=== PATIENT | male | born 1965 | race Caucasian/White ===

== ENCOUNTER 2021-01-10 14:29 | Emergency (ER) | payer MEDICARE, SELFPAY ==
[~2021-01-10] VITALS: Ht 177.8 cm; Wt 77.3 kg
--- OUTSIDE RECORDS SUMMARY | 2021-01-10 14:42 | CCD ---
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 Name Role Phone Maring, Selvin PA Unavailable Unavailable Maring, Selvin PA Unavailable Unavailable Maring, Selvin PA Unavailable Unavailable Maring, Selvin PA Unavailable Unavailable Maring, Selvin PA Unavailable Unavailable Maring, Selvin PA Unavailable Unavailable Maring, Selvin PA Unavailable Unavailable Maring, Selvin PA Unavailable Unavailable Maring, Selvin PA Unavailable Unavailable Maring, Selvin PA Unavailable Unavailable Maring, Selvin PA Unavailable Unavailable Maring, Selvin PA Unavailable Unavailable Maring, Selvin PA Unavailable Unavailable Maring, Selvin PA Unavailable Unavailable Maring, Slevin PA Unavailable Unavailable Maring, Selvin PA Unavailable Unavailable MONAHugh BARLOW MD Unavailable Unavailable MONA, Hugh HOLLIDAY MD Unavailable Unavailable MONAHugh BARLOW MD Unavailable Unavailable MONAHugh BARLOW MD Unavailable Unavailable MONAHugh BARLOW MD Unavailable Unavailable MONAHugh MD Unavailable Unavailable MONAHugh BARLOW MD Unavailable Unavailable MONAHugh BARLOW MD Unavailable Unavailable MONAHugh BARLOW MD Unavailable Unavailable MONAHugh BARLOW MD Unavailable Unavailable MONAHugh BARLOW MD Unavailable Unavailable MONAHugh BARLOW MD Unavailable Unavailable MONAHugh BARLOW MD Unavailable Unavailable MONAHugh BARLOW MD Unavailable Unavailable MONAHugh BARLOW MD Unavailable Unavailable MONAHugh BARLOW MD Unavailable Unavailable Hugh DUNN MD Unavailable Unavailable MONAHugh BARLOW MD Unavailable Unavailable MONAHugh BARLOW MD Unavailable Unavailable MONA, Hugh HOLLIDAY MD Unavailable Unavailable MONA, Hugh HOLLIDAY MD Unavailable Unavailable MONA, Hugh HOLLIDAY MD Unavailable Unavailable MONA, Hugh HOLLIDAY MD Unavailable Unavailable MONA, Hugh HOLLIDAY MD Unavailable Unavailable MONA, Hugh HOLLIDAY MD Unavailable Unavailable MONA, Hugh HOLLIDAY MD Unavailable Unavailable MONA, Hugh HOLLIDAY MD Unavailable Unavailable MONA, Hugh HOLLIDAY MD Unavailable Unavailable MONA, Hugh HOLLIDAY MD Unavailable Unavailable MONA, Hugh HOLLIDAY MD Unavailable Unavailable MONA, Hugh HOLLIDAY MD Unavailable Unavailable MONA, Hugh HOLLIDAY MD Unavailable Unavailable MONA, Hugh HOLLIDAY MD Unavailable Unavailable MONA, Hugh HOLLIDAY MD Unavailable Unavailable MONA, Hugh HOLLIDAY MD Unavailable Unavailable MONA, Hugh HOLLIDAY MD Unavailable Unavailable MONA, Hugh HOLLIDAY MD Unavailable Unavailable MONA, Hugh HOLLIDAY MD Unavailable Unavailable MONA, Hugh HOLLIDAY MD Unavailable Unavailable MONA, Hugh HOLLIDAY MD Unavailable Unavailable MONA, Hugh HOLLIDAY MD Unavailable Unavailable MONA, Hugh HOLLIDAY MD Unavailable Unavailable MONA, Hugh HOLLIDAY MD Unavailable Unavailable MONA, Hugh HOLLIDAY MD Unavailable Unavailable MONA, Hugh HOLLIDAY MD Unavailable Unavailable MONA, Hugh HOLLIDAY MD Unavailable Unavailable MONA, Hugh HOLLIDAY MD Unavailable Unavailable MONA, Hugh HOLLIDAY MD Unavailable Unavailable MONA, Hugh HOLLIDAY MD Unavailable Unavailable MONA, Hugh HOLLIDAY MD Unavailable Unavailable MONA, Hugh HOLLIDAY MD Unavailable Unavailable MONA, Hugh HOLLIDAY MD Unavailable Unavailable MONA, Hugh HOLLIDAY MD Unavailable Unavailable MONA, Hugh HOLLIDAY MD Unavailable Unavailable MONA, Hugh HOLLIDAY MD Unavailable Unavailable MONA, Hugh HOLLIDAY MD Unavailable Unavailable MONA, Hugh HOLLIDAY MD Unavailable Unavailable MONA, Hugh HOLLIDAY MD Unavailable Unavailable MONA, Hugh HOLLIDAY MD Unavailable Unavailable MONA, Hugh HOLLIDAY MD Unavailable Unavailable MONA, Hugh HOLLIDAY MD Unavailable Unavailable MONA, Hugh HOLLIDAY MD Unavailable Unavailable MONA, Hugh HOLLIDAY MD Unavailable Unavailable MONA, Hugh HOLLIDAY MD Unavailable Unavailable MONA, Hugh HOLLIDAY MD Unavailable Unavailable MONA, Hugh HOLLIDAY MD Unavailable Unavailable MONA, Hugh HOLLIDAY MD Unavailable Unavailable MONA, Hugh HOLLIDAY MD Unavailable Unavailable MONA, Hugh HOLLIDAY MD Unavailable Unavailable MONA, Hugh HOLLIDAY MD Unavailable Unavailable MONA, Hugh HOLLIDAY MD Unavailable Unavailable MONA, Hugh HOLLIDAY MD Unavailable Unavailable MONA, Hugh HOLLIDAY MD Unavailable Unavailable MONA, Hugh HOLLIDAY MD Unavailable Unavailable MONA, Hugh HOLLIDAY MD Unavailable Unavailable MONA, Hugh HOLLIDAY MD Unavailable Unavailable MONA, Hugh HOLLIDAY MD Unavailable Unavailable MONA, Hugh HOLLIDAY MD Unavailable Unavailable MONA, Hugh HOLLIDAY MD Unavailable Unavailable MONA, Hugh HOLLIDAY MD Unavailable Unavailable MONA, Hugh HOLLIDAY MD Unavailable Unavailable MONA, Hugh HOLLIDAY MD Unavailable Unavailable Tallerico, D Wilbert DO Unavailable Unavailable Tallerico, D Wilbert DO Unavailable Unavailable Tallerico, D Wilbert DO Unavailable Unavailable Tallerico, D Wilbert DO Unavailable Unavailable [place]erico, D Wilbert DO Unavailable Unavailable Tallerico, D Wilbert DO Unavailable Unavailable Tallerico, D Wilbert DO Unavailable Unavailable Tallerico, D Wilbert DO Unavailable Unavailable Tallerico, D Wilbert DO Unavailable Unavailable Tallerico, D Wilbert DO Unavailable Unavailable Tallerico, D Wilbert DO Unavailable Unavailable Tallerico, D Wilbert DO Unavailable Unavailable Tallerico, D Wilbert DO Unavailable Unavailable Tallerico, D Wilbert DO Unavailable Unavailable Tallerico, D Wilbert DO Unavailable Unavailable Tallerico, D Wilbert DO Unavailable Unavailable Tallerico, D Wilbert DO Unavailable Unavailable Tallerico, D Wilbert DO Unavailable Unavailable Tallerico, D Wilbret DO Unavailable Unavailable Tallerico, D Wilbert DO Unavailable Unavailable Tallerico, D Wilbert DO Unavailable Unavailable CONSUELO, Deanna FERGUSON MD Unavailable Unavailable CONSUELO, Deanna FERGUSON MD Unavailable Unavailable CONSUELO, Deanna FERGUSON MD Unavailable Unavailable CONSUELO, Deanna FERGUSON MD Unavailable Unavailable CONSUELO, Deanna FERGUSON MD Unavailable Unavailable CONSUELO, Deanna FERGUSON MD Unavailable Unavailable CONSUELO, Deanna FERGUSON MD Unavailable Unavailable CONSUELO, Deanna FERGUSON MD Unavailable Unavailable CONSUELO, Deanna FERGUSON MD Unavailable Unavailable CONSUELO, Deanna FERGUSON MD Unavailable Unavailable Martinez, M Trina RECEPTION SPECIALIST Unavailable Unavailable Martinez, M Trina RECEPTION SPECIALIST Unavailable Unavailable Martinez, M Trina RECEPTION SPECIALIST Unavailable Unavailable Martinez, M Trina RECEPTION SPECIALIST Unavailable Unavailable Martinez, M Trina RECEPTION SPECIALIST Unavailable Unavailable Martinez, M Trina RECEPTION SPECIALIST Unavailable Unavailable Martinez, M Trina RECEPTION SPECIALIST Unavailable Unavailable Martinez, M Trina RECEPTION SPECIALIST Unavailable Unavailable Martinez, M Trina RECEPTION SPECIALIST Unavailable Unavailable Martinez, M Trina RECEPTION SPECIALIST Unavailable Unavailable Martinez, M Trina RECEPTION SPECIALIST Unavailable Unavailable Martinez, M Trina RECEPTION SPECIALIST Unavailable Unavailable Martinez, M Trina RECEPTION SPECIALIST Unavailable Unavailable Martinez, M Trina RECEPTION SPECIALIST Unavailable Unavailable Martinez, M Trina RECEPTION SPECIALIST Unavailable Unavailable Martinez, M Trina RECEPTION SPECIALIST Unavailable Unavailable Martinez, M Trina RECEPTION SPECIALIST Unavailable Unavailable Martinez, M Trina RECEPTION SPECIALIST Unavailable Unavailable Martinez, M Trina RECEPTION SPECIALIST Unavailable Unavailable Martinez, M Trina RECEPTION SPECIALIST Unavailable Unavailable Martinez, M Trina RECEPTION SPECIALIST Unavailable Unavailable Martinez, M Trina RECEPTION SPECIALIST Unavailable Unavailable Martinez, M Trina RECEPTION SPECIALIST Unavailable Unavailable Martinez, M Trina RECEPTION SPECIALIST Unavailable Unavailable Martinez, M Trina RECEPTION SPECIALIST Unavailable Unavailable Martinez, M Trina RECEPTION SPECIALIST Unavailable Unavailable Martinez, M Trina RECEPTION SPECIALIST Unavailable Unavailable GRACE, GAYATRI Unavailable Unavailable Travis, [place] Unavailable [phone] Travis, [place] Unavailable [phone] Travis, [place] Unavailable [phone] Travis, [place] Unavailable [phone] [place]ainhaw, [place] Unavailable [phone] Hussain[place], [place] Unavailable [phone] GILBERG, ALICIA PA Unavailable Unavailable GILBERG, ALICIA PA Unavailable Unavailable GILBERG, ALICIA PA Unavailable Unavailable GILBERG, ALICIA PA Unavailable Unavailable GILBERG, ALICIA PA Unavailable Unavailable GILBERG, ALICIA PA Unavailable Unavailable GILBERG, ALICIA PA Unavailable Unavailable GILBERG, ALICIA PA Unavailable Unavailable GILBERG, ALICIA PA Unavailable Unavailable Re-disclosure Warning The records that you are about to access may contain information from federally-assisted alcohol or drug abuse programs. If such information is present, then the following federally mandated warning applies: This information has been disclosed to you from records protected by federal confidentiality rules (42 CFR part 2). The federal rules prohibit you from making any further disclosure of this information unless further disclosure is expressly permitted by the written consent of the person to whom it pertains or as otherwise permitted by 42 CFR part 2. A general authorization for the release of medical or other information is NOT sufficient for this purpose. The Federal rules restrict any use of the information to criminally investigate or prosecute any alcohol or drug abuse patient.The records that you are about to access may contain highly sensitive health information, the redisclosure of which is protected by Article 27-F of the [facility] Public Health law. If you continue you may have access to information: Regarding HIV / AIDS; Provided by facilities licensed or operated by the [facility] Office of Mental Health; or Provided by the [facility] Office for People With Developmental Disabilities. If such information is present, then the following [facility] mandated warning applies: This information has been disclosed to you from confidential records which are protected by state law. State law prohibits you from making any further disclosure of this information without the specific written consent of the person to whom it pertains, or as otherwise permitted by law. Any unauthorized further disclosure in violation of state law may result in a fine or halfway sentence or both. A general authorization for the release of medical or other information is NOT sufficient authorization for further disc losure. 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 Status Observation Descr iption Data Source(s) No Directive Type specified PT STATES NO ADVANCE DIRECTIVES completed No Directive Type specified [facility] No Directive Type specified PT STATES NO ADVANCE DIRECTIVES completed No Directive Type specified [facility] Encounters Encounter Providers Location Date Indications Data Source(s ) Outpatient Attender: Selvin JORDAN 01/10/20 08:04:53 AM EDT - 01/09/2021 08:54:21 AM EDT [facility] ([facility] ) Outpatient Attender: [place] Robles 10/18 11:09:22 AM EDT - 10/18/2020 12:01:52 PM EDT [facility] ([facility] ) Outpatient Attender: Wilbert Castro DO [facility] 05/09/2020 08:00:00 AM EST [facility] ([facility]) Outpatient Attender: [facility] 04/18/2020 07:00:00 AM EST [facility] ([facility]) Outpatient Attender: ALICIA FOY PAAt tender: PHYLLIS CORDERO MDAdmitter: ALICIA FOY PAConsultant: PHYLLIS CORDERO MDConsultant: ALICIA FOY PAConsultant: GAYATRI GRACE OUTPAT[facility] 04/15/2020 08:01:00 AM EST - 04/15/2020 09:43:00 AM [facility] Patient discharged. Outpatient Attender: ALICIA FOY PAAt tender: PHYLLIS CORDERO MDAdmitter: ALICIA FOY PAConsultant: PHYLLIS CORDERO MDConsultant: ALICIA FOY PA OUTPATIENT-[facility] 04/03/2020 09:07:00 AM EST - 04/03/2020 09:35:00 AM [facility] Patient discharged. Recurring Patient Attender: Trina Martinez NPReferrer: MG AKERS MD 03/22/2020 10:36:21 AM [facility] [place] [facility] Status Immunizations Vaccine Date Status Description Data Source(s) COVID-19 VACCINE Moderna 07/20/2020 12:00:00 AM EDT completed [place] Vaccine Series Complete: YESThis Data wa s Submitted to [facility] [address]. COVID-19 VACCINE Moderna 06/22/2020 12:00:00 AM EDT completed [place] Vaccine Series Complete: NOThis Data was Submitted to [facility] [address]. Medications Medication Brand Name Start Date Product Form Dose Route Admi nistrative Instructions Pharmacy Instructions Status Indications Reaction Description Data Source(s) Cephalexin 500 MG Oral Capsule CEPHALEXIN 10/18/2020 12:00:00 AM EDT capsule 21 TAKE ONE CAPSULE BY MOUTH THREE TIMES A DAY FOR 7 DAYS TAKE ONE CAPSULE BY MOUTH THREE TIMES A DAY FOR 7 DAYS SOLD: 10/18/2020 [facility] Insurance Providers Payer name Policy type / Coverage type Policy ID Covered democrat ID Covered democrat's relationship to grimes Policy Grimes Plan Information BC MEDICARE BLUE PPO [id number] Patient is Insur ed [id number] UNINSURED COVID NOTNEEDED Patient is Insured NOTNEEDED [facility] Medicare P [id number] SELF [id number] [facility] MED[facility]ARE [id number] Dione [id number] [facility] MEDICARE [id number] Dione [id number] [employer] MED[employer] BLUE PPO G [id number] Self [id number] [facility] Medicare P [id number] SELF [id number] [facility] MEDICARE [id number] Dione [id number] [employer] Blue [employer] and Blue Shield - [facility] Blue Cross/ Blue Shield [id number] Self [id number] [employer] Blue [employer] and Blue [employer] - [place] Blue Cross/B e Shield [id number] Self [id number] [employer] MEDICARE Medicare [facility] MEDICARE BLUE PPO [id number] SP [id number] [employer] O [id number] S [id number] MEDICARE M [id number] S [id number] A BLUE CROSS O [id number] S [id number] Problems, Conditions, and Diagnoses No Information Surgeries/Procedures Procedure Description Date Indications Data Source(s) RADEX FOOT COMPLETE MINIMUM 3 VIEWS 04/18/2020 12:00:0 0 AM EST [facility] ([facility]) Results ID Date Data Source [id number] 04/20/2020 01:18:04 PM EST [facility] Note status: FINAL (SIGNED)Full name: SIVAKUMAR HUBERate of : 1965Visit ID: [id number] record number: [id number] Care Physician: NONE, NONEAge: 54YSex: Male[facility] 2Date of service: 04/15/2020 08:12Creation date: 04/15/2020 08:12Attending physician: Carlo CORDERO patient first seen: 0815 Informant: PatientHPI Chief Complaint: Left foot painHPI duration: 36 hoursHPI context: 54-year-old male sustained an accidental slip and fall during which he "rolled" his ankle. Since that time he has been taking ibuprofen for pain management and is unable to comfortably bear weight. The patient is offered pain management which he declines.HPImodifying factors: IbuprofenReview of SystemsAll systems reviewed and negative except as noted in HPITriage Note: slipped on ice Thursday am, left foot pain [YARIEL HUBER. 04/15/20 08:11]Past Medical/Surgical HistoryPast medical/surgical history reviewedHome MedicationsHome medications r DignaergiesAllergies reviewedLast Verified By: YARIEL HUBER RN on 04/15/2020 08:12Latex Vital SignsVital signs reviewedMost recent vital signsBP: 124/91 04/15/2020 08:14 Pulse: 74 04/15/2020 08:14 Temp: 98.0 F 04/15/2020 08:14 Resp: 18 04/15/2020 08:14 O2 Sat: 100.0%(Room Air) 04/15/2020 08:14 Calculated BMI: 0.2 04/15/2020 08:06 Pain score 4Admission height (inches): 710Admission weight (kgs): 80Triage Vital SignsTemp: 98F 04/15/2020 08:14 Pulse: 74 bpm 04/15/2020 08:14 Respirations: 18 04/15/2020 08:14 Blood Pressure: 124/91 mmHg 04/15/2020 08:14 O2Sat: 100 % 04/15/2020 08:14 Height: 710 in 04/15/2020 08:06 Weight: 80 kg 04/15/2020 08:06 Calculated BMI: 0.2 04/15/2020 08:06 Physical ExamConst: Within normal limitsCVS: Within normal limitsResp: Within normal limitsMusccomments: There is minimal swelling at the region of the medial malleolus of the left low er extremity.Extremcomments: The dorsum of the left foot with tenderness to palpation. Swelling at the medial malleolus. There is no crepitus or discoloration; distal capillary refill is brisk, sensation remains intact.Skin: Within normal limitsInitial impression: Sprain/strain/fracture involving the left ankle and/or foot. Pain management, x-rays.OrdersStart Date;Description;Frequency;Ordered By;Status04/15/2020;ANKLE COMPLETE LEFT ;Once;ALICIA FOY;[place] Met04/15/2020;FOOT COMPLETE LEFT ;Once;ALICIA FOY;[place] Met04/15/2020;ED-PROVIDE CRUTCHES WITH TRAINING ;Once;ALICIA FOY;[place] MetLaboratoryRadiologyXray results comments: X-ray left foot: Cortical irregularity at the tuft of the first distal phalanx which could represent a nondisplaced fracture in the appropriate clinical context, recommend correlation for point tenderness. No other evidence of fracture or dislocation. X-ray left ankle corticated ossific fragment at the tip of the medial malleolus, injury of chronic nature. No acute osseous abnormality appreciated. No significant ankle joint effusion.EKG/Rhythm Strip InterpretationProcedures: Verbal consent obtained, timeout taken and patient identified with 2 forms identification, using aseptic technique, the left foot is wrapped with 3 inch web roll, a 3 inch short leg fiberglass splint is applied and secured with 4 inch Guido wrap. Pre and post pulse, motor and sensation are assessed and normal. Crutches are provided. Patient tolerated procedure well.Diagnosis: Foot pain; toe fractureDisposition time: 909 Condition: StableDischarge plan: Pain management, crutches for ambulation, orthopedic follow-up.Midlevel signature: Sherlyn OROSCO signature date: 04/15/2020 09:27Physician signature: Lloyd FOWLER signature date: 04/18/2020 09:09 Name Value Range Interpretation Code Description Data Maryann rce(s) Supporting Document(s) ID Date Data Source [id number] 04/18/2020 08:14:00 AM EST [facility] ([facility]) Name Value Range Interpretation Code Description Data Maryann rce(s) Supporting Document(s) Foot, Complete LT Laboratory test result [facility] ([facility]) ID Date Data Source [id number] 04/15/2020 08:39:25 AM EST [facility] 04/15/2020 8:27 AMLEFT FOOT X-RAYSCLINICA L INFORMATION: INJURY, UNSPECIFIED, -- INJURY, UNSPECIFIEDCOMPARISON: None.PROCEDURE: Frontal, lateral, and oblique projections of the left foot wereobtained.IMPRESSION/FINDINGS:Cortical irregularity at the tuft of the first distal phalanx which couldrepresent a nondisplaced fracture in the appropriate clinical context,recommend correlation for point tenderness. No other evidence of fracture ordislocation.END OF IMPRESSIONI have personally reviewed the images and the Resident's/Fellow'sinterpretation and agree with or edited the findings.[facility] submits Rad[facility] then provides those same results to [facility]. Allresults are available to [facility] and [facility] provider portalusers. [facility] DICOM images are available to [facility] provider portal users only. [facility] DICOMimages are not available to the [facility] provider portal users. There isno current [facility] functionality allowing images to be available [facility] to [facility] connectivity.Interpreted By: Antione Sanders M.D.Electronically signed By: Gayatri Grace M.D., MBA, FACRRead By: GAYATRI Springerte: 04/15/2020 08:36 Name Value Range Interpretation Code Description Data Maryann rce(s) Supporting Document(s) ID Date Data Source [id number] 04/15/2020 08:37:39 AM EST [facility] 04/15/2020 8:28 AMLEFT ANKLE X-RAYSCLINIC AL INFORMATION: PAIN, UNSPECIFIED, -- PAIN, UNSPECIFIEDCOMPARISON: None.PROCEDURE: AP, lateral, and mortise projections of the left ankle were obtained.IMPRESSION/FINDINGS:Corticated ossific fragment at the tip of the medial malleolus, injury ofchronic nature. No acute osseous abnormality appreciated. No significant anklejoint effusion.END OF IMPRESSIONI have personally reviewed the images and the Resident's/Fellow'sinterpretation and agree with or edited the findings.[facility] submits Radiology results to [facility] then provides those same results to [facility]. Allresults are available to [facility] and [facility] provider portalusers. [facility] DICOM images are available to [facility] provider portal users only. [facility] DICOMimages are not available to the [facility] provider portal users. There isno current [facility] functionality allowing images to be available throughthe [facility] to [facility] connectivity.Interpreted By: Isaura Moe MDElectronically signed By: Gayatri Grace M.D., MBA, FACRRead By: GAYATRI Ashton: 04/15/2020 08:34 Name Value Range Interpretation Code Description Data Maryann rce(s) Supporting Document(s) ID Date Data Source [id number] 04/05/2020 11:15:16 AM EST [facility] Note status: FINAL (SIGNED)Full name: Reji HUBER of : 1965Visit ID: [id number] record number: [id number] Care Physician: NONE, NONEAge: 54YSex: Male[facility] location: [facility] 3Date of service: 04/03/2020 09:36Creation date: 04/03/2020 09:36Attending physician: Carlo CORDERO patient first seen: 919 Informant: PatientHPI Chief Complaint: Subjective fever, generalized body aches and fatigue, abdominal discomfort and headache.HPI duration: 48 hoursHPI context: 54-year-old male with possible sick contact presents with a 2-day history of generalized body aches, fatigue, abdominal discomfort, headache and subjective fever.HPINo modifying factors: NoneReview of SystemsAll systems reviewed and negative except as noted in HPITriage Note: pt states fevers, bodyaches, fatigue, stomachache, BURNS. unemployed [ROSIE TEMPLE 04/03/20 09:21]Past Medical/Surgical HistoryPast medical/surgical history reviewedHome MedicationsHome medications reviewedAllergiesAllergies reviewedLast Verified By: ROSIE TEMPLE RN on 04/03/2020 09:21Latex Vital SignsVital signs reviewedMost recent vital signsBP: 143/86 04/03/2020 09:30 Pulse: 67 04/03/2020 09:30 Temp: 99.0 F 04/03/2020 09:30 Resp: 16 04/03/2020 09:30 O2 Sat: 98.0%(Room Air) 04/03/2020 09:30 Calculated BMI: 25.2 04/03/2020 09:18 Admission height (inches): 70Admission weight (kgs): 79Triage Vital SignsTemp: 99F 04/03/2020 09:30 Pulse: 67 bpm 04/03/2020 09:30 Respirations: 16 04/03/2020 09:30 Blood Pressure: 143/86 mmHg 04/03/2020 09:30 O2Sat: 98 % 04/03/2020 09:30 Height: 70 in 04/03/2020 09:18 Weight: 79 kg 04/03/2020 09:18 Calculated BMI: 25.2 04/03/2020 09:18 Physical ExamConst: Within normal limitsEyes: within normal limitsHENT: Within normal limits, No nasal discharge, Oral mucosa moist/clearCVS: Within normal limitsResp: Within normal limits, Clear to auscultation bilaterally, No wheezes/rales/rhonchiSkin: Within normal limitsInitial impression: Viral syndrome. Obtain specimen for COVID-19 testingOrdersStart Date;Description;Frequency;Ordered By;Status04/03/2020;COVID-19, Nucleic Acid Amplification PCR [[employer]] ;Once;PHYLLIS CORDERO;Dates MetLaboratoryRadiologyEKG/Rhythm Strip InterpretationDiagnosis: Viral syndromeDisposition time: 929 Condition: UnchangedDischarge plan: Quarantine, follow labs, zcqg-uro-[id number] remedies for symptoms as needed.Midlevel signature: Sherlyn OROSCO signature date: 04/03/2020 09:38Physician signature: Lloyd FOWLER signature date: 04/05/2020 11:13 Name Value Range Interpretation Code Description Data Maryann rce(s) Supporting Document(s) ID Date Data Source [id number] 04/05/2020 11:15:14 AM EST [facility] Note status: FINAL (SIGNED)Patient name: Reji NARANJO of : 1965Visit ID: [id number] record number: [id number]: 54YSex: MaleRoom [facility] location: [facility] 3Date of service: 04/03/2020 15:10Creation date: 04/03/2020 15:10Created by: ALICIA [facility]ds [facility]_Care_Physician: NONE, NONEProgress: Spoke with patient, identified with 2 forms of identification, notified him of a COVID-19 negative test result.Midlevel signature: Sherlyn OROSCO signature date: 04/03/2020 15:10Physician signature: Lloyd FOWLER signature date: 04/05/2020 11:13 Name Value Range Interpretation Code Description Data Maryann rce(s) Supporting Document(s) ID Date Data Source [id number] 04/03/2020 09:24:00 AM EST [facility] Name Value Range Interpretation Code Description Data Maryann rce(s) Supporting Document(s) SARS-CoV-2 RdRp gene Resp Ql DHARMESH+probe Negative [facility] This lab was ordered by [facility] and reported by [facility]. ID Date Data Source [id number] 04/03/2020 01:04:00 PM EST [facility] Name Value Range Interpretation Code Description Data Maryann rce(s) Supporting Document(s) COVID-19, PCR NEGATIVE NEGATIVE [facility] Negative results do not preclude SARS-Co V-2 infection and should not be used as the sole basis for patient management decisions.Testing was performed using the [employer] ID NOW COVID-19 test. This test has been authorized by FDA under an Emergency Use Authorization (EUA). Procedure Social History No Information Vital Signs ID Date Data Source UNK Name Value Range Interpretation Code Description Data Source(s) Body weight 79.380 kg 79.380 kg [facility] ([facility]) Body height 70 [in_i] 70 [in_i] [facility] ([facility]) 5'10" Body height 177.8 cm 177.8 cm [facility] ([facility]) Body mass index (BMI) [Ratio] 25.1 kg/m2 25.1 k g/m2 [facility] ([facility]) Body weight 175.00 [lb_av] 175.00 [lb_av] [facility] ([facility]) reported Oxygen saturation in Arterial blood by Pulse oximetry 98 % 98 % [facility] ([facility]) Respiratory rate 16 /min 16 /min [facility] ( [facility]) Heart rate 90 /min 90 /min [facility] ([facility]) Body temperature 97.7 [degF] 97.7 [degF] [facility] ([facility]) Oxygen saturation in Arterial blood by Pulse oximetry 98 % 98 % [facility] ([facility]) Respiratory rate 14 /min 14 /min [facility] ( [facility]) Body height 70 [in_i] 70 [in_i] [facility] ([facility]) 5'10" Body height 177.8 cm 177.8 cm [facility] ([facility]) Body mass index (BMI) [Ratio] 25.1 kg/m2 25.1 k g/m2 [facility] ([facility]) Body temperature 97.4 [degF] 97.4 [degF] [facility] ([facility]) Heart rate 81 /min 81 /min [facility] ([facility]) Body weight 175.00 [lb_av] 175.00 [lb_av] [facility] ([facility]) Body weight 79.380 [facility] ID Date Data Source [id number] 04/20/2020 01:18:04 PM EST [facility] Name Value Range Interpretation Code Description Data Source(s) WEIGHT RECORDED 80 KG 80 KG [facility] Height 1803.4 CM 1803.4 CM [facility] ID Date Data Source [id number] 04/05/2020 07:53:39 PM EST [facility] Name Value Range Interpretation Code Description Data Source(s) WEIGHT RECORDED 79 KG 79 KG [facility] Height 177.8 CM 177.8 CM [facility]
[2021-01-10] MEDS ORDERED: ACETAMINOPHEN 500 MG TAB PO ONE (17:40)
[2021-01-10] MEDS ORDERED: ONDANSETRON 4MG/2ML VIAL IV ONE (17:40)
--- NOTE | 2021-01-10 18:13 | REP ---
INDICATION: Coronavirus workup. COMPARISON: None. TECHNIQUE: Single portable AP view of the chest was performed. FINDINGS: There is no acute infiltrate or pulmonary edema. Lungs are clear. The heart is not significantly enlarged. The mediastinal silhouette is unremarkable. The visualized osseous structures are intact. IMPRESSION: No acute pulmonary disease. <Electronically signed by Shreyas Mchugh > 01/10/21 [id number]
[2021-01-10 19:15] VITALS: O2SAT 98
--- NOTE | 2021-01-10 19:16 | ECGEPIP ---
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
--- OUTSIDE RECORDS SUMMARY | 2021-01-10 19:18 | CCD ---
Author Author [facility] Organization [facility] Address Unknown Phone Unavailable Care Team Providers Care Records Administrator Name Role Phone Maring, Selvin PA Unavailable [...] Unavailable MONAHugh BARLOW MD Unavailable Unavailable MONAHugh ABRLOW MD Unavailable Unavailable MONAHugh BARLOW MD Unavailable [...] FERGUSON MD Unavailable Unavailable Martinez, M Trina MANDREL CLEANER Unavailable Unavailable Martinez, M Trina MANDREL CLEANER Unavailable Unavailable Martinez, M Trina MANDREL CLEANER Unavailable Unavailable Martinez, M Trina MANDREL CLEANER Unavailable Unavailable Martinez, M Trina MANDREL CLEANER Unavailable Unavailable Martinez, M Trina MANDREL CLEANER Unavailable Unavailable Martinez, M Trina MANDREL CLEANER Unavailable Unavailable Martinez, M Trina MANDREL CLEANER Unavailable Unavailable Martinez, M Trina MANDREL CLEANER Unavailable Unavailable Martinez, M Trina MANDREL CLEANER Unavailable Unavailable Martinez, M Trina MANDREL CLEANER Unavailable Unavailable Martinez, M Trina MANDREL CLEANER Unavailable Unavailable Martinez, M Trina MANDREL CLEANER Unavailable Unavailable Martinez, M Trina MANDREL CLEANER Unavailable Unavailable Martinez, M Trina MANDREL CLEANER Unavailable Unavailable Martinez, M Trina MANDREL CLEANER Unavailable Unavailable Martinez, M Trina MANDREL CLEANER Unavailable Unavailable Martinez, M Trina MANDREL CLEANER Unavailable Unavailable Martinez, M Trina MANDREL CLEANER Unavailable Unavailable Martinez, M Trina MANDREL CLEANER Unavailable Unavailable Martinez, M Trina MANDREL CLEANER Unavailable Unavailable Martinez, M Trina MANDREL CLEANER Unavailable Unavailable Martinez, M Trina MANDREL CLEANER Unavailable Unavailable Martinez, M Trina MANDREL CLEANER Unavailable Unavailable Martinez, M Trina MANDREL CLEANER Unavailable Unavailable Martinez, M Trina MANDREL CLEANER Unavailable Unavailable Martinez, M Trina MANDREL CLEANER Unavailable Unavailable GRACE, GAYATRI Unavailable Unavailable Travis, [place] Unavailable [phone] Travis, [place] Unavailable [phone] Travis, [place] Unavailable [phone] Travis, [place] Unavailable [phone] [place], [place] Unavailable [phone] [place], [place] Unavailable [phone] GILBERG, ALICIA PA Unavailable Unavailable GILBERG, ALICIA [...] is protected by Article 27-F of the [facility] Public Health law. If you continue you may have access to information: Regarding HIV / AIDS; Provided by facilities licensed or operated by the [facility] Office of Mental Health; or Provided by the [facility] Office for People With Developmental Disabilities. If such information is present, then the following [facility] mandated warning applies: This information has [...] law may result in a fine or nursing home sentence or both. A general authorization for the release of medical or other information is NOT sufficient authorization for further disc losure. 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 Status Observation Descr iption Data Source(s) No Directive Type specified PT STATES NO ADVANCE DIRECTIVES completed No Directive Type specified [facility] No Directive Type specified PT STATES NO ADVANCE DIRECTIVES completed No Directive Type specified [facility] Encounters Encounter Providers Location Date Indications Data Source(s ) Outpatient Attender: Selvin JORDAN 01/10/20 08:04:53 AM EDT - 01/09/2021 08:54:21 AM EDT [facility] ([facility] ) Outpatient Attender: [place] Robles 10/18 11:09:22 AM EDT - 10/18/2020 12:01:52 PM EDT [facility] ([facility] ) Outpatient Attender: Wilbert Castro DO [facility] 05/09/2020 08:00:00 AM EST [facility]patient [facility]: [facility] 04/18/2020 07:00:00 AM EST [facility] ([facility]) Outpatient Attender: ALICIA FOY PAAt tender: PHYLLIS CORDERO MDAdmitter: ALICIA FOY PAConsultant: PHYLLIS CORDERO MDConsultant: ALICIA FOY PAConsultant: GAYATRI GRACE [facility] 04/15/2020 08:01:00 AM EST - 04/15/2020 09:43:00 AM [facility] Patient discharged. Outpatient Attender: ALICIA FOY PAAt tender: PHYLLIS CORDERO MDAdmitter: ALICIA FOY PAConsultant: PHYLLIS CORDERO MDConsultant: ALICIA FOY PA [facility] 04/03/2020 09:07:00 AM EST - 04/03/2020 09:35:00 AM [facility] Patient discharged. Recurring Patient Attender: Trina Martinez NPReferrer: MG AKERS MD 03/22/2020 10:36:21 AM [facility] [place] Functional Status Immunizations Vaccine Date Status Description Data Source(s) COVID-19 VACCINE Moderna 07/20/2020 12:00:00 AM EDT completed [facility] Vaccine Series Complete: YESThis Data wa s Submitted to [facility] Via [facility]. COVID-19 VACCINE Moderna 06/22/2020 12:00:00 AM EDT completed [facility] Vaccine Series Complete: NOThis Data was Submitted to [facility] Via [employer]. Medications Medication Brand Name Start Date Product [...] type / Coverage type Policy ID Covered republican ID Covered republican's relationship to grimes Policy Grimes Plan Information BC MEDICARE BLUE PPO [id number] Patient is Insur ed [id number] UNINSURED COVID NOTNEEDED Patient is Insured NOTNEEDED [facility] Medicare P [id number] SELF [id number] [facility] MEDICARE [id number] Dione [id number] [facility] MEDICARE [id number] Dione [id number] [employer] MEDICARE BLUE PPO G [id number] Self [id number] [facility] Medicare P [id number] SELF [id number] [facility] MEDICARE [id number] Dione [id number] [employer] Blue Cross and Blue Shield - [facility] Blue Cross/ Blue Shield [id number] Self [id number] [employer] Blue Cross and Blue Shield - [place] Blue Cross/B e Shield [id number] Self [id number] [employer] BCBS MEDICARE Medicare [facility] MEDICARE BLUE PPO 306 [id number] SP [id number] [employer] BCBS O [id number] S [id number] MEDICARE M [id number] S [id number] A BLUE CROSS O [id number] S [id number] Problems, Conditions, and Diagnoses No Information Surgeries/Procedures Procedure Description Date Indications Data Source(s) RADEX FOOT COMPLETE MINIMUM 3 VIEWS 04/18/2020 12:00:0 0 AM EST [facility] ([facility]) Results ID Date Data Source [id number] 04/20/2020 01:18:04 PM EST [facility] Note status: FINAL (SIGNED)Full name: SIVAKUMAR HUBERate of : 1965Visit ID: [id number] record number: [id number] Care Physician: NONE, NONEAge: 54YSex: Male[facility] 2Date of service: 04/15/2020 08:12Creation date: 04/15/2020 [...] rce(s) Supporting Document(s) ID Date Data Source [id number] 04/18/2020 08:14:00 AM EST [facility] ([facility]) Name Value Range Interpretation Code Description Data Maryann rce(s) Supporting Document(s) Foot, Complete LT Laboratory test result [facility] ([facility]) ID Date Data Source [id number] 04/15/2020 08:39:25 AM EST [facility] 04/15/2020 8:27 AMLEFT FOOT X-RAYSCLINICA [...] Resident's/Fellow'sinterpretation and agree with or edited the findings.[facility] submits Radiology results to [facility] and[facility] then provides those same results to [facility]. Allresults are available to [facility] and [facility] provider portalusers. [facility] DICOM images are available to [facility] provider portal users only. [facility] DICOMimages are not available to the [facility] provider portal users. There isno current [facility] functionality allowing images to be [facility] connectivity.Interpreted By: Antione Sanders M.D.Electronically signed By: Gayatri Grace M.D., MBA, FACRRead By: GAYATRI Springerte: 04/15/2020 08:36 Name Value Range Interpretation Code Description Data Maryann rce(s) Supporting Document(s) ID Date Data Source [id number] 04/15/2020 08:37:39 AM EST [facility] 04/15/2020 8:28 AMLEFT ANKLE X-RAYSCLINIC AL INFORMATION: PAIN, UNSPECIFIED, -- PAIN, UNSPECIFIEDCOMPARISON: None.PROCEDURE: AP, lateral, and mortise projections of the left ankle were obtained.IMPRESSION/FINDINGS:Corticated ossific fragment at the tip of the medial malleolus, injury ofchronic nature. No acute osseous abnormality appreciated. No significant anklejoint effusion.END OF IMPRESSIONI have personally reviewed the images and the Resident's/Fellow'sinterpretation and agree with or edited the findings.[facility] submits Radiology results to [facility] then provides those same results to [facility]. Allresults are available to [facility] and [facility] provider portalusers. [facility] DICOM images are available to [facility] provider portal users only. [facility] DICOMimages are not available to the [facility] provider portal users. There isno current [facility] functionality allowing images to be available throughthe [facility] to [facility] connectivity.Interpreted By: Isaura Moe MDElectronically signed By: Gayatri Grace M.D., MBA, FACRRead By: GAYATRI Ashton: 04/15/2020 08:34 Name Value Range Interpretation Code Description Data Maryann rce(s) Supporting Document(s) ID Date Data Source [id number] 04/05/2020 11:15:16 AM EST [facility] Note status: FINAL (SIGNED)Full name: Reji HUBER of : 1965Visit ID: [id number] record number: [id number] Care Physician: NONE, NONEAge: 54YSex: MaleRoom [facility] location: [facility] 3Date of service: 04/03/2020 09:36Creation date: 04/03/2020 [...] testingOrdersStart Date;Description;Frequency;Ordered By;Status04/03/2020;COVID-19, Nucleic Acid Amplification PCR [[employer]] ;Once;PHYLLIS CORDERO;Dates MetLaboratoryRadiologyEKG/Rhythm Strip InterpretationDiagnosis: Viral syndromeDisposition time: 929 Condition: UnchangedDischarge plan: Quarantine, follow labs, oxwx-rpa-uzjcjmi remedies for symptoms as needed.Midlevel signature: Sherlyn OROSCO signature date: 04/03/2020 09:38Physician signature: Lloyd FOWLER signature date: 04/05/2020 11:13 Name Value Range Interpretation Code Description Data Maryann rce(s) Supporting Document(s) ID Date Data Source [id number] 04/05/2020 11:15:14 AM EST [facility] Note status: FINAL (SIGNED)Patient name: Reji NARANJO of : 1965Visit ID: [id number] record number: [id number]: 54YSex: MaleRoom [facility] location: [facility] 3Date of service: 04/03/2020 15:10Creation date: 04/03/2020 15:10Created by: ALICIA [facility]_Care_Physician: NONE, NONEProgress: Spoke with patient, identified with 2 forms of identification, notified him of a COVID-19 negative test result.Midlevel signature: Sherlyn OROSCO signature date: 04/03/2020 15:10Physician signature: Lloyd FOWLER signature date: 04/05/2020 11:13 Name Value Range Interpretation Code Description Data Maryann rce(s) Supporting Document(s) ID Date Data Source [id number] 04/03/2020 09:24:00 AM EST [facility] Name Value Range Interpretation Code Description Data Maryann rce(s) Supporting Document(s) SARS-CoV-2 RdRp gene Resp Ql DHARMESH+probe Negative [facility] This lab was ordered by [facility] and reported by [facility]. ID Date Data Source [id number] 04/03/2020 01:04:00 PM EST [facility] Name Value Range Interpretation Code Description Data Maryann rce(s) Supporting Document(s) COVID-19, PCR NEGATIVE NEGATIVE [facility] Negative results do not preclude SARS-Co V-2 infection and should not be used as the sole basis for patient management decisions.Testing was performed using the [employer] ID NOW COVID-19 test. This test has been authorized by FDA under an Emergency Use Authorization (EUA). Procedure Social History No Information Vital Signs ID Date Data Source UNK Name Value Range Interpretation Code Description Data Source(s) Body weight 175.00 [lb_av] 175.00 [lb_av] [facility] ([facility]) reported Body weight 79.380 kg 79.380 kg [facility] ([facility]) Body height 70 [in_i] 70 [in_i] [facility] ([facility]) 5'10" Body height 177.8 cm 177.8 cm [facility] ([facility]) Body mass index (BMI) [Ratio] 25.1 kg/m2 25.1 k g/m2 [facility] ([facility]) Heart rate 90 /min 90 /min [facility] ([facility]) Body temperature 97.7 [degF] 97.7 [degF] [facility] ([facility]) Oxygen saturation in Arterial blood by Pulse oximetry 98 % 98 % [facility] ([facility]) Respiratory rate 16 /min 16 /min [facility] ( [facility]) Oxygen saturation in Arterial blood by Pulse oximetry 98 % 98 % [facility] ([facility]) Respiratory rate 14 /min 14 /min [facility] ( [facility]) Body height 70 [in_i] 70 [in_i] [facility] ([facility]) 5'10" Body height 177.8 cm 177.8 cm [facility] ([facility]) Body mass index (BMI) [Ratio] 25.1 kg/m2 25.1 k g/m2 [facility] ([facility]) Heart rate 81 /min 81 /min [facility] ([facility]) Body temperature 97.4 [degF] 97.4 [degF] [facility] ([facility]) Body weight 175.00 [lb_av] 175.00 [lb_av] [facility] ([facility]) Body weight 79.380 kg 79.380 kg [facility] ([facility]) ID Date Data Source [id number] 04/20/2020 01:18:04 PM EST [facility] Name Value Range Interpretation Code Description Data Source(s) WEIGHT RECORDED 80 KG 80 [facility].4 CM 1803.4 CM [facility] ID Date Data Source [id number] 04/05/2020 07:53:39 PM EST [facility] Name Value Range Interpretation Code Description Data Source(s) WEIGHT RECORDED 79 KG 79 KG [facility] 177.8 CM 177.8 CM [facility]
[2021-01-10 19:28] LABS: HEMATOCRIT 39.1 % (42.0-52.0); HEMOGLOBIN 13.3 g/dl (13.5-17.5); MEAN CORPUSCULAR HEMOGLOBIN 30.2 pg (27.0-33.0); MEAN CORPUSCULAR VOLUME 88.9 fl (80.0-96.0); PLATELET COUNT, AUTOMATED 113 10^3/uL (150-450); WHITE BLOOD COUNT 12.2 10^3/uL (4.0-10.0)
[2021-01-10] MEDS ORDERED: NS 1,000 ML IV ONE (19:30)
[2021-01-10 19:54] LABS: ATYPICAL LYMPH 1 % (0-5); LYMPHOCYTES 6 % (16-44); NEUTROPHILS 88 % (28-66); PLATELET ESTIMATE DECREASED (NORMAL)
[2021-01-10 20:05] LABS: ALBUMIN 2.5 GM/DL (3.2-5.2); ALT/SGPT 94 U/L (12-78); BILIRUBIN,TOTAL 1.3 MG/DL (0.2-1.0); BLOOD UREA NITROGEN 24 MG/DL (7-18); CALCIUM LEVEL 8.4 MG/DL (8.5-10.1); CARBON DIOXIDE LEVEL 27 MEQ/L (21-32); CHLORIDE LEVEL 95 MEQ/L (98-107); CK-MB VALUE MASS < 1.0 NG/ML (<3.6); CPK CREATINE PHOSPHOKINASE 119 U/L (39-308); CREATININE FOR GFR 0.96 MG/DL (0.70-1.30); GLOMERULAR FILTRATION RATE > 60.0 (>56); GLUCOSE, FASTING 112 MG/DL (70-100); LDH LACTATE DEHYDROGENASE 314 U/L (87-241); MAGNESIUM LEVEL 2.2 MG/DL (1.8-2.4); MB/CK RELATIVE INDEX 0.84 (< OR =4); POTASSIUM SERUM 3.5 MEQ/L (3.5-5.1); SODIUM LEVEL 129 MEQ/L (136-145); TOTAL PROTEIN 5.9 GM/DL (6.4-8.2); TROPONIN I < 0.02 NG/ML (< 0.10)
[2021-01-10] MEDS ORDERED: ISOVUE-370 76% 100ML VIAL As Ordered ONE (20:35)
[2021-01-10 21:21] VITALS: BP 124/61
--- NOTE | 2021-01-10 22:37 | REPVR ---
PROCEDURE INFORMATION: Exam: CTA Chest With Contrast Exam date and time: 01/10/2021 9:00 PM Age: 55 years old Clinical indication: Shortness of breath; Additional info: R/O pe TECHNIQUE: Imaging protocol: Computed tomographic angiography of the chest with contrast. 3D rendering (Not supervised by radiologist): MIP and/or 3D reconstructed images were created by the technologist. Radiation optimization: All CT scans at this facility use at least one of these dose optimization techniques: automated exposure control; mA and/or kV adjustment per patient size (includes targeted exams where dose is matched to clinical indication); or iterative reconstruction. Contrast material: ISOVUE 370; Contrast volume: 100 ml; Contrast route: INTRAVENOUS (IV); COMPARISON: CR PORTABLE CHEST X-RAY 01/10/2021 5:44 PM FINDINGS: Pulmonary arteries: There is opacification of the pulmonary arteries with no evidence of pulmonary embolus. There are multiple small lymph nodes and lymphoid tissue at the right and left hilum and following the bronch right and left infrahilar region. This is greater on the right. Aorta: There is opacification of the aorta which appears intact. Thyroid: Normal thyroid. Lungs: There is a 5 mm round density abutting the pleura right upper lung. There is a 1 cm oval nodular density at the right lung base abutting the diaphragm. 5 mm nodular density abutting the pleural a left mid lung field and similar 4 mm density abutting the pleura lateral left lung base. There is no evidence of pneumothorax or pleural effusion. Heart: The heart is normal in size and there is no pericardial effusion. Lymph nodes: Small lymph nodes right and left axilla Adrenal glands: The in there is adrenal hypertrophy. Bones/joints: There is no significant bony abnormality. IMPRESSION: 1. No evidence of pulmonary embolus. 2. Scattered small nodular densities right and left lung abutting the pleura. 3. Prominent lymphoid tissue and small lymph nodes right and left hilum greater on the right. Suggest follow-up CT scan in 5 months for re-evaluation of these findings and to document stability. Electronically signed by: Sean Silvestre On 01/10/2021 22:36:22 PM
[2021-01-10 22:45] LABS: CK-MB VALUE MASS < 1.0 NG/ML (<3.6); CPK CREATINE PHOSPHOKINASE 94 U/L (39-308); MB/CK RELATIVE INDEX 1.06 (< OR =4); TROPONIN I < 0.02 NG/ML (< 0.10)
--- NOTE | 2021-01-10 22:48 | REPVR ---
PROCEDURE INFORMATION: Exam: CT Abdomen And Pelvis With Contrast Exam date and time: 01/10/2021 9:00 PM Age: 55 years old Clinical indication: Nausea and vomiting; Abdominal pain; Generalized; Additional info: Diffuse abd pain, n/v/d, transaminitis/bilirubin TECHNIQUE: Imaging protocol: Computed tomography of the abdomen and pelvis with contrast. Radiation optimization: All CT scans at this facility use at least one of these dose optimization techniques: automated exposure control; mA and/or kV adjustment per patient size (includes targeted exams where dose is matched to clinical indication); or iterative reconstruction. Contrast material: ISOVUE 370; Contrast volume: 100 ml; Contrast route: INTRAVENOUS (IV); COMPARISON: CR PORTABLE CHEST X-RAY 01/10/2021 5:44 PM FINDINGS: Liver: Normal appearing liver. Gallbladder and bile ducts: Normal common bile duct. Partially contracted gallbladder. Pancreas: Normal pancreas. Normal pancreatic duct. Spleen: Normal appearing spleen. Adrenal glands: Hypertrophy of the adrenal glands. Kidneys and ureters: There is enhancement of both kidneys. 7 mm cyst lower aspect of the right kidney. There is no evidence of hydronephrosis. Stomach and bowel: There is no evidence of small-bowel obstruction. Appendix: Normal appendix. Intraperitoneal space: There is no evidence of pneumoperitoneum. There is no evidence of mesenteric mass. There is no evidence of pneumoperitoneum. Vasculature: There is opacification of the aorta with some calcified atherosclerotic plaque formation. There is opacification of the SMV and the SMA. Lymph nodes: Unremarkable. No enlarged lymph nodes. Urinary bladder: Small amount of urine in the urinary bladder. Reproductive: Moderate enlargement of the prostate with calcification. Bones/joints: There is mild posterior disc osteophyte complex L4-L5. Soft tissues: Unremarkable. IMPRESSION: 1. Normal appearing pancreas. 2. No evidence of biliary dilatation. COMMENTS: Consistent with the [employer]'s Incidental Findings Committee white paper (J Am Benji Radiol 2018): Any incidental renal lesion less than 1 cm or classified as too small to characterize, or any incidental cystic renal lesion characterized as simple-appearing, is likely benign. No follow-up imaging is recommended for these lesions per consensus recommendations based on imaging criteria. Electronically signed by: Sean Silvestre On 01/10/2021 22:46:53 PM
--- NOTE | 2021-01-10 22:53 | REPVR ---
PROCEDURE INFORMATION: Exam: US Abdomen, Limited; Right Upper Quadrant Exam date and time: 01/10/2021 10:20 PM Age: 55 years old Clinical indication: Abdominal pain; Acute; Additional info: Abd pain, n/v/d, elevated lfts and bilirubin TECHNIQUE: Imaging protocol: US abdomen. Real time ultrasound with image documentation. Limited exam focused on the right upper quadrant. COMPARISON: CT ABD/PEL W/IV CONTRAST ONLY 01/10/2021 8:59 PM FINDINGS: Liver: Normal appearing liver. Gallbladder: Tiny cholesterol polyp of the gallbladder. Common bile duct: Common bile duct is normal in size measuring 6 mm. Pancreas: Normal appearing pancreas. Right kidney: The right kidney measures 11.2 cm in length with no evidence of hydronephrosis. Small cyst an area of scarring right kidney. This may also be a small fat containing lesion such is a angiomyolipoma IMPRESSION: 1. Tiny cholesterol polyp of the gallbladder. 2. Small echogenic focus of the kidney may be an area of scarring or angiomyolipoma. Electronically signed by: Sean Silvestre On 01/10/2021 22:53:18 PM
--- NOTE | 2021-01-12 06:28 | ECGEPIP ---
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
== END 2021-01-11 00:09 | disposition home or self-care (01) ==
LOC: M ED 14:29
DX: R91.8 Other nonspecific abnormal finding of lung field (principal); R74.01 Elevation of levels of liver transaminase levels; D69.6 Thrombocytopenia, unspecified; R59.9 Enlarged lymph nodes, unspecified; R11.2 Nausea with vomiting, unspecified; R19.7 Diarrhea, unspecified; Z53.9 Procedure and treatment not carried out, unspecified reason; I44.7 Left bundle-branch block, unspecified; F41.9 Anxiety disorder, unspecified; F32.9 Major depressive disorder, single episode, unspecified; F43.20 Adjustment disorder, unspecified; M54.50 Low back pain, unspecified; F17.200 Nicotine dependence, unspecified, uncomplicated; F12.10 Cannabis abuse, uncomplicated; Z91.040 Latex allergy status
CPT/HCPCS: 71045; 71275; 74177; 76705; 80053; 81001; 82550; 82553; 83605; 83615; 83735; 84484; 85025; 85379; 86140; 87088; 87186; 87798; 93005; 96374; 99284; J2405; Q9967; U0002

== ENCOUNTER 2021-01-16 06:59 | Inpatient (IN) | payer MEDICARE, SELFPAY ==
[~2021-01-16] VITALS: Ht 180.3 cm; Wt 77.1 kg
--- OUTSIDE RECORDS SUMMARY | 2021-01-16 07:04 | CCD ---
Author Author [facility] Organization [facility] Address Unknown Phone Unavailable Care Team Providers Care Funeral Professional Name Role Phone Maring, Selvin PA Unavailable [...] Unavailable Unavailable Maring, Selvin PA Unavailable Unavailable Hugh DUNN MD Unavailable Unavailable MONAHugh BARLOW MD Unavailable Unavailable MONAHugh MD Unavailable Unavailable MONAHugh MD Unavailable Unavailable MONAHugh MD Unavailable Unavailable [...] Unavailable MONA, Hugh HOLLIDAY MD Unavailable Unavailable MNOA, Hugh HOLLIDAY MD Unavailable Unavailable MONA, Hugh [...] FERGUSON MD Unavailable Unavailable Martinez, M Trina BRIDGE INSTRUCTOR Unavailable Unavailable Martinez, M Trina BRIDGE INSTRUCTOR Unavailable Unavailable Martinez, M Trina BRIDGE INSTRUCTOR Unavailable Unavailable Martinez, M Trina BRIDGE INSTRUCTOR Unavailable Unavailable Martinez, M Trina BRIDGE INSTRUCTOR Unavailable Unavailable Martinez, M Trina BRIDGE INSTRUCTOR Unavailable Unavailable Martinez, M Trina BRIDGE INSTRUCTOR Unavailable Unavailable Martinez, M Trina BRIDGE INSTRUCTOR Unavailable Unavailable Martinez, M Trina BRIDGE INSTRUCTOR Unavailable Unavailable Martinez, M Trina BRIDGE INSTRUCTOR Unavailable Unavailable Martinez, M Trina BRIDGE INSTRUCTOR Unavailable Unavailable Martinez, M Trina BRIDGE INSTRUCTOR Unavailable Unavailable Martinez, M Trina BRIDGE INSTRUCTOR Unavailable Unavailable Martinez, M Trina BRIDGE INSTRUCTOR Unavailable Unavailable Martinez, M Trina BRIDGE INSTRUCTOR Unavailable Unavailable Martinez, M Trina BRIDGE INSTRUCTOR Unavailable Unavailable Martinez, M Trina BRIDGE INSTRUCTOR Unavailable Unavailable Martinez, M Trina BRIDGE INSTRUCTOR Unavailable Unavailable Martinez, M Trina BRIDGE INSTRUCTOR Unavailable Unavailable Martinez, M Trina BRIDGE INSTRUCTOR Unavailable Unavailable Martinez, M Trina BRIDGE INSTRUCTOR Unavailable Unavailable Martinez, M Trina BRIDGE INSTRUCTOR Unavailable Unavailable Martinez, M Trina BRIDGE INSTRUCTOR Unavailable Unavailable Martinez, M Trina BRIDGE INSTRUCTOR Unavailable Unavailable Martinez, M Trina BRIDGE INSTRUCTOR Unavailable Unavailable Martinez, M Trina BRIDGE INSTRUCTOR Unavailable Unavailable Martinez, M Trina BRIDGE INSTRUCTOR Unavailable Unavailable GRACE, GAYATRI Unavailable Unavailable [place] Robles Unavailable [phone] Travis, [place] Unavailable [phone] Travis, [place] Unavailable [phone] Travis, [place] Unavailable [phone] Travis, [place] Unavailable [phone] TravisJaynaon Unavailable [phone] GILBERG, ALICIA PA Unavailable Unavailable GILBERG, ALICIA [...] is protected by Article 27-F of the [facility] Public Health law. If you continue you may have access to information: Regarding HIV / AIDS; Provided by facilities licensed or operated by the [facility] Office of Mental Health; or Provided by the [facility] Office for People With Developmental Disabilities. If such information is present, then the following [facility] mandated warning applies: This information has [...] law may result in a fine or long-term sentence or both. A general authorization for the release of medical or other information is NOT sufficient authorization for further disc losure. 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 Observation Descr iption Data Source(s) No Directive Type specified PT STATES NO ADVANCE DIRECTIVES completed No Directive Type specified [facility] No Directive Type specified PT STATES NO ADVANCE DIRECTIVES completed No Directive Type specified [facility] Encounters Encounter Providers Location Date Indications Data Source(s ) Outpatient Attender: Selvin JORDAN 01/10/20 08:04:53 AM EDT - 01/09/2021 08:54:21 AM EDT [facility] ([facility] ) Outpatient Attender: [place] Robles 10/18 11:09:22 AM EDT - 10/18/2020 12:01:52 PM EDT [facility] ([facility] ) Outpatient Attender: [facility] 05/09/2020 08:00:00 AM EST [facility] ([facility]) Outpatient Attender: [facility] 04/18/2020 07:00:00 AM EST [facility] ([facility]) Outpatient Attender: ALICIA FOY PAAt tender: PHYLLIS CORDERO MDAdmitter: ALICIA FOY PAConsultant: PHYLLIS CORDERO MDConsultant: ALICIA FOY PAConsultant: GAYATRI GRACE OUTPATIENT-[facility] 04/15/2020 08:01:00 AM EST - 04/15/2020 09:43:00 AM [facility] Patient discharged. Outpatient Attender: ALICIA FOY PAAt tender: PHYLLSI CORDERO MDAdmitter: ALICIA FOY PAConsultant: PHYLLIS CORDERO MDConsultant: ALICIA FOY PA [facility]PAT[facility] 04/03/2020 09:07:00 AM EST - 04/03/2020 09:35:00 AM [facility] Patient discharged. Recurring Patient Attender: Trina Martinez NPReferrer: MG AKERS MD 03/22/2020 10:36:21 AM [facility] [place] Functional Status Immunizations Vaccine Date Status Description Data Source(s) COVID-19 VACCINE Moderna 07/20/2020 12:00:00 AM EDT completed [place]SIIS Vaccine Series Complete: YESThis Data wa s Submitted to [facility] Via [employer]. COVID-19 VACCINE Moderna 06/22/2020 12:00:00 AM EDT completed [place]SIIS Vaccine Series Complete: NOThis Data was Submitted to [facility] Via [employer]. Medications Medication Brand Name Start Date Product [...] relationship to grimes Policy Grimes Plan Information UNINSURED COVID NOTNEEDED Patient is Insured NOTNEEDED MEDICARE BLUE PPO [id number] Patient is Insur ed [id number] [facility] Medicare P [id number] SELF [id number] [facility] MEDICARE BLUE PPO G [id number] Self [id number] [facility] Medicare P [id number] SELF [id number] [employer] BS MEDICARE [id number] Dione [id number] [employer] [facility] MEDICARE [id number] Dione [id number] [employer] MEDICARE [id number] Dione [id number] [employer] Blue Cross and Blue Shield - [facility] Blue Cross/ Blue Shield [id number] Self [id number] [employer] Blue [employer] and Blue [employer] - [place] Blue Cross/B e Shield [id number] Self [id number] [employer] BCBS MEDICARE Medicare [facility] MEDICARE BLUE PPO 306 [id number] SP [id number] SELF PAY ONLY [id number] SP [id number] [employer] BCBS O [id number] S [id number] MEDICARE M [id number] S [id number] A BLUE CROSS O [id number] S [id number] Problems, Conditions, and Diagnoses No Information Surgeries/Procedures Procedure Description Date Indications Data Source(s) RADEX FOOT COMPLETE MINIMUM 3 VIEWS 04/18/2020 12:00:0 0 AM EST [facility] ([facility]) Results ID Date Data Source [id number] 04/20/2020 01:18:04 PM EST [facility] Note status: FINAL (SIGNED)Full name: SIVAKUMAR HUBERate of : 1965Visit ID: [id number] record number: [id number] Care Physician: NONE, NONEAge: 54YSex: MaleRoom [facility] location: [facility] 2Date of service: 04/15/2020 08:12Creation date: 04/15/2020 08:12Attending physician: Carlo CORDERO patient first seen: 08 Informant: PatientHPI Chief Complaint: Left foot painHPI [...] ice Thursday am, left foot pain [YARIEL HUBER 04/15/20 08:11]Past Medical/Surgical HistoryPast medical/surgical history reviewedHome [...] management, x-rays.OrdersStart Date;Description;Frequency;Ordered By;Status04/15/2020;ANKLE COMPLETE LEFT ;Once;ALICIA FOY;Dates Met04/15/2020;FOOT COMPLETE LEFT ;Once;ALICIA FOY;Dates Met04/15/2020;ED-PROVIDE CRUTCHES WITH TRAINING ;Once;ALICIA FOY;Dates MetLaboratoryRadiologyXray results comments: X-ray left foot: Cortical [...] management, crutches for ambulation, orthopedic follow-up.Midlevel signature: Clarke OROSCOlevel signature date: 04/15/2020 09:27Physician signature: Lloyd FOWLER signature date: 04/18/2020 09:09 Name Value Range Interpretation Code Description Data Maryann rce(s) Supporting Document(s) ID Date Data Source [id number] 04/18/2020 08:14:00 AM EST [facility] ([facility]) Name Value Range Interpretation Code Description Data Maryann rce(s) Supporting Document(s) Foot, Complete LT [facility] ID Date Data Source [id number] 04/15/2020 08:39:25 AM EST [facility] 04/15/2020 8:27 AMLEFT FOOT X-RAYSCLINICA [...] Resident's/Fellow'sinterpretation and agree with or edited the findings.[facility] submits Radiology results to [facility] then provides those same results to [facility]. Allresults are available to [facility] and [facility] provider portalusers. [facility] DICOM images are available to [facility] provider portal users only. [facility] DICOMimages are not available to the [facility] provider portal users. There isno current [facility] cross-IO functionality allowing images to be available throughthe [facility] to [facility] connectivity.Interpreted By: Antione Sanders M.D.Electronically signed By: Gayatri Grace M.D., MBA, Luiz By: GAYATRI GRACEDate: 04/15/2020 08:36 Name Value Range Interpretation Code Description Data Maryann rce(s) Supporting Document(s) ID Date Data Source [id number] 04/15/2020 08:37:39 AM EST [facility] 04/15/2020 8:28 AMLEFT ANKLE X-RAYSCLINIC AL INFORMATION: PAIN, UNSPECIFIED, -- PAIN, UNSPECIFIEDCOMPARISON: None.PROCEDURE: AP, lateral, and mortise projections of the left ankle were obtained.IMPRESSION/FINDINGS:Corticated ossific fragment at the tip of the medial malleolus, injury ofchronic nature. No acute osseous abnormality appreciated. No significant anklejoint effusion.END OF IMPRESSIONI have personally reviewed the images and the Resident's/Fellow'sinterpretation and agree with or edited the findings.[facility] submits Radiology results to [facility] then provides those same results to [facility]. Allresults are available to [facility] and [facility] provider portalusers. [facility] DICOM images are available to [facility] provider portal users only. [facility] DICOMimages are not available to the [facility] provider portal users. There isno current [facility] cross-IO functionality allowing images to be available throughthe [facility] to [facility] connectivity.Interpreted By: Isaura Moe MDElectronically signed By: Gayatri Grace M.D., MBA, FACRRead By: GAYATRI GRACEDate: 04/15/2020 08:34 Name Value Range Interpretation Code Description Data Maryann rce(s) Supporting Document(s) ID Date Data Source [id number] 04/05/2020 11:15:16 AM [facility] Note status: FINAL (SIGNED)Full name: SIVAKUMAR HUBERate of : 1965Visit ID: [id number] record number: [id number] Care Physician: NONE, NONEAge: 54YSex: MaleRoom location: [facility] location: [facility] 3Date of service: 04/03/2020 09:36Creation date: 04/03/2020 [...] testingOrdersStart Date;Description;Frequency;Ordered By;Status04/03/2020;COVID-19, Nucleic Acid Amplification PCR [Nielsen IDNOW] ;Once;PHYLLIS CORDERO;Dates MetLaboratoryRadiologyEKG/Rhythm Strip InterpretationDiagnosis: Viral syndromeDisposition time: 929 Condition: UnchangedDischarge plan: Quarantine, follow labs, pzcw-[id number] remedies for symptoms as needed.Midlevel signature: Sherlyn OROSCO signature date: 04/03/2020 09:38Physician signature: Lloyd FOWLER signature date: 04/05/2020 11:13 Name Value Range Interpretation Code Description Data Maryann rce(s) Supporting Document(s) ID Date Data Source [id number] 04/05/2020 11:15:14 AM [facility] Note status: FINAL (SIGNED)Patient name: Reji NARANJO of : 1965Visit ID: [id number] record number: [id number]: 54YSex: MaleRoom location: [facility] location: [facility] 3Date of service: 04/03/2020 15:10Creation date: 04/03/2020 15:10Created by: ALICIA [facility]_Care_Physician: NONE, NONEProgress: Spoke with patient, identified with 2 forms of identification, notified him of a COVID-19 negative test result.Midlevel signature: Sherlyn OROSCO signature date: 04/03/2020 15:10Physician signature: Lloyd FOWLER signature date: 04/05/2020 11:13 Name Value Range Interpretation Code Description Data Maryann rce(s) Supporting Document(s) ID Date Data Source [id number] 04/03/2020 09:24:00 AM EST [facility] Name Value Range Interpretation Code Description Data Maryann rce(s) Supporting Document(s) SARS-CoV-2 RdRp gene Resp Ql DHARMESH+probe Negative [facility] This lab was ordered by [facility] and reported by [facility]. ID Date Data Source [id number] 04/03/2020 01:04:00 PM EST [facility] Name Value Range Interpretation Code Description Data Maryann rce(s) Supporting Document(s) COVID-19, PCR NEGATIVE NEGATIVE [facility] Negative results do not preclude SARS-Co V-2 infection and should not be used as the sole basis for patient management decisions.Testing was performed using the [employer] NOW COVID-19 test. This test has been authorized by FDA under an Emergency Use Authorization (EUA). Procedure Social History No Information Vital Signs ID Date Data Source UNK Name Value Range Interpretation Code Description Data Source(s) Body weight 175.00 [lb_av] 175.00 [lb_av] [facility] ([facility]) reported Body weight 79.380 kg 79.380 kg [facility] ([facility]) Body height 70 [in_i] 70 [in_i] [facility] ([facility]) 5'10" Body height 177.8 cm 177.8 cm [facility] ([facility]) Body mass index (BMI) [Ratio] 25.1 kg/m2 25.1 k g/m2 [facility] ([facility]) Heart rate 90 /min 90 /min [facility] ([facility]) Body temperature 97.7 [degF] 97.7 [degF] [facility] ([facility]) Oxygen saturation in Arterial blood by Pulse oximetry 98 % 98 % [facility] ([facility]) Respiratory rate 16 /min 16 /min [facility] ( [facility]) Oxygen saturation in Arterial blood by Pulse oximetry 98 % 98 % [facility] ([facility]) Respiratory rate 14 /min 14 /min [facility] ( [facility]) Body height 70 [in_i] 70 [in_i] [facility] ([facility]) 5'10" Body height 177.8 cm 177.8 cm [facility] ([facility]) Body mass index (BMI) [Ratio] 25.1 kg/m2 25.1 k g/m2 [facility] ([facility]) Heart rate 81 /min 81 /min [facility] ([facility]) Body temperature 97.4 [degF] 97.4 [degF] [facility] ([facility]) Body weight 175.00 [lb_av] 175.00 [lb_av] [facility] ([facility]) Body weight 79.380 kg 79.380 kg [facility] ([facility]) ID Date Data Source [id number] 04/20/2020 01:18:04 PM EST [facility] Name Value Range Interpretation Code Description Data Source(s) WEIGHT RECORDED 80 KG 80 KG [facility] Height 1803.4 CM 1803.4 CM [facility] ID Date Data Source [id number] 04/05/2020 07:53:39 PM EST [facility] Name Value Range Interpretation Code Description Data Source(s) WEIGHT RECORDED 79 KG 79 KG [facility] Height 177.8 CM 177.8 CM [facility]
[2021-01-16] MEDS ORDERED: ACETAMINOPHEN 500 MG TAB PO ONE (07:40)
[2021-01-16] MEDS ORDERED: KETOROLAC 30 MG/ML 1ML VIAL IV ONE ×2 (07:40→09:20)
[2021-01-16 07:47] LABS: VENOUS BASE EXCESS 4.4 (-2.0-2.0); VENOUS HCO3 26.3 MEQ/L (23.0-27.0); VENOUS O2 SATURATION 98.3 % (60.0-80.0); VENOUS PARTIAL PRESSURE CO2 30.3 mmHg (38.0-50.0); VENOUS PARTIAL PRESSURE O2 113.8 mmHg (30.0-50.0); VENOUS PH 7.556 UNITS (7.330-7.430); VENOUS STANDARD HCO3 28.4 MEQ/L; VENOUS TOTAL CO2 27.2 MEQ/L (24.0-28.0)
[2021-01-16 07:48] LABS: HEMATOCRIT 28.6 % (42.0-52.0); MEAN CORPUSCULAR HEMOGLOBIN 29.7 pg (27.0-33.0); MEAN CORPUSCULAR VOLUME 84.9 fl (80.0-96.0); RED BLOOD COUNT 3.37 10^6/uL (4.30-6.10)
[2021-01-16 08:17] LABS: ALBUMIN 1.5 GM/DL (3.2-5.2); ALT/SGPT 41 U/L (12-78); BILIRUBIN,DIRECT 0.8 MG/DL (0.0-0.2); BILIRUBIN,TOTAL 1.1 MG/DL (0.2-1.0); BLOOD UREA NITROGEN 24 MG/DL (7-18); CALCIUM LEVEL 7.1 MG/DL (8.5-10.1); CARBON DIOXIDE LEVEL 29 MEQ/L (21-32); CHLORIDE LEVEL 89 MEQ/L (98-107); CK-MB VALUE MASS 1.2 NG/ML (<3.6); CPK CREATINE PHOSPHOKINASE 102 U/L (39-308); CREATININE FOR GFR 0.93 MG/DL (0.70-1.30); GLOMERULAR FILTRATION RATE > 60.0 (>56); GLUCOSE, FASTING 131 MG/DL (70-100); MB/CK RELATIVE INDEX 1.18 (< OR =4); POTASSIUM SERUM 3.5 MEQ/L (3.5-5.1); SODIUM LEVEL 123 MEQ/L (136-145); TOTAL PROTEIN 5.2 GM/DL (6.4-8.2); TROPONIN I < 0.02 NG/ML (< 0.10)
--- NOTE | 2021-01-16 08:24 | REP ---
INDICATION: DYSPNEA/COUGH. COMPARISON: 01/10/2021. TECHNIQUE: Single portable AP view of the chest was performed. FINDINGS: There is probable mild infiltrate laterally in the right lung base. Left lung appears clear. The heart and mediastinum are unremarkable and unchanged. IMPRESSION: Probable infiltrate lateral right lung base. <Electronically signed by Shreyas Mchugh > 01/16/21 0801
[2021-01-16] MEDS ORDERED: AZITHROMYCIN INJ 500 MG, VIAL MATE ADAPTER 1 EACH in NS 250 ML IV ONE (08:45)
[2021-01-16] MEDS ORDERED: cefTRIAXone SOD 1 GM in D5W MINI-BAG PLUS 50 ML IV ONE (08:45)
[2021-01-16 08:51] LABS: RSV AMPLIFICATION NEGATIVE (NEGATIVE)
[2021-01-16 08:52] LABS: LYMPHOCYTES 1 % (16-44); NEUTROPHILS 78 % (28-66); PLATELET CLUMPS LARGE AMT; PLATELET ESTIMATE INVALID (NORMAL)
[2021-01-16] MEDS ORDERED: ENOXAPARIN 40MG/0.4ML SYRINGE (J1650 PER 10MG) SC SCH (09:00)
[2021-01-16] MEDS: NS 1,000 ML IV SCH ×2 (09:32→13:44)
[2021-01-16] MEDS ORDERED: KETOROLAC 30 MG/ML 1ML VIAL IV PRN (09:55)
--- OUTSIDE RECORDS SUMMARY | 2021-01-16 10:12 | CCD ---
Author Author [facility] Organization [facility] Address Unknown Phone Unavailable Care Team Providers Care Clinical Lab Clerk Name Role Phone Maring, Selvin PA Unavailable [...] Unavailable Unavailable Maring, Selvin PA Unavailable Unavailable Tallerico, D Wilbert DO Unavailable [...] Unavailable CONSUELO, Deanna FERGUSON MD Unavailable Unavailable MONA, Hugh HOLLIDAY MD [...] Unavailable MONA, Hugh HOLLIDAY MD Unavailable Unavailable MOAN, Hugh HOLLIDAY MD Unavailable Unavailable MONA, Hugh HOLLIDAY MD Unavailable Unavailable Martinez, M Trina INTAKE RN Unavailable Unavailable Martinez, M Trina INTAKE RN Unavailable Unavailable Martinez, M Trina INTAKE RN Unavailable Unavailable Martinez, M Trina INTAKE RN Unavailable Unavailable Martinez, M Trina INTAKE RN Unavailable Unavailable Martinez, M Trina INTAKE RN Unavailable Unavailable Martinez, M Trina INTAKE RN Unavailable Unavailable Martinez, M Trina INTAKE RN Unavailable Unavailable Martinez, M Trina INTAKE RN Unavailable Unavailable Martinez, M Trina INTAKE RN Unavailable Unavailable Martinez, M Trina INTAKE RN Unavailable Unavailable Martinez, M Trina INTAKE RN Unavailable Unavailable Martinez, M Trina INTAKE RN Unavailable Unavailable Martinez, M Trina INTAKE RN Unavailable Unavailable Martinez, M Trina INTAKE RN Unavailable Unavailable Martinez, M Trina INTAKE RN Unavailable Unavailable Martinez, M Trina INTAKE RN Unavailable Unavailable Martinez, M Trina INTAKE RN Unavailable Unavailable Martinez, M Trina INTAKE RN Unavailable Unavailable Martinez, M Trina INTAKE RN Unavailable Unavailable Martinez, M Trina INTAKE RN Unavailable Unavailable Martinez, M Trina INTAKE RN Unavailable Unavailable Martinez, M Trina INTAKE RN Unavailable Unavailable Martinez, M Trina INTAKE RN Unavailable Unavailable Martinez, M Trina INTAKE RN Unavailable Unavailable Martinez, M Trina INTAKE RN Unavailable Unavailable Martinez, M Trina INTAKE RN Unavailable Unavailable GRACE, GAYATRI Unavailable Unavailable [place] Robles Unavailable [phone] Travis, [place] Unavailable [phone] Travis, [place] Unavailable [phone] Travis, [place] Unavailable [phone] Travis, [place] Unavailable [phone] TravisJaynaon Unavailable [phone] GILBERG, ALICIA PA Unavailable Unavailable GILBERG, ALICIA [...] is protected by Article 27-F of the [facility] Public Health law. If you continue you may have access to information: Regarding HIV / AIDS; Provided by facilities licensed or operated by the [facility] Office of Mental Health; or Provided by the [facility] Office for People With Developmental Disabilities. If such information is present, then the following [facility] mandated warning applies: This information has been [...] law may result in a fine or correction sentence or both. A general authorization for the release of medical or other information is NOT sufficient authorization for further disc losure. 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 Status Observation Descr iption Data Source(s) No Directive Type specified PT STATES NO ADVANCE DIRECTIVES completed No Directive Type specified [facility] No Directive Type specified PT STATES NO ADVANCE DIRECTIVES completed No Directive Type specified [facility] Encounters Encounter Providers Location Date Indications Data Source(s ) Outpatient Attender: Selvin JORDAN 01/10/20 08:04:53 AM EDT - 01/09/2021 08:54:21 AM EDT [facility] ([facility] ) Outpatient Attender: [place] Robles 10/18 11:09:22 AM EDT - 10/18/2020 12:01:52 PM EDT [facility] ([facility] ) Outpatient Attender: [facility] 05/09/2020 08:00:00 AM EST [facility] ([facility]) Outpatient Attender: [facility] 04/18/2020 07:00:00 AM EST [facility] ([facility]) Outpatient Attender: ALICIA FOY PAAt tender: PHYLLIS CORDERO MDAdmitter: ALICIA FOY PAConsultant: PHYLLIS CORDERO MDConsultant: ALICIA FOY PAConsultant: GAYATRI GRACE [facility] 04/15/2020 08:01:00 AM EST - 04/15/2020 09:43:00 AM [facility] Patient discharged. Outpatient Attender: ALICIA FOY PAAt tender: PHYLLIS CORDERO MDAdmitter: ALICIA FOY PAConsultant: PHYLLIS CORDERO MDConsultant: ALICIA FOY PA OUTPATIENT-[facility] 04/03/2020 09:07:00 AM EST - 04/03/2020 09:35:00 AM [facility] Patient discharged. Recurring Patient Attender: Trina Martinez NPReferrer: MG AKERS MD 03/22/2020 10:36:21 AM [facility] [place] Functional Status Immunizations Vaccine Date Status Description Data Source(s) COVID-19 VACCINE Moderna 07/20/2020 12:00:00 AM EDT completed [facility] Vaccine Series Complete: YESThis Data wa s Submitted to [facility]. COVID-19 VACCINE Moderna 06/22/2020 12:00:00 AM EDT completed [facility] Vaccine Series Complete: NOThis Data was Submitted to [facility]. Medications Medication Brand Name Start Date Product [...] type / Coverage type Policy ID Covered constitution party ID Covered constitution party's relationship to grimes Policy Grimes Plan Information UNINSURED COVID NOTNEEDED Patient is Insured NOTNEEDED MEDICARE BLUE PPO [id number] Patient is Insur ed [id number] [facility] Medicare P [id number] SELF [id number] [facility] MEDICARE BLUE PPO G [id number] Self [id number] [facility] Medicare P [id number] SELF [id number] EXCELLUS BS MEDICARE [id number] Dione [id number] EXCELLUS [facility] MEDICARE [id number] Dione [id number] EXCELLUS BCBS MEDICARE [id number] Dione [id number] [employer] Blue Cross and Blue Shield - [facility] Blue Cross/ Blue Shield [id number] Self [id number] [employer] Blue Cross and Blue Shield - [place] Blue Cross/B e Shield [id number] Self [id number] EXCELL[employer] BCBS MEDICARE Medicare [facility] MEDICARE BLUE PPO [id number] SP [id number] SELF PAY ONLY [id number] SP [id number] EXCELLUS BCBS O [id number] S [id number] MEDICARE M [id number] S [id number] A BLUE CROSS O [id number] S [id number] Problems, Conditions, and Diagnoses No Information Surgeries/Procedures Procedure Description Date Indications Data Source(s) RADEX FOOT COMPLETE MINIMUM 3 VIEWS 04/18/2020 12:00:0 0 AM EST [facility] ([facility]) Results ID Date Data Source [id number] 04/20/2020 01:18:04 PM EST [facility] Note status: FINAL (SIGNED)Full name: SIVAKUMAR HUBERate of : 1965Visit ID: [id number] record number: [id number] Care Physician: NONE, NONEAge: 54YSex: Male[facility] 2Date of service: 04/15/2020 08:12Creation date: [...] rce(s) Supporting Document(s) ID Date Data Source [id number] 04/18/2020 08:14:00 AM EST [facility] ([facility]) Name Value Range Interpretation Code Description Data Maryann rce(s) Supporting Document(s) Foot, Complete LT Laboratory test result [facility]) ID Date Data Source [id number] 04/15/2020 08:39:25 AM EST [facility] [...] and agree with or edited the findings.[facility] submits Radiology results to [facility] then provides those same results to [facility]. Allresults are available to [facility] and [facility] provider portalusers. [facility] DICOM images are available to [facility] provider portal users only. [facility] DICOMimages are not available to the [facility] provider portal users. There isno current [facility] cross-IO functionality allowing images to be available throughthe [facility] to [facility] connectivity.Interpreted By: Antione Sanders M.D.Electronically signed By: Gayatri Grace M.D., MBA, Luiz By: GAYATRI GRACEDate: 04/15/2020 08:36 Name Value Range Interpretation Code Description Data Maryann rce(s) Supporting Document(s) ID Date Data Source [id number] 04/15/2020 08:37:39 AM EST [facility] 04/15/2020 8:28 AMLEFT ANKLE X-RAYSCLINIC [...] and agree with or edited the findings.[facility] submits Radiology results to [facility] then provides those same results to [facility]. Allresults are available to [facility] and [facility] provider portalusers. [facility] DICOM images are available to [facility] provider portal users only. [facility] DICOMimages are not available to the [facility] provider portal users. There isno current [facility] cross-IO functionality allowing images to be available throughthe [facility] to [facility] connectivity.Interpreted By: Isaura Moe MDElectronically signed By: Gayatri Grace M.D., MBA, FACRRead By: GAYATRI GRACEDate: 04/15/2020 08:34 Name Value Range Interpretation Code Description Data Maryann rce(s) Supporting Document(s) ID Date Data Source [id number] 04/05/2020 11:15:16 AM [facility] Note status: FINAL (SIGNED)Full name: SIVAKUMAR HUBERate of : 1965Visit ID: [id number] record number: [id number] Care Physician: NONE, NONEAge: 54YSex: MaleRoom [facility] location[facility] 3Date of service: 04/03/2020 09:36Creation date: [...] 929 Condition: UnchangedDischarge plan: Quarantine, follow labs, [id number] remedies for symptoms as needed.Midlevel signature: Sherlyn OROSCO signature date: 04/03/2020 09:38Physician signature: Lloyd FOWLER signature date: 04/05/2020 11:13 Name Value Range Interpretation Code Description Data Maryann rce(s) Supporting Document(s) ID Date Data Source [id number] 04/05/2020 11:15:14 AM [facility] Note status: FINAL (SIGNED)Patient name: Reji NARANJO of : 1965Visit ID: [id number] record number: [id number]: 54YSex: MaleRoom location: [facility] location: [facility] 3Date of service: 04/03/2020 15:10Creation date: 04/03/2020 15:10Created by: ALICIA [facility]_Care_Physician: NONE, NONEProgress: Spoke with patient, identified with 2 forms of identification, notified him of a COVID-19 negative test result.Midlevel signature: Sherlyn OROSCO signature date: 04/03/2020 15:10Physician signature: Lloyd FOWLER signature date: 04/05/2020 11:13 Name Value Range Interpretation Code Description Data Maryann rce(s) Supporting Document(s) ID Date Data Source [id number] 04/03/2020 09:24:00 AM EST [facility] Name Value Range Interpretation Code Description Data Maryann rce(s) Supporting Document(s) SARS-CoV-2 RdRp gene Resp Ql DHARMESH+probe Negative [facility] This lab was ordered by [facility] and reported by [place]. ID Date Data Source [id number] 04/03/2020 01:04:00 PM EST [facility] Name Value Range Interpretation Code Description Data Maryann rce(s) Supporting Document(s) COVID-19, PCR NEGATIVE NEGATIVE [facility] Negative results do not preclude SARS-Co V-2 infection and should not be used as the sole basis for patient management decisions.Testing was performed using the [employer] NOW COVID-19 test. This test has been authorized by FDA under an Emergency Use Authorization (EUA). Procedure Social History No Information Vital Signs ID Date Data Source UNK Name Value Range Interpretation Code Description Data Source(s) Body weight 175.00 [lb_av] 175.00 [lb_av] [facility] ([facility]) reported Body weight 79.380 kg 79.380 kg [facility] ([facility]) Body height 70 [in_i] 70 [in_i] [facility] ([facility]) 5'10" Body height 177.8 cm 177.8 cm [facility] ([facility]) Body mass index (BMI) [Ratio] 25.1 kg/m2 25.1 k g/m2 [facility] ([facility]) Heart rate 90 /min 90 /min [facility] ([facility]) Body temperature 97.7 [degF] 97.7 [degF] [facility] ([facility]) Oxygen saturation in Arterial blood by Pulse oximetry 98 % 98 % [facility] ([facility]) Respiratory rate 16 /min 16 /min [facility] ( [facility]) Oxygen saturation in Arterial blood by Pulse oximetry 98 % 98 % [facility] ([facility]) Respiratory rate 14 /min 14 /min [facility] ( [facility]) Body height 70 [in_i] 70 [in_i] [facility] ([facility]) 5'10" Body height 177.8 cm 177.8 cm [facility] ([facility]) Body mass index (BMI) [Ratio] 25.1 kg/m2 25.1 k g/m2 [facility] ([facility]) Heart rate 81 /min 81 /min [facility] ([facility]) Body temperature 97.4 [degF] 97.4 [degF] [facility] ([facility]) Body weight 175.00 [lb_av] 175.00 [lb_av] [facility] ([facility]) Body weight 79.380 kg 79.380 kg [facility] ([facility]) ID Date Data Source [id number] 04/20/2020 01:18:04 PM EST [facility] Name Value Range Interpretation Code Description Data Source(s) WEIGHT RECORDED 80 KG 80 KG [facility] Height 1803.4 CM 1803.4 CM [facility] ID Date Data Source [id number] 04/05/2020 07:53:39 PM EST [facility] Name Value Range Interpretation Code Description Data Source(s) WEIGHT RECORDED 79 KG 79 KG [facility] Height 177.8 CM 177.8 CM [facility]
--- OUTSIDE RECORDS SUMMARY | 2021-01-16 10:13 | CCD ---
Author Author [facility] Organization [facility] Address Unknown Phone Unavailable Care Team Providers Care Paleology Teacher Name Role Phone Maring, Selvin PA Unavailable [...] HOLLIDAY MD Unavailable Unavailable Martinez, M Trina VEHICLE DAMAGE APPRAISER Unavailable Unavailable Martinez, M Trina VEHICLE DAMAGE APPRAISER Unavailable Unavailable Martinez, M Trina VEHICLE DAMAGE APPRAISER Unavailable Unavailable Martinez, M Trina VEHICLE DAMAGE APPRAISER Unavailable Unavailable Martinez, M Trina VEHICLE DAMAGE APPRAISER Unavailable Unavailable Martinez, M Trina VEHICLE DAMAGE APPRAISER Unavailable Unavailable Martinez, M Trina VEHICLE DAMAGE APPRAISER Unavailable Unavailable Martinez, M Trina VEHICLE DAMAGE APPRAISER Unavailable Unavailable Martinez, M Trina VEHICLE DAMAGE APPRAISER Unavailable Unavailable Martinez, M Trina VEHICLE DAMAGE APPRAISER Unavailable Unavailable Martinez, M Trina VEHICLE DAMAGE APPRAISER Unavailable Unavailable Martinez, M Trina VEHICLE DAMAGE APPRAISER Unavailable Unavailable Martinez, M Trina VEHICLE DAMAGE APPRAISER Unavailable Unavailable Martinez, M Trina VEHICLE DAMAGE APPRAISER Unavailable Unavailable Martinez, M Trina VEHICLE DAMAGE APPRAISER Unavailable Unavailable Martinez, M Trina VEHICLE DAMAGE APPRAISER Unavailable Unavailable Martinez, M Trina VEHICLE DAMAGE APPRAISER Unavailable Unavailable Martinez, M Trina VEHICLE DAMAGE APPRAISER Unavailable Unavailable Martinez, M Trina VEHICLE DAMAGE APPRAISER Unavailable Unavailable Martinez, M Trina VEHICLE DAMAGE APPRAISER Unavailable Unavailable Martinez, M Trina VEHICLE DAMAGE APPRAISER Unavailable Unavailable Martinez, M Trina VEHICLE DAMAGE APPRAISER Unavailable Unavailable Martinez, M Trina VEHICLE DAMAGE APPRAISER Unavailable Unavailable Martinez, M Trina VEHICLE DAMAGE APPRAISER Unavailable Unavailable Martinez, M Trina VEHICLE DAMAGE APPRAISER Unavailable Unavailable Martinez, M Trina VEHICLE DAMAGE APPRAISER Unavailable Unavailable Martinez, M Trina VEHICLE DAMAGE APPRAISER Unavailable Unavailable GRACE, GAYATRI Unavailable Unavailable [place] Robles Unavailable [phone] Travis, [place] Unavailable [phone] Travis, [place] Unavailable [phone] Travis, [place] Unavailable [phone] Travis, [place] Unavailable [phone] TravisJaynaon Unavailable [phone] GILBERG, ALICIA PA Unavailable Unavailable GILBERG, ALICIA [...] is protected by Article 27-F of the [facility] Public Health law. If you continue you may have access to information: Regarding HIV / AIDS; Provided by facilities licensed or operated by the [facility] Office of Mental Health; or Provided by the [facility] Office for People With Developmental Disabilities. If such information is present, then the following [facility] mandated warning applies: This information has [...] law may result in a fine or half-way sentence or both. A general authorization for the release of medical or other information is NOT sufficient authorization for further disc losure. Advance Directives Directive Description Contract Manager Director Of Cath Lab Status Observation Descr iption Data Source(s) No Directive Type specified PT STATES NO ADVANCE DIRECTIVES completed No Directive Type specified [facility] No Directive Type specified PT STATES NO ADVANCE DIRECTIVES completed No Directive Type specified [facility] Encounters Encounter Providers Location Date Indications Data Source(s ) Outpatient Attender: Selvin JORDAN 01/10/20 08:04:53 AM EDT - 01/09/2021 08:54:21 AM EDT [facility] ([facility] ) Outpatient Attender: [place] Robles 10/18 11:09:22 AM EDT - 10/18/2020 12:01:52 PM EDT [facility] ([facility] ) Outpatient Attender: [facility] 05/09/2020 08:00:00 AM EST [facility] ([facility]) Outpatient Attender: [facility] 04/18/2020 07:00:00 AM EST [facility] ([facility]) Outpatient Attender: ALICIA FOY PAAt tender: PHYLLIS CORDERO MDAdmitter: ALICIA FOY PAConsultant: PHYLLIS CORDERO MDConsultant: ALICIA FOY PAConsultant: GAYATRI GRACE [facility] 04/15/2020 08:01:00 AM EST - 04/15/2020 09:43:00 AM [facility] Patient discharged. Outpatient Attender: ALICIA FOY PAAt tender: PHYLLIS CORDERO MDAdmitter: ALICIA FOY PAConsultant: PHYLLIS CORDERO MDConsultant: ALICIA FOY PA [facility] 04/03/2020 09:07:00 AM EST - 04/03/2020 09:35:00 AM [facility] Patient discharged. Recurring Patient Attender: Trina Martinez NPReferrer: MG AKERS MD 03/22/2020 10:36:21 AM [facility] [place] Functional Status Immunizations Vaccine Date Status Description Data Source(s) COVID-19 VACCINE Moderna 07/20/2020 12:00:00 AM EDT completed [facility] Vaccine Series Complete: YESThis Data wa s Submitted to [facility] Via [employer]. COVID-19 VACCINE Moderna 06/22/2020 12:00:00 AM EDT completed [facility] Vaccine Series Complete: NOThis Data was Submitted to [facility] [employer]. Medications Medication Brand Name Start Date Product [...] Patient is Insured NOTNEEDED MEDICARE BLUE PPO [id number] Patient is Insur ed [id number] [facility] Medicare P [id number] SELF [id number] [facility] MEDICARE BLUE PPO G [id number] Self [id number] [facility] Medicare P [id number] SELF [id number] [employer] MEDICARE [id number] Dione [id number] [facility] MEDICARE [id number] Dione [id number] [employer] MEDICARE [id number] Dione [id number] [employer] Blue [employer] and Blue Shield - [facility] Blue Cross/ Blue Shield [id number] Self [id number] [employer] Blue [employer] and Blue [employer] - [place] Blue Cross/B e Shield [id number] Self [id number] [employer] BCBS MEDICARE Medicare [facility] MEDICARE BLUE PPO 306 [id number] SP [id number] SELF PAY ONLY [id number] SP [id number] [employer] BCBS O [id number] S [id number] MEDICARE M [id number] S [id number] A BLUE CROSS O [id number] S [id number] Problems, Conditions, and Diagnoses No Information Surgeries/Procedures Procedure Description Date Indications Data Source(s) RADEX FOOT COMPLETE MINIMUM 3 VIEWS 04/18/2020 12:00:0 0 AM EST [facility] ([facility]) Results ID Date Data Source [id number] 04/20/2020 01:18:[address] [facility] Note status: FINAL (SIGNED)Full name: SIVAKUMAR HUBERate of : 1965Visit ID: [id number] record number: [id number] Care Physician: NONE, NONEAge: 54YSex: Male[facility] 2Date of service: 04/15/2020 08:12Creation date: [...] rce(s) Supporting Document(s) ID Date Data Source [id number] 04/18/2020 08:14:00 AM EST [facility] ([facility]) Name Value Range Interpretation Code Description Data Maryann rce(s) Supporting Document(s) Foot, Complete LT Laboratory test result [facility]) ID Date Data Source [id number] 04/15/2020 08:39:25 AM EST [facility] [...] Resident's/Fellow'sinterpretation and agree with or edited the findings.[facility] submits Radiology results to [facility] then provides those same results to [facility]. Allresults are available to [facility] and [facility] provider portalusers. [facility] DICOM images are available to [facility] provider portal users only. [facility] DICOMimages are not available to the [facility] provider portal users. There isno current [facility] cross-IO functionality allowing images to be available throughthe [facility] to [facility] connectivity.Interpreted By: Antione Sanders M.D.Electronically signed By: Gayatri Grace M.D., MBA, Luiz By: GAYATRI GRACEDate: 04/15/2020 08:36 Name Value Range Interpretation Code Description Data Maryann rce(s) Supporting Document(s) ID Date Data Source [id number] 04/15/2020 08:37:[address] [facility] 04/15/2020 8:28 AMLEFT ANKLE X-RAYSCLINIC AL INFORMATION: PAIN, UNSPECIFIED, -- PAIN, UNSPECIFIEDCOMPARISON: None.PROCEDURE: AP, lateral, and mortise projections of the left ankle were obtained.IMPRESSION/FINDINGS:Corticated ossific fragment at the tip of the medial malleolus, injury ofchronic nature. No acute osseous abnormality appreciated. No significant anklejoint effusion.END OF IMPRESSIONI have personally reviewed the images and the Resident's/Fellow'sinterpretation and agree with or edited the findings.[facility] submits Radiology results to [facility] then provides those same results to [facility]. Allresults are available to [facility] and [facility] provider portalusers. [facility] DICOM images are available to [facility] provider portal users only. [facility] DICOMimages are not available to the [facility] provider portal users. There isno current [facility] cross-IO functionality allowing images to be available throughthe [facility] to [facility] connectivity.Interpreted By: Isaura Moe MDElectronically signed By: Gayatri Grace M.D., MBA, FACRRead By: GAYATRI GRACEDate: 04/15/2020 08:34 Name Value Range Interpretation Code Description Data Maryann rce(s) Supporting Document(s) ID Date Data Source [id number] 04/05/2020 11:15:16 AM [facility] Note status: FINAL (SIGNED)Full name: SIVAKUMAR HUBERate of : 1965Visit ID: [id number] record number: [id number] Care Physician: NONE, NONEAge: 54YSex: MaleRoom [facility] 3Date of service: 04/03/2020 09:36Creation date: [...] 929 Condition: UnchangedDischarge plan: Quarantine, follow labs, [id number]-[id number] remedies for symptoms as needed.Midlevel signature: Sherlyn OROSCO signature date: 04/03/2020 09:38Physician signature: Lloyd FOWLER signature date: 04/05/2020 11:13 Name Value Range Interpretation Code Description Data Maryann rce(s) Supporting Document(s) ID Date Data Source [id number] 04/05/2020 11:15:14 AM [facility] Note status: FINAL (SIGNED)Patient name: Reji NARANJO of : 1965Visit ID: [id number] record number: [id number]: 54YSex: MaleRoom [facility] location[facility] 3Date of service: 04/03/2020 15:10Creation date: 04/03/2020 15:10Created by: ALICIA FOYLifepoint Hospitals_Care_Physician: NONE, NONEProgress: Spoke with patient, identified with 2 forms of identification, notified him of a COVID-19 negative test result.Midlevel signature: Sherlyn OROSCO signature date: 04/03/2020 15:10Physician signature: Lloyd FOWLER signature date: 04/05/2020 11:13 Name Value Range Interpretation Code Description Data Maryann rce(s) Supporting Document(s) ID Date Data Source [id number] 04/03/2020 09:24:00 AM EST [facility] Name Value Range Interpretation Code Description Data Maryann rce(s) Supporting Document(s) SARS-CoV-2 RdRp gene Resp Ql DHARMESH+probe Negative [facility] This lab was ordered by [facility] and reported by [facility]. ID Date Data Source [id number] 04/03/2020 01:04:[address] [facility] Name Value Range Interpretation Code Description Data Maryann rce(s) Supporting Document(s) COVID-19, PCR NEGATIVE NEGATIVE [facility] Negative results do not preclude SARS-Co V-2 infection and should not be used as the sole basis for patient management decisions.Testing was performed using the [employer] COVID-19 test. This test has been authorized by FDA under an Emergency Use Authorization (EUA). Procedure Social History No Information Vital Signs ID Date Data Source UNK Name Value Range Interpretation Code Description Data Source(s) Body weight 175.00 [lb_av] 175.00 [lb_av] [facility] ([facility]) reported Body weight 79.380 kg 79.380 kg [facility] ([facility]) Body height 70 [in_i] 70 [in_i] [facility] ([facility]) 5'10" Body height 177.8 cm 177.8 cm [facility] ([facility]) Body mass index (BMI) [Ratio] 25.1 kg/m2 25.1 k g/m2 [facility] ([facility]) Heart rate 90 /min 90 /min [facility] ([facility]) Body temperature 97.7 [degF] 97.7 [degF] [facility] ([facility]) Oxygen saturation in Arterial blood by Pulse oximetry 98 % 98 % [facility] ([facility]) Respiratory rate 16 /min 16 /min [facility] ( [facility]) Oxygen saturation in Arterial blood by Pulse oximetry 98 % 98 % [facility] ([facility]) Respiratory rate 14 /min 14 /min [facility] ( [facility]) Body height 70 [in_i] 70 [in_i] [facility] ([facility]) 5'10" Body height 177.8 cm 177.8 cm [facility] ([facility]) Body mass index (BMI) [Ratio] 25.1 kg/m2 25.1 k g/m2 [facility] ([facility]) Heart rate 81 /min 81 /min [facility] ([facility]) Body temperature 97.4 [degF] 97.4 [degF] [facility] ([facility]) Body weight 175.00 [lb_av] 175.00 [lb_av] [facility] ([facility]) Body weight 79.380 kg 79.380 kg [facility] ([facility]) ID Date Data Source [id number] 04/20/2020 01:18:[address] [facility] Name Value Range Interpretation Code Description Data Source(s) WEIGHT RECORDED [address] [facility] Height 1803.[address] [facility] ID Date Data Source [id number] 04/05/2020 07:53:39 PM EST [facility] Name Value Range Interpretation Code Description Data Source(s) WEIGHT RECORDED 79 KG 79 KG [facility] Height 177.[address] [facility]
[2021-01-16 10:56] VITALS: BP 115/63
[2021-01-16] MEDS: ACETAMINOPHEN TAB 650MG DOSE (2X325MG) PO PRN (11:21)
[2021-01-16 11:24] VITALS: O2SAT 92
[2021-01-16 11:29] LABS: FREE T4 1.33 NG/DL (0.76-1.46); THYROID STIMULATING HORMONE 1.52 uIU/ML (0.358-3.740)
[2021-01-16] MEDS ORDERED: HOME MED LIST COMPLETE! XX SCH (11:30)
[2021-01-16] MEDS ORDERED: PERCOCET 5MG/325MG TAB PO ONE (12:15)
[2021-01-16 14:00] VITALS: BP 107/53
[2021-01-16 14:41] LABS: HEMOGLOBIN 9.3 g/dl (13.5-17.5); MEAN CORPUSCULAR HEMOGLOBIN 30.3 pg (27.0-33.0); MEAN CORPUSCULAR HGB CONC 34.4 g/dl (32.0-36.5); MEAN CORPUSCULAR VOLUME 87.9 fl (80.0-96.0); RED BLOOD COUNT 3.07 10^6/uL (4.30-6.10); WHITE BLOOD COUNT 10.5 10^3/uL (4.0-10.0)
[2021-01-16 14:53] LABS: BLOOD UREA NITROGEN 32 MG/DL (7-18); CARBON DIOXIDE LEVEL 27 MEQ/L (21-32); CHLORIDE LEVEL 95 MEQ/L (98-107); CREATININE FOR GFR 1.06 MG/DL (0.70-1.30); GLOMERULAR FILTRATION RATE > 60.0 (>56); GLUCOSE, FASTING 134 MG/DL (70-100); POTASSIUM SERUM 3.7 MEQ/L (3.5-5.1); SODIUM LEVEL 128 MEQ/L (136-145)
[2021-01-16 15:05] LABS: OSMOLALITY URINE 421 MOSM/KG (50-1400)
[2021-01-16 15:15] LABS: PLATELET COUNT, AUTOMATED 75 10^3/uL (150-450)
[2021-01-16 15:20] LABS: SODIUM,RANDOM URINE < 10 MEQ/L
--- NOTE | 2021-01-16 15:50 | HPEPDOC ---
[facility] Medical History & Physical Date of Admission Jan 16, 2021 Date of Service: Jan 16, 2021 Attending Physician: SURAJ CAMPBELL DO History and Physical CHIEF COMPLAINT: Feeling sick HISTORY OF PRESENT ILLNESS: Patient is a 55-year-old male presented to the emergency department today because he was feeling ill. Patient states that over the past 1 to 2 weeks he has been feeling ill. Patient presented to the emergency department about 10 days ago where the patient had multiple imaging studies which did not show the reason why the patient was feeling ill. Patient had a negative Covid test at that point. Patient left AGAINST MEDICAL ADVICE at that time. Patient presents back today stating he was feeling worse. Patient did have a fever at home. Patient describes his illness as feeling pain all over his body from the tips of his toes to the top of his head. Patient denies any shortness of breath or chest discomfort or heaviness but describes him having pain everywhere. Patient has not been eating very much but has been trying to keep his fluid status up by drinking water or bogdan jaimie. Patient states he recently quit smoking because he thought this was the cause of his illness but smoked about a pack a day prior to this. Patient was found to be hypoxic in the emergency department and needed to be placed on oxygen. PAST MEDICAL HISTORY: Patient denies any past medical history PAST SURGICAL HISTORY: 1. Carpal tunnel repair. SOCIAL HISTORY: Patient smokes cigarettes up until about 3 days ago. Patient denies drinking alcohol. Patient says he smokes marijuana for pain but denies any other illicit drug use. FAMILY HISTORY: When asked, the patient denied any past medical history that he knew of in his family ALLERGIES: Please see below. REVIEW OF SYSTEMS: General: Patient reports fevers HEENT: Patient denies headaches Cardiovascular: Patient reports chest pain but denies chest heaviness or pressure as above Respiratory: Patient denies shortness of breath, cough GI: Patient reports abdominal pain, nausea, vomiting, diarrhea but has not had vomiting or diarrhea in the past few days : Patient denies increased frequency or pain with urination Extremities: Patient reports pain in his extremities but denies swelling Neurological: Patient denies numbness or tingling in legs Skin: Patient denies any new rashes or lesions. Hematologic: Patient denies any easy bruising. Lymphatic: Patient denies any lumps lumps or bumps in neck, axilla, or groin HOME MEDICATIONS: Please see below. PHYSICAL EXAMINATION: VITAL SIGNS: Temperature 97.6, pulse 81, respiratory rate 21, blood pressure 107/53, pulse oximetry 90% on 2 L via nasal cannula General: Alert and oriented male patient who was laying in bed when I walked in. Patient was ill-appearing but did not appear to be in any acute distress. Nasal cannula oxygen was in place. HEENT: Normocephalic, atraumatic, moist mucous membranes. Neck: No lymphadenopathy or thyromegaly Cardiac: Regular rate and rhythm, no murmurs, normal S1, normal S2 Pulm: Clear to auscultation bilaterally. No wheezes, rhonchi, rales Abd: Nondistended, mild tenderness throughout the abdomen to palpation, no rebound tenderness, normal bowel sounds Ext: No edema bilateral lower extremities, pulses 2/4 and equal in bilateral feet Neuro: Patient was able to move all 4 extremities on command and reported equal sensation light touch in all 4 extremities. Skin: Skin of the head, neck, upper and lower extremities was examined did not show any evidence of rash or wounds. LABORATORY DATA: See below. IMAGING: Chest x-ray performed on 01/16/2021 was reported to show probable infiltrate lateral right lung base. MICROBIOLOGY: Please see below. ASSESSMENT: 55-year-old male presented to the hospital feeling ill who was found to have possible pneumonia as well as hyponatremia. . PLAN: 1. Community-acquired pneumonia right lung base. Patient was given a dose of Rocephin and azithromycin in the emergency department. This will be continued for total of 7 days of cephalosporin antibiotics and 5 days of azithromycin. I encouraged the patient to use incentive spirometer. We will continue to monitor the patient's vital signs. 2. Hyponatremia. Patient's osmolality and blood was low. Patient states he is not been eating very much but has been trying to keep hydrated by drinking plenty of water or bogdan jaimie. I believe the patient's hyponatremia may be secondary to his lack of solute. Patient did have a sodium level of 128 when he was in the emergency department on 01/10/2021. Recheck after 1 L of normal saline which was ordered by the emergency department shows the patient's sodium to improve from 123-128. At this time, IV fluids will be stopped and the patient will be encouraged to take food and limit his water intake in order to slowly correct the patient sodium through the got rather than through the IV as the patient does not appear to be symptomatic with his hyponatremia. The only labs I have on this patient in our system are from 01/10/2021 and today. 3. Transaminitis. Patient has a mild elevation in AST today. Patient had an elevation of his AST and ALT at his last visit. Hepatitis panel will be ordered and we will continue to monitor. CT scan does not show any pathology in the liver from 01/10/2021. 4. Total body pain. Patient was placed on Toradol for this however, with the p atient's platelet count being low, this has been discontinued.. I believe this may be secondary to the patient's pneumonia as the patient feels ill and is describing arthralgias and myalgias. We will continue to monitor and as the patient's pneumonia is treated, this should improve as well. 5. Anemia. Patient had a hemoglobin of 10 when he presented to the hospital and this is decreased to 9.3 although patient did receive 1 L of IV fluids. Patient will have Hemoccult blood and iron panels ordered. These will follow up tomorrow. 6. Thrombocytopenia. Patient has a platelet count of 75. Therefore Toradol has been stopped. We will continue to monitor the patient's platelet count and this will most likely need further work-up outpatient. 7. DVT prophylaxis: Lovenox 8. CODE STATUS: Full code Disposition: Patient be admitted to medical surgical floor. I do expect the patient to be discharged after greater than or equal to 2 midnights. Vital Signs Vital Signs Date Time Temp Pulse Resp B/P (MAP) Pulse Ox O2 Delivery O2 Flow Rate FiO2 01/16/21 14:00 97.6 81 21 107/53 (71) 90 Nasal Cannula 2.0 Laboratory Data Labs 24H Laboratory Tests 2 01/16/21 07:14: Neutrophils (%) (Auto) , Nucleated Red Blood Cells % (auto) 0.0, Neutrophils 78H, Band Neutrophils 21H, Lymphocytes (Manual) 1L, Platelet Estimate INVALID, Clumped Platelets LARGE AMT, Anion Gap 5L, Glomerular Filtration Rate > 60.0, Calcium Level 7.1L, Total Bilirubin 1.1H, Direct Bilirubin 0.8H, Aspartate Amino Transf (AST/SGOT) 54H, Alanine Aminotransferase (ALT/SGPT) 41, Alkaline Phosphatase 98, Total Creatine Kinase 102, Creatine Kinase MB 1.2, Creatine Kinase MB Relative Index 1.18, Troponin I < 0.02, Total Protein 5.2L, Albumin 1.5L, Albumin/Globulin Ratio 0.4, Coronavirus (COVID-19)(PCR) NEGATIVE, Influenza Type A (RT-PCR) NEGATIVE, Influenza Type B (RT-PCR) NEGATIVE, Respiratory Syncytial Virus (PCR) NEGATIVE 01/16/21 07:31: Lactic Acid Level 1.4 01/16/21 07:33: Blood Gas Bicarbonate Standard 28.4, Venous Blood pH 7.556H, Venous Blood Partial Pressure CO2 30.3L, Venous Blood Partial Pressure O2 113.8H, Venous Blood Total Carbon Dioxide 27.2, Venous Blood HCO3 26.3, Venous Blood Oxygen Saturation 98.3H, Venous Blood Base Excess 4.4H 01/16/21 10:43: Osmolality 268L, Procalcitonin 2.52, Thyroid Stimulating Hormone (TSH) 1.520, Free Thyroxine 1.33 01/16/21 12:23: Methicillin-Resist S.aureus DNA PCR NOT DETECTED 01/16/21 14:01: Nucleated Red Blood Cells % (auto) 0.0, Immature Platelet Fraction 6.4, Anion Gap 6L, Glomerular Filtration Rate > 60.0, Calcium Level 7.0L 01/16/21 14:21: Urine Color АЛЕКСАНДР, Urine Appearance CLEAR, Urine pH 5.0, Urine Specific [place] 1.014, Urine Protein NEGATIVE, Urine Glucose (UA) NEGATIVE, Urine Ketones NEGATIVE, Urine Blood 1+H, Urine Nitrite NEGATIVE, Urine Bilirubin NEGATIVE, Urine Urobilinogen 4.0H, Urine Leukocyte Esterase TRACEH, Urine WBC (Auto) 16H, Urine RBC (Auto) 4H, Urine Hyaline Casts (Auto) 0, Urine Bacteria (Auto) NEGATIVE, Urine Squamous Epithelial Cells 0, Urine Sperm (Auto) , Urine Osmolality 421, Urine Random Creatinine 103.0, Urine Random Sodium < 10 CBC/BMP Laboratory Tests 01/16/21 07:14 01/16/21 14:01 Microbiology Microbiology 01/16/21 Urine Culture, Received Pending 01/16/21 Blood Culture, Received Pending 01/16/21 Blood Culture, Received Pending Home Medications No Active Prescriptions or Reported Meds Allergies Coded Allergies: latex (Verified Allergy, Unknown, 01/10/21) rash/hives A-FIB/CHADSVASC A-FIB History Current/History of A-Fib/PAF?: No SURAJ CAMPBELL DO Jan 16, 2021 15:50
[2021-01-16] MEDS: oxyCODONE 5MG TAB PO PRN ×2 (18:00→23:42)
[2021-01-16 20:54] LABS: BLOOD UREA NITROGEN 40 MG/DL (7-18); CALCIUM LEVEL 6.6 MG/DL (8.5-10.1); CARBON DIOXIDE LEVEL 26 MEQ/L (21-32); CHLORIDE LEVEL 95 MEQ/L (98-107); CREATININE FOR GFR 1.08 MG/DL (0.70-1.30); GLOMERULAR FILTRATION RATE > 60.0 (>56); GLUCOSE, FASTING 150 MG/DL (70-100); POTASSIUM SERUM 3.7 MEQ/L (3.5-5.1); SODIUM LEVEL 129 MEQ/L (136-145)
[2021-01-16 20:59] LABS: PERCENT SATURATION 10.4 % (19.7-50.0)
[2021-01-16 21:45] LABS: HEPATITIS B SURFACE ANTIGEN NEGATIVE (NEGATIVE); HEPATITIS C VIRUS ABY INDEX < 0.0 INDEX (<0.8)
[2021-01-16 22:00] VITALS: BP 108/76
[2021-01-16 23:16] VITALS: O2SAT 94
[2021-01-16] MEDS ORDERED: NS 1,000 ML IV SCH (23:20)
[2021-01-17] VITALS (21 sets, daily range): BP systolic 104–122; BP diastolic 54–72; O2SAT 94–96
[2021-01-17] MEDS ORDERED: VANCOMYCIN HCL 750 MG, VIAL MATE ADAPTER 1 EACH in NS 250 ML IV ONE ×4 (01:00)
[2021-01-17] MEDS ORDERED: LOPERAMIDE 2 MG CAPLET PO ONE (04:45)
[2021-01-17] MEDS ORDERED: LOPERAMIDE 2 MG CAPLET PO PRN (04:45)
[2021-01-17] MEDS: oxyCODONE 5MG TAB PO PRN ×2 (05:50→12:13)
[2021-01-17 06:43] LABS: MEAN CORPUSCULAR HEMOGLOBIN 29.9 pg (27.0-33.0); MEAN CORPUSCULAR VOLUME 87.9 fl (80.0-96.0); RED BLOOD COUNT 2.14 10^6/uL (4.30-6.10); WHITE BLOOD COUNT 13.9 10^3/uL (4.0-10.0)
[2021-01-17 07:00] LABS: HEMATOCRIT 18.8 % (42.0-52.0); HEMOGLOBIN 6.4 g/dl (13.5-17.5); PLATELET COUNT, AUTOMATED 86 10^3/uL (150-450)
[2021-01-17 07:07] LABS: BLOOD UREA NITROGEN 40 MG/DL (7-18); CALCIUM LEVEL 6.2 MG/DL (8.5-10.1); CARBON DIOXIDE LEVEL 25 MEQ/L (21-32); CHLORIDE LEVEL 95 MEQ/L (98-107); CREATININE FOR GFR 0.95 MG/DL (0.70-1.30); GLOMERULAR FILTRATION RATE > 60.0 (>56); GLUCOSE, FASTING 162 MG/DL (70-100); MAGNESIUM LEVEL 2.5 MG/DL (1.8-2.4); POTASSIUM SERUM 3.8 MEQ/L (3.5-5.1); SODIUM LEVEL 128 MEQ/L (136-145)
[2021-01-17] MEDS ORDERED: SUCRALFATE SUSP 1GM/10ML UD PO SCH (07:30)
[2021-01-17] MEDS ORDERED: cefTRIAXone SOD 1 GM in D5W MINI-BAG PLUS 50 ML IV SCH (08:00)
[2021-01-17] MEDS ORDERED: ISOVUE-370 76% 100ML VIAL As Ordered ONE (08:47)
[2021-01-17] MEDS ORDERED: NS 1,000 ML IV ONE (08:50)
[2021-01-17] MEDS ORDERED: AZITHROMYCIN INJ 500 MG, VIAL MATE ADAPTER 1 EACH in NS 250 ML IV SCH (09:00)
[2021-01-17] MEDS: PANTOPRAZOLE 40MG VIAL (C9113 PER 1) IV SCH ×2 (09:03→22:30)
--- NOTE | 2021-01-17 09:46 | CR.PDOC ---
General Date of Consultation: Jan 17, [address] Kate REASON FOR CONSULTATION/CHIEF COMPLAINT: GIB HISTORY OF PRESENT ILLNESS: The patient is a 55-year-old male who denies any significant past medical history. He presented to the emergency department 01/10/2021 reporting fever, cough, shortness of breath, chills, muscle pain, headache and sore throat. Evaluation in the emergency department at that time w as unrevealing, the patient was noted to be negative for Covid and flu. Imaging included chest x-ray, CTA chest, CT abdomen/pelvis and right upper quadrant ultrasound which indicated no acute disease. Subsequently the patient left the emergency department AMA. The patient returned to the emergency department 01/16/2021 still reporting that he felt generally ill, decreased appetite, had had a fever at home and muscle aches. Chest x-ray indicated possible infiltrate right base and the patient was admitted with community-acquired pneumonia. He was also noted to be hyponatremic and mild elevation in LFTs. Overnight, the patient was noted to have 3 bloody bowel movements, 5 bowel movements so far today. Nursing has stated some bowel movements have been bright red in color, others have been more maroon in color. Hemoglobin on admission was noted to be 9.3 and this morning 6.4. 3 units packed red blood cells have been ordered as per the hospitalist service. General surgery was consulted for GI bleeding. The patient reports over the past couple of weeks he has noticed black stools. He also reports epigastric, mid upper abdominal pain which has been worse over the past 2 days but worsened last evening as well. He states he has had heartburn on and off over the past few weeks, but reports heartburn was worse all of last night. He denies nausea or vomiting. He currently smokes but denies any alcohol use. He does state he drinks 2 energy drinks per day. Denies spicy or acidic foods. ALLERGIES: Please see below. HOME MEDICATIONS: Please see below. PAST MEDICAL HISTORY: Tobacco use PAST SURGICAL HISTORY: Carpal tunnel repair Family history. Reports no family history of colorectal cancer SOCIAL HISTORY: History of tobacco use Denies any alcohol use History of marijuana but denies any other illicit drug use REVIEW OF SYSTEMS: As noted in HPI otherwise 10 point review of systems unremarkable. PHYSICAL EXAMINATION: VITAL SIGNS: Please see below. GENERAL APPEARANCE: Resting in bed comfortably, no acute distress HEENT: Mucous membranes are moist, pink. Conjunctive a pink. RESPIRATORY: Good air entry, no wheezing. CARDIOVASCULAR: S1-S2 tachycardic ABDOMEN: Soft, tenderness with palpation in the mid upper abdomen and epigastric area, nondistended. EXTREMITIES: No edema LABORATORY DATA: WBC 13.9, 10.5 on admission. Hemoglobin 6.4 this morning, 9.3 on admission Platelets 86, 75 on admission. Sodium was 128 this morning Serum creatinine 0.95, GFR greater than 60. LFTs on admission indicate total bilirubin 1.1, direct bilirubin 0.8, AST 54, ALT 41. Iron studies indicate iron 12, TIBC 115, ferritin 1256, percent saturation 10.4 CT abdomen/pelvis from 01/10/2021 unremarkable. No acute abnormality. ASSESSMENT/PLAN: GIB. The patient is reporting black stools prior to admission, nursing is reporting bright red blood overnight and also melanotic appearing stools this morning. The patient is noted to have epigastric/mid upper abdomen discomfort on exam this morning. The patient is reviewed and examined as per Dr. Kate. The patient's exam this morning seems most consistent with gastritis/duodenitis, possible gastric ulcer. Versus colitis. Have made the patient n.p.o. Continue with IV fluids as per hospitalist Continue with IV antibiotics as per hospitalist Continue with IV Protonix twice daily Transfusion as per hospitalist Add sucralfate QID. Request CT abdomen/pelvis with contrast to reevaluate. Hold off on any procedures at this time. Continue to closely monitor. Further recommendations pending review of imaging. Vital Signs/I&O Vital Signs Date Time Temp Pulse Resp B/P (MAP) Pulse Ox O2 Delivery O2 Flow Rate FiO2 01/17/21 07:52 100.0 127 24 115/70 (85) 94 Nasal Cannula 2.0 I&O- Last 24 Hours up to 6 AM 01/17/21 05:59 Intake Total 4465 ml Output Total 500 ml Balance 3965 ml Laboratory Data Labs 24H Laboratory Tests 2 01/16/21 10:43: Osmolality 268L, Procalcitonin 2.52, Thyroid Stimulating Hormone (TSH) 1.520, Free Thyroxine 1.33 01/16/21 12:23: Methicillin-Resist S.aureus DNA PCR NOT DETECTED 01/16/21 14:01: Nucleated Red Blood Cells % (auto) 0.0, Immature Platelet Fraction 6.4, Anion Gap 6L, Glomerular Filtration Rate > 60.0, Calcium Level 7.0L 01/16/21 14:21: Urine Color АЛЕКСАНДР, Urine Appearance CLEAR, Urine pH 5.0, Urine Specific [place] 1.014, Urine Protein NEGATIVE, Urine Glucose (UA) NEGATIVE, Urine Ketones NEGATIVE, Urine Blood 1+H, Urine Nitrite NEGATIVE, Urine Bilirubin NEGATIVE, Urine Urobilinogen 4.0H, Urine Leukocyte Esterase TRACEH, Urine WBC (Auto) 16H, Urine RBC (Auto) 4H, Urine Hyaline Casts (Auto) 0, Urine Bacteria (Auto) NEGATIVE, Urine Squamous Epithelial Cells 0, Urine Sperm (Auto) , Urine Osmolality 421, Urine Random Creatinine 103.0, Urine Random Sodium < 10 01/16/21 19:59: Anion Gap 8, Glomerular Filtration Rate > 60.0, Calcium Level 6.6L, Iron Level 12L, Total Iron Binding Capacity 115L, Transferrin % Saturation 10.4L, Ferritin 1256H, Hepatitis B Surface Antigen NEGATIVE, Hepatitis C Antibody Index < 0.0 01/17/21 05:34: Anion Gap 8, Glomerular Filtration Rate > 60.0, Calcium Level 6.2L, Nucleated Red Blood Cells % (auto) 0.0, Magnesium Level 2.5H CBC/BMP Laboratory Tests 01/16/21 14:01 01/16/21 19:59 01/17/21 05:34 Microbiology Microbiology 01/17/21 Gram Stain, Received Pending 01/17/21 Sputum Culture, Received Pending 01/16/21 Stool Occult Blood (JONATHAN) - Final, Complete 01/16/21 Blood Culture, Received Pending 01/16/21 Urine Culture, Received Pending 01/16/21 Blood Culture - Preliminary, Resulted 01/16/21 Blood Culture - Preliminary, Resulted Allergies Coded Allergies: latex (Verified Allergy, Unknown, 01/10/21) rash/hives Home Medications No Active Prescriptions or Reported Meds Jacquie Aquino Jan 17, 2021 09:46
[2021-01-17 09:52] LABS: INR 1.36; PROTHROMBIN TIME 17.2 SECONDS (12.7-14.5)
--- NOTE | 2021-01-17 09:55 | REPVR ---
PROCEDURE INFORMATION: Exam: CT Abdomen And Pelvis With Contrast Exam date and time: 01/17/2021 8:48 AM Age: 55 years old Clinical indication: Abdominal pain; Generalized TECHNIQUE: Imaging protocol: Computed tomography of the abdomen and pelvis with contrast. Radiation optimization: All CT scans at this facility use at least one of these dose optimization techniques: automated exposure control; mA and/or kV adjustment per patient size (includes targeted exams where dose is matched to clinical indication); or iterative reconstruction. Contrast material: ISOVUE 370; Contrast volume: 100 ml; Contrast route: INTRAVENOUS (IV); COMPARISON: CT ABD/PEL W/IV CONTRAST ONLY 01/10/2021 8:59 PM FINDINGS: Lungs: Bibasilar patchy airspace and ground-glass opacities. Linear atelectasis or scarring in the bilateral lower lobes. Trace bilateral pleural effusions. Liver: Mild hepatomegaly and steatosis. Gallbladder and bile ducts: Normal. No calcified stones. No ductal dilation. Pancreas: Normal. No ductal dilation. Spleen: Normal. No splenomegaly. Adrenal glands: Normal. No mass. Kidneys and ureters: Non-specific bilateral perinephric fat stranding. Stable indeterminate 1.3 cm low-attenuation right renal lesion. Nonobstructive bilateral nephrolithiasis. Stomach and bowel: Unremarkable. No obstruction. No mucosal thickening. Appendix: No evidence of appendicitis. Intraperitoneal space: Trace ascites. Vasculature: Atherosclerotic disease of the abdominal aorta. Lymph nodes: Suggestion of right hilar adenopathy. Urinary bladder: Unremarkable as visualized. Reproductive: Unremarkable as visualized. Bones/joints: Multilevel degenerative disease and facet arthropathy of the lumbar spine. Soft tissues: Fat containing left inguinal hernia. IMPRESSION: Interval development of patchy bibasilar airspace and ground-glass opacities. Trace bilateral pleural effusions. Trace ascites and extensive bilateral perinephric fat stranding. Electronically signed by: Ken De La Cruz On 01/17/2021 09:54:58 AM
[2021-01-17] MEDS: VANCOMYCIN HCL 1,000 MG, VIAL MATE ADAPTER 1 EACH in NS 250 ML IV SCH ×2 (10:42→17:39)
[2021-01-17 12:05] LABS: MEAN CORPUSCULAR HEMOGLOBIN 29.9 pg (27.0-33.0); MEAN CORPUSCULAR HGB CONC 33.7 g/dl (32.0-36.5); MEAN CORPUSCULAR VOLUME 88.7 fl (80.0-96.0); RED BLOOD COUNT 1.94 10^6/uL (4.30-6.10); WHITE BLOOD COUNT 13.8 10^3/uL (4.0-10.0)
[2021-01-17] MEDS: SUCRALFATE SUSP 1GM/10ML UD PO SCH ×3 (12:12→22:30)
[2021-01-17 12:16] LABS: HEMATOCRIT 17.2 % (42.0-52.0); PLATELET COUNT, AUTOMATED 90 10^3/uL (150-450)
[2021-01-17 12:17] LABS: HEMOGLOBIN 5.8 g/dl (13.5-17.5)
[2021-01-17 12:42] LABS: ALT/SGPT 29 U/L (12-78); BILIRUBIN,TOTAL 0.4 MG/DL (0.2-1.0); BLOOD UREA NITROGEN 39 MG/DL (7-18); CALCIUM LEVEL 6.5 MG/DL (8.5-10.1); CARBON DIOXIDE LEVEL 27 MEQ/L (21-32); CHLORIDE LEVEL 97 MEQ/L (98-107); CREATININE FOR GFR 0.91 MG/DL (0.70-1.30); GLOMERULAR FILTRATION RATE > 60.0 (>56); GLUCOSE, FASTING 148 MG/DL (70-100); SODIUM LEVEL 128 MEQ/L (136-145)
[2021-01-17 14:09] LABS: MYCOPLASMA PNEUMONIAE IgG 377 U/mL (0-99); MYCOPLASMA PNEUMONIAE IgM <770 U/mL (0-769)
[2021-01-17] MEDS ORDERED: MORPHINE 2 MG/ML 1ML VIAL (J2270) IV PRN (17:15)
[2021-01-17 17:17] LABS: HEMATOCRIT 22.9 % (42.0-52.0); MEAN CORPUSCULAR HEMOGLOBIN 29.9 pg (27.0-33.0); MEAN CORPUSCULAR HGB CONC 34.5 g/dl (32.0-36.5); MEAN CORPUSCULAR VOLUME 86.7 fl (80.0-96.0); RED BLOOD COUNT 2.64 10^6/uL (4.30-6.10); WHITE BLOOD COUNT 15.8 10^3/uL (4.0-10.0)
[2021-01-17 17:19] LABS: HEMOGLOBIN 7.9 g/dl (13.5-17.5); PLATELET COUNT, AUTOMATED 94 10^3/uL (150-450)
[2021-01-17] MEDS: MORPHINE 2 MG/ML 1ML VIAL (J2270) IV PRN ×2 (17:40→22:30)
[2021-01-17 18:04] LABS: BLOOD UREA NITROGEN 36 MG/DL (7-18); CALCIUM LEVEL 6.5 MG/DL (8.5-10.1); CARBON DIOXIDE LEVEL 24 MEQ/L (21-32); CHLORIDE LEVEL 102 MEQ/L (98-107); CREATININE FOR GFR 0.77 MG/DL (0.70-1.30); GLOMERULAR FILTRATION RATE > 60.0 (>56); GLUCOSE, FASTING 125 MG/DL (70-100); POTASSIUM SERUM 4.4 MEQ/L (3.5-5.1); SODIUM LEVEL 134 MEQ/L (136-145)
--- NOTE | 2021-01-17 18:25 | IPNPDOC ---
Text Note Date of Service The patient was seen on 01/17/21. NOTE Subjective: Patient is a 55-year-old male who presented the emergency department because he been feeling ill. Patient states that over the past 1 to 2 weeks he been feeling ill. Overnight, patient began having bloody bowel movements. Patient was found to be tachycardic. Patient has been having bloody bowel movements throughout the day. Patient had positive blood cultures for staph aureus x2 with a third culture that was drawn last night being positive for gram-positive cocci in clusters. Patient did have staph aureus in his urine 1 week ago when he was in the emergency department prior to leaving AGAINST MEDICAL ADVICE. Patient still complains of all over body pain including abdominal pain, shoulder pain, and ankle pain. Patient has been running to the bathroom and having a bloody bowel movement every 1-2 hours throughout the day today. Review of systems: General: Patient denies fevers HEENT: Patient denies headaches Cardiovascular: Patient reports chest pain Respiratory: Patient denies shortness of breath, cough GI: Patient reports abdominal pain and bloody bowel movements : Patient denies increased frequency or pain with urination Extremities: Patient denies swelling or pain in extremities Neurological: Patient denies numbness or tingling in legs Physical exam: Vitals: See below General: Alert and oriented male patient who was laying in bed when I walked in. Patient was ill-appearing but did not appear to be in any acute distress. HEENT: Normocephalic, atraumatic, moist mucous membranes. Neck: No lymphadenopathy or thyromegaly Cardiac: Regular rate and rhythm, no murmurs, normal S1, normal S2 Pulm: Clear to auscultation bilaterally. No wheezes, rhonchi, rales Abd: Nondistended, tenderness to palpation especially in the epigastric area, no rebound tenderness normal bowel sounds Ext: No edema bilateral lower extremities. Tenderness over the shoulders and ankles bilaterally Labs: See below Imaging: CT of the abdomen and pelvis performed with contrast on 01/17/2021 was reported to show interval development of patchy bibasilar airspace and groundglass opacities. Trace bilateral pleural effusions. Trace ascites and extensive bilateral perinephric fat stranding. Assessment/plan: 55-year-old male presented hospital feeling ill who was diagnosed with possible pneumonia as well as hyponatremia who started having gastrointestinal bleeding and found to be anemic due to acute blood loss anemia. 1. Acute blood loss anemia secondary to gastrointestinal bleeding. General surgery has been consulted. Patient received 3 units of blood and a unit of FFP as the patient's INR was slightly elevated. Patient will receive 1 additional unit of packed red blood cells and we will recheck his H&H at 11 PM tonight. If the H&H is less than 7, he can be transfused 2 additional units. If the patient's hemoglobin remained stable we will continue medical management with IV Protonix and Carafate. If the patient's hemoglobin continues to downtrend, patient will be brought for an EGD early tomorrow morning. I appreciate Dr. Kate's help treating the patient. Patient has been made n.p.o. at this time. 2. Staph aureus bacteremia. This most likely MSSA due to a urine culture that was positive for MSSA back 1 week ago however, we will continue with vancomycin at this time. Patient was started on nafcillin by infectious disease. 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 Godinez believes that the patient has septic emboli that were seen on CT of the chest. Patient has had persistent bacteremia most likely for quite some time. Patient will have echocardiogram performed. We will continue to monitor the patient at this time. 3. Hyponatremia. Patient's sodium level has improved with fluids and blood. We will continue to monitor. Patient's sodium was corrected from 123-128 in the first 24 hours and is now 134. We will continue to monitor. 4. Transaminitis. Patient had a mild elevation in AST. Hepatitis B and C were negative. 5. Total body pain. Patient will continue with IV morphine at this time. Total body pain may be secondary to the patient's and possible endocarditis. 6. Thrombocytopenia. Patient's platelet count has slowly improved. We will continue to monitor as we replete the patient's blood count. DVT Prophylaxis: Mechanical due to GI bleeding Disposition: Pending clinical improvement Goldy CHILDERS, I+O VSGoldy, I+O Laboratory Tests 01/16/21 19:59 01/17/21 05:34 01/17/21 11:17 01/17/21 17:01 Vital Signs Date Time Temp Pulse Resp B/P (MAP) Pulse Ox O2 Delivery O2 Flow Rate FiO2 01/17/21 18:09 99.3 109 16 113/60 94 Room Air 01/17/21 07:52 2.0 I&O- Last 24 Hours up to 6 AM 01/17/21 06:00 Intake Total 5065 ml Output Total 500 ml Balance 4565 ml SURAJ CAMPBELL DO Jan 17, 2021 18:25
[2021-01-17] MEDS: NAFCILLIN SOD 2 GM in D5W MINI-BAG PLUS 50 ML IV SCH ×2 (19:20→23:00)
--- NOTE | 2021-01-17 19:34 | CR.PDOC ---
General Date of Consultation: Jan 17, 2021 Referring Provider: SURAJ CAMPBELL DO Attending Physician: Petros Godinez MD Consultation REASON FOR CONSULTATION/CHIEF COMPLAINT: Possible bacteremia; fever and diffuse body pain HISTORY OF PRESENT ILLNESS: Mr. Lima is a 55-year-old male who is referred to ID for possible Staph aureus bacteremia. He presently complains of extreme, diffuse pain throughout his body worsened by palpation and movement. His pain began on 01/05/21, along with fever, chills, diaphoresis, myalgia, arthralgia, and hyperalgesia. He reports a peak temp of 102.5 at home. He usually uses marijuana for pain, but it provided only minimal relief. He also tried Ibuprofen 400mg BID without improvement, which prompted his initial ED visit on 01/10/21. At that time, his vitals were T 102.5, P 99, R 20, BP 141/68, Pulse ox 100% on room air. Lab results showed WBC 12.2, Hgb 13.3, Hct 39.1, Plt count 113, Neutrophils 88, CRP 19.30. Urine culture was positive for Staph aureus. CTA chest showed scattered small nodular densities with bilateral hilar lymphadenopathy, greater on the right than the left. No blood cultures were taken during this ED visit and the patient left AMA. The patient returned to the ED on 01/16/21 because the pain and fever persisted. At this time, the patient's fever has slightly improved to 99. He continues to complain of extreme pain throughout his body. He is hypersensitive to touch and movement. He also reports his stool had changed to a red color in the last 3 days. In addition to IV fluids and blood transfusions, he was started on IV Rocephin 1gm, Vancomycin 750mg, and Azithromycin 500mg. REVIEW OF SYSTEMS: CONSTITUTIONAL: Fever, chills, diaphoresis, diffuse pain all over this body for the past 2 weeks. Decreased appetite, but has tried to stay hydrated. HEENT: Lightheadedness. Denies headaches or dizziness CARDIOVASCULAR: Intermittent chest pain for the past 2 weeks. Denies palpitations. RESPIRATORY: Dyspnea on exertion with pleuritic chest pain. GENITOURINARY: Slight burning on urination this past 2 weeks. Has noticed h ematuria this past week, but appears to have cleared now. MUSCULOSKELETAL: Diffuse pain throughout his body, feels like he cannot move anything body part without extreme pain. GASTROINTESTINAL: Abdominal pain and nausea/heartburn for about 1 week. 3 episodes of non-bloody vomiting on 01/10. Black diarrhea starting about 2 weeks ago that has turned to a red-colored diarrhea in the last 3 days. Feels like he has a bowel movement every hour. SKIN: Denies any new rashes or lesions. NEUROLOGICAL: Denies loss of consciousness or syncopal episodes. ALLERGIES: -Latex, rash MEDICATIONS: -IV Nafcillin 2gm Q4H -IV Vancomycin 1gm Q8H -IV Morphine 1mg Q4H PRN -PO Acetaminophen 650mg Q4H PRN -PO Sulcralfate 1gm QID -IV Pantoprazole 40mg BID -IV Ceftriaxone 1gm, discontinued -IV Azithromycin 500mg, discontinued PAST MEDICAL HISTORY: -Chronic back pain s/p 2 back surgeries in L4, L5, S1 -Right carpal tunnel syndrome s/p hand surgery PAST SURGICAL HISTORY: -2 lower back surgeries in 1985 and 2010 -Right hand carpal tunnel repair in 2006 FAMILY HISTORY: Father: from unknown cause Mother: from unknown cancer Siblings: 1 brother and 3 sisters; healthy No known history of medical conditions in the family SOCIAL HISTORY: Marital status and/or living arrangements: Lives alone in a trailer near his brother; Children: 2 sons Employment: Currently on disability to due back pain; 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 He becomes distressed upon palpation and movement. HEENT: NC, AT. Non-injected conjunctiva. Sclera non-icteric. Mucus membranes moist. RESPIRATORY: Rhonchi appreciated at bilateral bases. No obvious wheezing or rales heard. CARDIOVASCULAR: Tachycardic rate, regular rhythm. Holosystolic murmur best heard at left 2nd ICS. ABDOMEN: Soft abdomen. Tender to palpation in all quadrants. Positive bowel sounds. EXTREMITIES: Edematous right hand and ankle. Hypersensitive to palpation all over his body, but the pain appears worse in his bilateral shoulders and right ankle. Bilateral shoulder abduction to approx 70 deg. Unable to flex or extend the right ankle to an appreciable degree. Active range of motion appreciated in bilateral elbows, wrists, hips, knees, and left ankle. Bilateral radial, dorsalis pedis, and posterior tibialis pulses appreciated. NEUROLOGICAL: No obvious focal deficits noted. LABORATORY DATA: -WBC 13.8, Hgb 5.8, Hct 17.2, Plt count 90, Neutrophils 78, Band neutrophils 21 -Na 128, K 4.0, Cl 97, CO2 27, BUN 39, Cr 0.91, Glu 148, TBili 0.4, AST 50, ALT 29, ALP 60, Procal 2.52 -Chlamydiae pneumoniae, Legionella, Strep Pneumoniae pending -SARS-CoV-2, HBV, HCV, Influenza, Mycoplasma, RSV, MRSA negative MICROBIOLOGY: 01/10/21 Respiratory viral panel - negative 01/10/21 Urine culture - S. aureus positive 01/16/21 Urine culture - pending 01/16/21 Preliminary blood culture (1/2) - S. aureus positive 01/16/21 Preliminary blood culture (2/2) - S. aureus positive 01/16/21 Preliminary blood culture gram stain - Gram positive cocci in clusters 01/16/21 Stool occult blood - positive 01/17/21 Sputum gram stain - few WBCs, few epithelial cells, many yeast like organism, moderate gram positive cocci, few gram negative rods 01/17/21 Sputum culture - pending 01/17/21 Blood culture (1/2) - pending 01/17/21 Blood culture (2/2) - pending IMAGIN01/10/21 CTA Chest: "Scattered small nodular densities right and left lung abutting the pleura. Prominent lymphoid tissue and small lymph nodes right and left hilum greater on the right." 01/16/21 Portable CXR: "There is probable mild infiltrate laterally in the right lung base." 01/17/21 CT Abd/Pelvis: "Interval development of patchy bibasilar airspace and ground-glass opacities. Trace bilateral pleural effusions. Trace ascites and extensive bilateral perinephric fat stranding." IMPRESSION: #Sepsis likely 2/2 Staph aureus bacteremia with infective endocarditis, MSSA vs MRSA -Patient presents with fever, chills, diaphoresis and diffuse pain throughout his body for the past 2 weeks. At his ED visit on 01/10/21, his labs indicated elevated WBC, neutrophils and CRP. CTA chest showed nodularities throughout this lung and hilar lymphadenopathy. Urine culture showed staph aureus bacteriuria mo st likely due to staph aureus bacteremia. However, blood cultures were not done during this visit to confirm this finding. Staph aureus bacteremia is associated with increased mortality in staph aureus bacteremic patients. This patient most likely has MSSA as seen in the 2 positive preliminary blood cultures, although etiology of infection is currently unknown. We will discontinue ceftriaxone and azithromycin and switch to nafcillin. Vancomycin will be continued until final repeat blood cultures are resulted. -Patient does present with a holosystolic murmur. Echo is pending to confirm possible infective endocarditis, which can lead to septic emboli. Staph aureus is one of the leading causes of infective endocarditis with a mortality rate of 30-40%. Septic emboli can progress from the heart and travel through the blood and lodge in various blood vessels causing ischemia/infarction/occlusions, etc. -The pain this patient is experiencing, especially in his shoulders and right ankle, could be due to seeding of bacteria into these joint spaces resulting in metastatic infections. MRI is ordered to rule out possible abscesses/infection. Ortho consult will be considered pending results. #Abdominal pain likely 2/2 GIB -The patient admitted to taking 400mg BID of Ibuprofen for about 2 weeks, which likely caused gastric ulcerations and subsequent GIB and melena/hematochezia. Even if the patient does have infective endocarditis, septic emboli causing ischemic bowel would be less likely because the patient does not present with intense, cramping abdominal pain. CT abd/pelvis also did not show presence of emboli or thrombi in the bowel. This patient's abdominal pain and abnormal stool is more likely GIB-related. The patient denied ever having an EGD or colonoscopy done, which can be followed up with GI or general surgery for further evaluation. PLAN: -Switch from IV Rocephin and Azithromycin to IV Nafcillin 2gm Q4H for MSSA coverage. -Continue IV Vancomycin 1gm Q8H for possible MRSA coverage, pending repeat blood cultures. -Echocardiogram pending for possible endocarditis. -MRI bilateral shoulders and right ankle to rule out potential abscesses; will consider ortho consult pending results. Vital Signs/I&O Vital Signs Date Time Temp Pulse Resp B/P (MAP) Pulse Ox O2 Delivery O2 Flow Rate FiO2 01/17/21 16:00 99.0 107 22 120/68 (85) 99 Room Air 01/17/21 07:52 2.0 I&O- Last 24 Hours up to 6 AM 01/17/21 06:00 Intake Total 5065 ml Output Total 500 ml Balance 4565 ml Laboratory Data Labs 24H Laboratory Tests 2 01/16/21 19:59: Anion Gap 8, Glomerular Filtration Rate > 60.0, Calcium Level 6.6L, Iron Level 12L, Total Iron Binding Capacity 115L, Transferrin % Saturation 10.4L, Ferritin 1256H, Hepatitis B Surface Antigen NEGATIVE, Hepatitis C Antibody Index < 0.0 01/17/21 05:34: Anion Gap 8, Glomerular Filtration Rate > 60.0, Calcium Level 6.2L, Nucleated Red Blood Cells % (auto) 0.0, Magnesium Level 2.5H 01/17/21 09:19: Prothrombin Time 17.2H, Prothromb Time International Ratio 1.36, Activated Partial Thromboplast Time 48.0H 01/17/21 11:17: Anion Gap 4L, Glomerular Filtration Rate > 60.0, Calcium Level 6.5L, Nucleated Red Blood Cells % (auto) 0.0, Total Bilirubin 0.4#, Aspartate Amino Transf (AST/SGOT) 50H, Alanine Aminotransferase (ALT/SGPT) 29, Alkaline Phosphatase 60, Total Protein 4.0#L, Albumin 1.0#L, Albumin/Globulin Ratio 0.3 01/17/21 17:01: CBC/BMP Laboratory Tests 01/16/21 19:59 01/17/21 05:34 01/17/21 11:17 Microbiology Microbiology 01/17/21 Blood Culture, Received Pending 01/17/21 Blood Culture, Received Pending 01/17/21 Gram Stain - Final, Resulted 01/17/21 Sputum Culture, Resulted Pending 01/16/21 Stool Occult Blood (JONATHAN) - Final, Complete 01/16/21 Blood Culture - Preliminary, Resulted 01/16/21 Urine Culture, Received Pending 01/16/21 Blood Culture - Preliminary, Resulted Staphylococcus Aureus 01/16/21 Blood Culture - Preliminary, Resulted Staphylococcus Aureus Allergies Coded Allergies: latex (Verified Allergy, Unknown, 01/10/21) rash/hives Home Medications No Active Prescriptions or Reported Meds GME ATTESTATION GME ATTESTATION My faculty preceptor for this patient encounter was physically present during the encounter and was fully available. All aspects of the patient interview, examination, medical decision making process, and medical care plan development were reviewed and approved by the faculty preceptor. The faculty preceptor is aware and concurs with the plan as stated in the body of this note and will attest to such by his/her cosignature. SHEREEN GUZMAN OMS-3 Jan 17, 2021 19:33
--- NOTE | 2021-01-17 20:02 | ECGEPIP ---
[facility] - ED Test Date: 2021-01-16 Pat Name: MINA NARANJO Department: Room: - Gender: Male [employer]: JKourtney : 1965 Requested By: Inna Dobbs Order Number: [id number] Reading MD: Inna Dobbs Measurements Intervals [place] Rate: 108 P: 63 [place]: 154 QRS: -27 QRSD: 164 T: 92 QT: 384 QTc: 514 Interpretive Statements Sinus tachycardia Left bundle branch block increased rate 01/10/21 Electronically Signed on 01-17-2021 20:02:28 EDT by Inna Dobbs
[2021-01-18] VITALS (13 sets, daily range): BP systolic 105–138; BP diastolic 53–91
[2021-01-18] MEDS ORDERED: CALCIUM GLUCONATE 1,000 MG in D5W MINI-BAG PLUS 100 ML IV ONE (01:15)
[2021-01-18] MEDS: NAFCILLIN SOD 2 GM in D5W MINI-BAG PLUS 50 ML IV SCH ×6 (02:07→23:00)
[2021-01-18 02:15] LABS: MEAN CORPUSCULAR HEMOGLOBIN 29.9 pg (27.0-33.0); MEAN CORPUSCULAR HGB CONC 34.7 g/dl (32.0-36.5); MEAN CORPUSCULAR VOLUME 86.3 fl (80.0-96.0); PLATELET COUNT, AUTOMATED 102 10^3/uL (150-450); RED BLOOD COUNT 2.04 10^6/uL (4.30-6.10); WHITE BLOOD COUNT 14.8 10^3/uL (4.0-10.0)
[2021-01-18 02:19] LABS: HEMATOCRIT 17.6 % (42.0-52.0); HEMOGLOBIN 6.1 g/dl (13.5-17.5)
[2021-01-18] MEDS ORDERED: VANCOMYCIN HCL 750 MG, VIAL MATE ADAPTER 1 EACH in NS 250 ML IV ONE ×2 (03:00→04:00)
[2021-01-18] MEDS: MORPHINE 2 MG/ML 1ML VIAL (J2270) IV PRN ×5 (03:35→22:05)
[2021-01-18] MEDS ORDERED: propofoL 200 MG/20 ML VIAL As Ordered ONE (05:58)
[2021-01-18] MEDS ORDERED: fentaNYL 100 MCG/2 ML INJECTION (J3010) As Ordered ONE (05:58)
[2021-01-18] MEDS ORDERED: LIDOCAINE 2% 100MG/5ML SDV (FOR ANES.) As Ordered ONE (05:58)
[2021-01-18] MEDS ORDERED: SIMETHICONE 40MG/0.6ML DROPS 30ML As Ordered ONE (06:00)
--- NOTE | 2021-01-18 06:19 | IPNPDOC ---
Text Note Date of Service The patient was seen on 01/18/21. NOTE Overnight he is still showing signs of continued bleeding. He has had 6 units of blood, and some FFP. Hgb continues to drop, and he has had multiple bloody BMS overnight again. Plan for EGD this am. No changes to H+P. Consent is signed and on chart. Faraht Kate DO VS,Goldy, I+O VS, Goldy, I+O Laboratory Tests 01/17/21 11:17 01/17/21 17:01 01/18/21 02:01 Vital Signs Date Time Temp Pulse Resp B/P (MAP) Pulse Ox O2 Delivery O2 Flow Rate FiO2 01/18/21 04:29 98.5 83 20 115/60 98 Room Air 01/17/21 07:52 2.0 I&O- Last 24 Hours up to 6 AM 01/18/21 06:00 Intake Total 5256 ml Balance 5256 ml ENMANUEL KATE DO Jan 18, 2021 06:19
[2021-01-18] MEDS ORDERED: ONDANSETRON 4MG/2ML VIAL IV PRN (07:30)
[2021-01-18] MEDS ORDERED: LR 1,000 ML IV SCH (07:30)
[2021-01-18] MEDS: SUCRALFATE SUSP 1GM/10ML UD PO SCH ×4 (09:03→21:00)
[2021-01-18] MEDS: PANTOPRAZOLE 40MG VIAL (C9113 PER 1) IV SCH ×2 (09:03→21:00)
--- NOTE | 2021-01-18 09:16 | RO ---
OPERATIVE NOTE DATE OF OPERATION: 01/18/2021 PREOPERATIVE DIAGNOSIS: Melena. POSTOPERATIVE DIAGNOSIS: Camille esophagitis with bleeding duodenal ulcer. PROCEDURE: Esophagogastroduodenoscopy. SURGEON: Shreyas Kate DO ANESTHESIA: MAC. ESTIMATED BLOOD LOSS: None. COMPLICATIONS: None. INDICATIONS FOR PROCEDURE: The patient is a 55-year-old male who presents with GI bleed and pneumonia. He has had persistent anemia and persistent bloody stools. He has failed to respond to multiple transfusions, therefore, the recommendation was to proceed with EGD. Risks and benefits of the procedure, not limited to, but including bleeding, infection, perforation, and need for further procedure were discussed in detail with the patient. Informed consent was obtained and the procedure was planned. DESCRIPTION OF PROCEDURE: The patient was brought back to operating room #3. After sufficient sedation, the timeout was done to confirm proper patient and proper procedure. Following that, the endoscope was passed down the esophagus into the stomach. No visible blood was noted. The scope was then passed into the duodenum. Again, no bleeding was identified. There was a large ulcer with a clot in it right in the duodenal bulb. There was no active bleeding from that. Because of that, I left the clot alone. I slowly withdrew the scope back inside of the stomach up into the esophagus. There was some white pseudomembranous tissue down the length of the esophagus. The scope was then fully withdrawn. The patient was awakened from anesthesia and sent to the PACU in stable condition.
[2021-01-18 10:50] LABS: HEMATOCRIT 23.6 % (42.0-52.0); HEMOGLOBIN 8.1 g/dl (13.5-17.5); MEAN CORPUSCULAR HEMOGLOBIN 29.9 pg (27.0-33.0); MEAN CORPUSCULAR HGB CONC 34.3 g/dl (32.0-36.5); MEAN CORPUSCULAR VOLUME 87.1 fl (80.0-96.0); PLATELET COUNT, AUTOMATED 116 10^3/uL (150-450); RED BLOOD COUNT 2.71 10^6/uL (4.30-6.10); WHITE BLOOD COUNT 16.8 10^3/uL (4.0-10.0)
[2021-01-18 11:16] LABS: BLOOD UREA NITROGEN 34 MG/DL (7-18); CARBON DIOXIDE LEVEL 28 MEQ/L (21-32); CHLORIDE LEVEL 105 MEQ/L (98-107); CREATININE FOR GFR 0.73 MG/DL (0.70-1.30); GLOMERULAR FILTRATION RATE > 60.0 (>56); GLUCOSE, FASTING 135 MG/DL (70-100); MAGNESIUM LEVEL 3.8 MG/DL (1.8-2.4); POTASSIUM SERUM 4.4 MEQ/L (3.5-5.1); SODIUM LEVEL 137 MEQ/L (136-145)
[2021-01-18 12:29] LABS: TOTAL 25(OH) VITAMIN D 28.6 NG/ML (30.0-100.0)
[2021-01-18 12:30] LABS: PTH INTACT 38.5 PG/ML (18.5-88.0)
[2021-01-18] MEDS ORDERED: VANCOMYCIN HCL 750 MG, VIAL MATE ADAPTER 1 EACH in NS 250 ML IV SCH (13:00)
[2021-01-18 13:10] LABS: HIV 1&2 SCREEN CENTAUR NEGATIVE (NEGATIVE)
[2021-01-18] MEDS ORDERED: VANCOMYCIN HCL 500 MG in D5W MINI-BAG PLUS 100 ML IV SCH (14:00)
--- NOTE | 2021-01-18 14:57 | REP ---
INDICATION: pain, edema RO DVT. COMPARISON: None. TECHNIQUE: Multiple ultrasonographic images of the deep venous structures of the right lower extremity were obtained from the inguinal ligament to the ankle. Venous compression techniques, color doppler imaging, and augmentation techniques were also obtained where appropriate. As per the ACR guidelines the anterior tibial vein can not be effectively evaluated. Only compression techniques in the calf on the peroneal and posterior tibial veins was attempted/performed. FINDINGS: There is no abnormal echogenic material seen within any of the visualized deep venous structures that would suggest acute thrombosis. Coaptation is unremarkable throughout. Doppler interrogation shows an expected response to respiratory variability and augmentation in the thigh. Compression techniques in the calf showed no abnormality. The color flow images show what appears to be a normal vascular pattern throughout the thigh. Soft tissue edema is seen from behind the knee to the ankle. IMPRESSION: There is no ultrasonographic evidence of deep venous thrombosis involving any of the visualized deep venous structures of the right lower extremity as described above. <Electronically signed by Ziggy Olmos > 01/18/21 [id number]
--- NOTE | 2021-01-18 15:29 | ECHO ---
ECHOCARDIOGRAM DATE OF PROCEDURE: 01/17/2021 Age: 55 Gender: Male Height: 71 inches Weight: 180 pounds Body surface area: 2.02 m2 [facility] REFERRING PHYSICIAN: Alex Mckeon D.O. INDICATION: Bacteria, abnormal EKG, left bundle branch block. MEASUREMENTS: 2D Measurements: RV - 3.9 cm LV - 4.9 cm Septum 1.3 cm Posterior wall 1.3 cm LA - 4.0 cm LVEF 55%-60% Doppler Measurements: AV - 1.59 m/s LVOT - 1.26 m/s LVOT diameter 2.2 cm MV-E 73, A 95, E/A ratio 0.8 E prime medial 6.9 A prime medial 14 E prime lateral 6.5 Average E/E prime ratio 10.9/PCWP - 15.4 mmHg PV - 1.2 m/s Pulmonary artery acceleration time 85 msec PASP - 45 mmHg IVC - 1.8 cm COMMENTS: Sinus tachycardia with left bundle branch block. Somewhat challenging study, but diagnostically useful information was still obtained. M-mode and 2-dimensional echocardiography was performed with pulse, continuous wave, color flow, and tissue Doppler studies. Mild left ventricular hypertrophy with septal and apical wall motion abnormality due to left bundle branch block, yet preserved global resting systolic function. Slightly dilated left atrium with grade 1 LV diastolic dysfunction but currently normal estimated mean left atrial pressure. Normal right heart chamber sizes and motion with Doppler sign that suggests moderate pulmonary hypertension. Normal IVC size and collapse against an elevated central venous pressure at this time. Normal aortic dimensions. Hard to visualize precisely the aortic valve structure; however, there was no functional valvular abnormality. Normal-appearing mitral valvular apparatus and leaflet excursion with no posterior systolic buckling. Only trace physiologic insufficiency. Normal-appearing tricuspid valve with very mild insufficiency (physiologic). Miniscule pericardial effusion circumferentially without evidence of cardiac chamber compression. No apparent intracardiac mass.
--- NOTE | 2021-01-18 15:34 | IPNPDOC ---
Subjective Date Seen The patient was seen on 01/18/21. Subjective Chief Complaint/HPI SUBJECTIVE: Pt was seen at bedside rounds. He reports that his pain is much better from yesterday. He states that he is still experiencing R sided pleuritic chest pain. He states that his R wrist is hurting a bit more than yesterday and noticed that it's more swollen than yesterday. Denies any fever, shaking chills, abdominal pain, or shortness of breath. OBJECTIVE: VS: see below General: Elderly male, sitting up in bed, without any acute respiratory distress. Able to speak to me in full sentences without accessory muscle use. looks more well hydrated and nourished. AAOx3 NEURO: no focal neuro deficits HEENT: Oral and nasal mucosae are pink and moist without lesions. Oropharynx without erythema or exudate. NECK/LYMPH: No tracheal deviation, stridor, no significant adenopathy in cervical, axillary, post auricular regions. CARDIO: The heart has a regular S1 and S2 without rub or gallop. There's a relatively loud 3/6 holosystolic blowing murmur towards apex of heart. PMI is nondisplaced. PULMONARY: Diminished breath sounds bilateral bases. No wheezing, rhonci, or rales. But did appreciate some grating and creaky sound like tissue paper rubbing bilaterally R>L. There is no dullness to percussion or egophany appreciated. The chest is symmetric and there is no accessory muscle use. ABDOMEN: The abdomen is soft and nontender with normal active bowel sounds. There is no palpable mass or hepatosplenomegaly. There is no bruit over the large vessels of the abdomen. tenderness on palpation in LLQ and suprapubic region. EXTREMITIES: Peripheral pulses are palpable at radial and dorsalis pedis bilaterally. locations and symmetric. No clubbing appreciated in fingernails. His Right wrist and dorsum hand are swollen compared to L side; his R ankle is not erythematous like yesterday; however still swollen compared to the L side. SKIN: The skin is cool and dry. No jaundice or rashes seen. There are some scattered petechia in bilateral legs and abdomen appreciated. IMAGING: MRI w/o followed by with of bilateral shoulders and R ankle- pending MICROBIOLOGY: 01/10/21 Respiratory viral panel - negative 01/10/21 Urine culture - S. aureus positive 01/16/21 Urine culture - pending 01/16/21 Preliminary blood culture (03/24) - S. aureus positive 01/16/21 Preliminary blood culture (/) - S. aureus positive 01/16/21 Preliminary blood culture gram stain - Gram positive cocci in clusters 01/16/21 Stool occult blood - positive 01/17/21 Sputum gram stain - few WBCs, few epithelial cells, many yeast like organism, moderate gram positive cocci, few gram negative rods 01/17/21 Sputum culture - Prelim shows heavy yeast like organism 01/17/21 Blood culture (1/2) - prelim 1st set shows gram pos cocci in clusters 01/17/21 Blood culture (2/) - pending 01/18 blood culture x2 pending IMPRESSION AND PLAN: Sepsis likely 2/2 Staph aureus bacteremia Blood cultures show MSSA staph aureus bacteremia. With this culture finding, our threshold to further evaluate for other subclinical sites of metastatic infection is low and he will need further workup including ECHO to evaluate for the presence endocarditis. ECHO is pending currently; however, would still consider ordering an JUVENCIO on Thursday b/c theres better sensitivity of detecting vegetations compared to ECHO, as our suscipicion is still high for endocarditis given his CT findings of increased density abutting pleura bilaterally compared to his imaging on 01/10. This is highly suspicious of septic emboli from endocarditis. Patient denies any history of IV drug use. Will D/C vancomycin and continue with naficillin (Day 2). 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 Would avoid toradol or NSAIDs for pain, however due to GIB. Shoulder pain and ankle pain patient initially presented with hyeralgesia with pronounced pain in bilateral shoulders and R medial malleolus. Given patient's MSSA bacteremia, there's a high suspicion that this is a MSK complication of Infective endocaridtis and possible multifocal septic arthritis given his erythematous, swollen, painful and warm multiple joints. This may be a subacute bacterial endocarditis given the timing of his hospital course and the presentation of arthritis can be asymmetrical and can affect up to 3 joints. We will obtain MRI w/o followed by with of his shoulders and ankle. If positive findings, will consult orthopedic surgery. Possible roopa esophagitis Pt underwent an EGD today per gen surgery due to drops in H/H and found to have possible roopa esophagitis. Patient is not immunocompromised and is HIV negative and this differential is less likely, as patient also does not have any signs of thrush on exam. Its noted that a biopsy was not taken or sent for pathology for confirmation. VS, I&O, 24H, Fishbone Vital Signs/I&O Vital Signs Date Time Temp Pulse Resp B/P (MAP) Pulse Ox O2 Delivery O2 Flow Rate FiO2 01/18/21 14:15 20 01/18/21 12:00 98.3 81 125/62 (83) 95 Room Air 01/18/21 07:10 3.0 I&O- Last 24 Hours up to 6 AM 01/18/21 06:00 Intake Total 5706 ml Balance 5706 ml Laboratory Data 24H LABS Laboratory Tests 2 01/17/21 17:01: Nucleated Red Blood Cells % (auto) 0.0, Immature Platelet Fraction 8.4, Anion Gap 8, Glomerular Filtration Rate > 60.0, Calcium Level 6.5L 01/18/21 02:01: Nucleated Red Blood Cells % (auto) 0.0, Phosphorus Level 3.0, 25-Hydroxy Vitamin D Total 28.6L, Parathyroid Hormone (Intact) 38.5, Vancomycin Level Trough 9.7L, HIV Antigen/Antibody Combo Qual NEGATIVE 01/18/21 10:35: Nucleated Red Blood Cells % (auto) 0.0, Anion Gap 4L, Glomerular Filtration Rate > 60.0, Calcium Level 7.0L, Magnesium Level 3.8H CBC/BMP Laboratory Tests 01/17/21 17:01 01/18/21 02:01 01/18/21 10:35 Microbiology Microbiology 01/18/21 Blood Culture, Received Pending 01/18/21 Blood Culture, Received Pending 01/17/21 Blood Culture - Preliminary, Resulted No growth after 24 hours . All specim... 01/17/21 Blood Culture - Preliminary, Resulted 01/17/21 Gram Stain - Final, Resulted 01/17/21 Sputum Culture - Preliminary, Resulted Yeast Like Organism 01/16/21 Stool Occult Blood (JONATHAN) - Final, Complete 01/16/21 Blood Culture - Preliminary, Resulted Staphylococcus Aureus 01/16/21 Urine Culture - Final, Complete Staphylococcus Aureus 01/16/21 Blood Culture - Final, Complete Staphylococcus Aureus 01/16/21 Blood Culture - Final, Complete Staphylococcus Aureus GME ATTESTATION GME ATTESTATION My faculty preceptor for this patient encounter was physically present during the encounter and was fully available. All aspects of the patient interview, examination, medical decision making process, and medical care plan development were reviewed and approved by the faculty preceptor. The faculty preceptor is a perez and concurs with the plan as stated in the body of this note and will attest to such by his/her cosignature. Shanda Salinas DO Jan 18, 2021 15:33
--- NOTE | 2021-01-18 16:08 | IPNPDOC ---
Text Note Date of Service The patient was seen on 01/18/21. NOTE Subjective: Patient is a 55-year-old male presented to the emergency department feeling ill and was found to have a GI bleed. Patient went for an EGD today and was found to have a duodenal ulcer that was no longer bleeding but had sequela of bleeding. Dr. Kate of general surgery called me earlier today stating that there was a clot formed over the top of the ulcer. Patient also appeared to have possible candidal esophagitis. Patient said he is feeling better although he is still having some pain throughout his body but this is more tolerable. Patient is complaining of some leg swelling. Review of systems: General: Patient denies fevers HEENT: Patient denies headaches Cardiovascular: Patient denies chest pain Respiratory: Patient denies shortness of breath, cough GI: Patient reports decreased but still present abdominal pain. Patient also reports decreased bloody bowel movements with these are still present as well. : Patient denies increased frequency or pain with urination Extremities: Patient reports leg swelling as above Neurological: Patient denies numbness or tingling in legs Physical exam: Vitals: See below General: Alert and oriented male patient who was laying in bed when I walked in. Patient not appear to be in any acute distress. HEENT: Normocephalic, atraumatic, moist mucous membranes. Neck: No lymphadenopathy or thyromegaly Cardiac: Regular rate and rhythm, 1/6 murmur heard loudest over the fourth intercostal space left sternal border, normal S1, normal S2 Pulm: Clear to auscultation bilaterally. No wheezes, rhonchi, rales Abd: Nondistended, nontender to palpation, normal bowel sounds Ext: Edema around bilateral ankles worse on the right, no rashes on the lower extremity Labs: See below Imaging: Vascular ultrasound of the lower extremity veins performed on the right side on 01/18/2021 was reported to show there is no ultrasonic evidence of DVT involving any of the visualized deep venous structure of the right lower extremity. Echocardiogram performed on 01/17/2021 was reported to show sinus tachycardia with left bundle branch block. Somewhat challenging study but diagnostically useful information was obtained. Mild left ventricular hypertrophy with septal and apical wall motion abnormality due to left bundle branch block, yet preserved global resting systolic function. Slightly dilated left atrium with grade 1 left ventricular diastolic dysfunction but currently normal estimated mean left atrial pressure. Normal right heart chamber sizes and motion with Doppler signs that suggest moderate pulmonary hypertension. Normal IVC size and collapse against an elevated central venous pressure at this time. Normal aortic dimensions. Hard to visualize precisely the aortic valve structure however, there was no functional valvular abnormality. Normal-appearing mitral valvular apparatus and leaflet excursion with no posterior systolic buckling. Only trace physiologic insufficiency. Normal-appearing tricuspid valve with very mild insufficiency (physiologic). Minuscule pericardial effusion circu mferentially with out evidence of cardiac chamber compression. No apparent intracardiac mass. Assessment/plan: 55-year-old male presented to hospital feeling ill was diagnosed with possible pneumonia as well as hyponatremia who started having gastrointestinal bleeding was found to be anemic due to acute blood loss anemia. 1. Acute blood loss anemia secondary to gastrointestinal bleeding. General surgery has been consulted and patient received a total of 6 units of packed red blood cells and 1 unit of FFP. Patient had a bleeding duodenal ulcer according EGD. Patient will continue to have every 6 hours CBCs to continue to monitor the patient's hemoglobin however, last hemoglobin was stable and did not require any transfusions throughout the day today. Patient is still having bloody stools however, I do expect this to continue even though the bleeding has been stopped as the blood had already been entered the GI system. The bloody bowel movements have slowed down from yesterday. We will continue to monitor. Patient will continue with IV Protonix, n.p.o. diet, and Carafate. 2. Staph aureus bacteremia. This is MSSA. Patient has been changed to nafcillin. Vancomycin has been discontinued. Echocardiogram does not show vegetation. Patient will need JUVENCIO performed on Thursday. Patient remained in the hospital on nafcillin. Patient's blood cultures from yesterday did come back positive for gram-positive cocci in clusters. Patient had repeat blood cultures today. 3. Hyponatremia. Patient's sodium level is now back within the normal range and we will continue to monitor. 4. Candidal esophagitis. EGD saw what looked like candidal esophagitis. Nystatin swish and swallow has been added. 5. Transaminitis. Mild elevation in AST. Hepatitis B, C and HIV have been negative. 6. Total body pain. Continue with IV morphine at this time. There is secondary to patient's possible endocarditis. 7. Thrombocytopenia. Patient count slowly improved. Continue to monitor. DVT Prophylaxis: Mechanical due to GI bleeding Disposition: Pending clinical improvement VS,Fitobone, I+O VS, Fitobone, I+O Laboratory Tests 01/17/21 17:01 01/18/21 02:01 01/18/21 10:35 Vital Signs Date Time Temp Pulse Resp B/P (MAP) Pulse Ox O2 Delivery O2 Flow Rate FiO2 01/18/21 14:15 20 01/18/21 12:00 98.3 81 125/62 (83) 95 Room Air 01/18/21 07:10 3.0 I&O- Last 24 Hours up to 6 AM 01/18/21 06:00 Intake Total 5706 ml Balance 5706 ml SURAJ CAMPBELL DO Jan 18, 2021 16:08
[2021-01-18 17:39] LABS: HEMATOCRIT 21.7 % (42.0-52.0); HEMOGLOBIN 7.7 g/dl (13.5-17.5); MEAN CORPUSCULAR HEMOGLOBIN 30.1 pg (27.0-33.0); MEAN CORPUSCULAR HGB CONC 35.5 g/dl (32.0-36.5); MEAN CORPUSCULAR VOLUME 84.8 fl (80.0-96.0); PLATELET COUNT, AUTOMATED 140 10^3/uL (150-450); RED BLOOD COUNT 2.56 10^6/uL (4.30-6.10); WHITE BLOOD COUNT 16.7 10^3/uL (4.0-10.0)
[2021-01-18] MEDS: NYSTATIN 500,000 U/5 ML SUSP UDC SS SCH ×2 (18:17→23:49)
[2021-01-18] MEDS ORDERED: PROHANCE 279.3MG/ML 15ML VIAL As Ordered ONE (20:08)
--- NOTE | 2021-01-18 21:22 | REPVR ---
PROCEDURE INFORMATION: Exam: MR Right Lower Extremity Joint Without and With Contrast; Ankle Exam date and time: 01/18/2021 7:53 PM Age: 55 years old Clinical indication: Condition or disease; Other: Septic arthritis; Right; Additional info: S aeurus bacteremia R/O septic arthritis TECHNIQUE: Imaging protocol: MR of the Right lower extremity without and with contrast. Exam focused on the ankle. Contrast material: PROHANCE; Contrast volume: 15 ml; Contrast route: INTRAVENOUS (IV); COMPARISON: US Duplex, Ext,LOWER veins,unilat RIGHT 01/18/2021 2:25 PM FINDINGS: Bones and cartilage: Unremarkable. Joint spaces: Small ankle joint effusion. No evidence of synovial enhancement. LIGAMENTS: Distal tibiofibular syndesmosis: Unremarkable. No tear. Anterior talofibular ligament: Unremarkable. No tear. Posterior talofibular ligament: Unremarkable. No tear. Calcaneofibular ligament: Unremarkable. No tear. Deltoid ligament complex: Unremarkable. No tear. TENDONS: Flexor tendons of foot: Unremarkable as visualized. Tibialis posterior tendon: Unremarkable as visualized. Peroneal tendons: Unremarkable as visualized. Extensor tendons of foot: Unremarkable as visualized. Tibialis anterior tendon: Unremarkable as visualized. Achilles tendon: Unremarkable as visualized. Tarsal canal (Sinus tarsi): Unremarkable. Normal signal of the fat. Tarsal tunnel: Unremarkable. Muscles: Unremarkable. Soft tissues: Marked subcutaneous edema demonstrated in the ankle and dorsal foot. No well-defined abscess demonstrated. There is enhancement demonstrated in the edematous soft tissues in the anterior ankle and proximal dorsal foot suggesting infection including cellulitis. Inflammation surrounds the extensor digitorum longus tendon which demonstrates enhancement on post gadolinium imaging. No gross fluid in the tendon sheath. Findings suggest inflammatory tenosynovitis including an infectious tenosynovitis. Plantar fascia: Plantar fascia is unremarkable. IMPRESSION: 1. Marked subcutaneous edema demonstrated in the ankle and dorsal foot. No well-defined abscess demonstrated. There is enhancement demonstrated in the edematous soft tissues in the anterior ankle and proximal dorsal foot suggesting infection including cellulitis. 2. Small ankle joint effusion. No evidence of synovial enhancement. 3. Inflammation surrounds the extensor digitorum longus tendon which demonstrates enhancement on post gadolinium imaging. No gross fluid in the tendon sheath. Findings suggest inflammatory tenosynovitis including an infectious tenosynovitis. Electronically signed by: Ant Schmidt On 01/18/2021 21:22:19 PM
--- NOTE | 2021-01-18 21:29 | REPVR ---
PROCEDURE INFORMATION: Exam: MR Right Upper Extremity Joint Without and With Contrast; Shoulder Exam date and time: 01/18/2021 7:53 PM Age: 55 years old Clinical indication: Other: Septic arthritis; Additional info: S aeurus bacteremia R/O septic arthritis TECHNIQUE: Imaging protocol: MR of the Right upper extremity without and with contrast. Exam focused on the shoulder. Contrast material: PROHANCE; Contrast volume: 15 ml; Contrast route: INTRAVENOUS (IV); COMPARISON: CT ANGIO CHEST 01/10/2021 8:59 PM FINDINGS: Bones and cartilage: Cystic degenerative changes demonstrated in the posterosuperior humeral head. Joint spaces: Degenerative changes in the acromioclavicular joint with a small amount of joint fluid. Enhancement of the fluid consistent with intra-articular infection. Enhancing fluid demonstrated in the elbow joint consistent with septic arthritis. Glenoid labrum: Unremarkable. No evidence of tear. Bursae: Enhancing fluid demonstrated in the subacromial subdeltoid bursa consistent with infectious bursitis. Supraspinatus tendon: Increased signal demonstrated in the supraspinatus tendon consistent with tendinosis. No evidence of a tear. Infraspinatus tendon: Unremarkable. No evidence of tear. Subscapularis tendon: Unremarkable. No evidence of tear. Teres minor tendon: Unremarkable. No evidence of tear. Tendon of biceps brachii: Unremarkable. No evidence of tear. Glenohumeral ligaments: Unremarkable. Muscles: Unremarkable. Soft tissues: Subcutaneous edema demonstrated in the right shoulder demonstrates modest enhancement extending into the sub adjacent musculature in the shoulder girdle consistent with subcutaneous infection and infectious myositis. IMPRESSION: 1. Degenerative changes in the acromioclavicular joint with a small amount of joint fluid. Enhancement of the fluid consistent with intra-articular infection. 2. Increased signal demonstrated in the supraspinatus tendon consistent with tendinosis. No evidence of a tear. 3. Enhancing fluid demonstrated in the subacromial subdeltoid bursa consistent with infectious bursitis. 4. Enhancing fluid demonstrated in the elbow joint consistent with septic arthritis. 5. Subcutaneous edema demonstrated in the right shoulder demonstrates modest enhancement extending into the sub adjacent musculature in the shoulder girdle consistent with subcutaneous infection and infectious myositis. Electronically signed by: Ant Schmidt On 01/18/2021 21:29:16 PM
--- NOTE | 2021-01-18 21:36 | REPVR ---
PROCEDURE INFORMATION: Exam: MR Left Upper Extremity Joint Without and With Contrast; Shoulder Exam date and time: 01/18/2021 7:54 PM Age: 55 years old Clinical indication: Other: Septic arthritis; Additional info: R/O septic arthritis TECHNIQUE: Imaging protocol: MR of the Left upper extremity without and with contrast. Exam focused on the shoulder. Contrast material: PROHANCE; Contrast volume: 15 ml; Contrast route: INTRAVENOUS (IV); COMPARISON: CT ANGIO CHEST 01/10/2021 8:59 PM FINDINGS: Bones and cartilage: Unremarkable. Joint spaces: Degenerative changes in the acromioclavicular joint with enhancing fluid demonstrated consistent with septic arthritis. Small joint effusion demonstrated in the glenohumeral joint demonstrating enhancement of the synovium on post-contrast imaging consistent with septic arthritis. Degenerative changes in the glenohumeral joint. Glenoid labrum: Unremarkable. No evidence of tear. Bursae: Minimal fluid in the subacromial subdeltoid bursa demonstrating enhancement consistent with septic bursitis. Supraspinatus tendon: Unremarkable. No evidence of tear. Infraspinatus tendon: Unremarkable. No evidence of tear. Subscapularis tendon: Unremarkable. No evidence of tear. Teres minor tendon: Unremarkable. No evidence of tear. Tendon of biceps brachii: Unremarkable. No evidence of tear. Glenohumeral ligaments: Unremarkable. Muscles: Unremarkable. Soft tissues: Edema and enhancement of soft tissues on dorsal aspect of the shoulder. Findings consistent with acute inflammation and possible soft tissue infection. No well-defined abscess demonstrated. IMPRESSION: 1. Degenerative changes in the acromioclavicular joint with enhancing fluid demonstrated consistent with septic arthritis. 2. Small joint effusion demonstrated in the glenohumeral joint demonstrating enhancement of the synovium on post-contrast imaging consistent with septic arthritis. 3. Edema and enhancement of soft tissues on dorsal aspect of the shoulder. Findings consistent with acute inflammation and possible soft tissue infection. No well-defined abscess demonstrated. 4. Minimal fluid in the subacromial subdeltoid bursa demonstrating enhancement consistent with septic bursitis. Electronically signed by: Ant Schmidt On 01/18/2021 21:35:54 PM
--- NOTE | 2021-01-18 21:38 | REPVR ---
PROCEDURE INFORMATION: Exam: US Duplex Right Upper Extremity Veins, Limited Exam date and time: 01/18/2021 9:21 PM Age: 55 years old Clinical indication: Pain; Arm, upper and arm, lower; Right; Additional info: Swelling TECHNIQUE: Imaging protocol: Real-time Duplex ultrasound of the Right Upper Extremity with 2-D barajas scale, color Doppler flow and spectral waveform analysis with image documentation. Limited exam focused on the right upper extremity veins. COMPARISON: MRI SHOULDER WITHOUT FOL BY TESHA RIGHT 01/18/2021 6:32 PM FINDINGS: Right deep veins: Unremarkable. Axillary and brachial veins are patent throughout without thrombus. Normal Doppler waveforms. Normal compressibility and/or augmentation response. Visualized internal jugular and subclavian veins are patent. Right superficial veins: Distal basilic vein is thrombosed. Proximal mid basilic vein patent. Visualized cephalic vein is patent without thrombus. Soft tissues: Unremarkable. IMPRESSION: 1. No evidence of deep vein thrombosis. 2. Thrombosis of the distal basilic vein consistent with a superficial thrombophlebitis. Remainder of the basilic and cephalic veins patent. Electronically signed by: Ant Schmidt On 01/18/2021 21:37:52 PM
[2021-01-18 22:34] LABS: HEMATOCRIT 24.6 % (42.0-52.0); HEMOGLOBIN 8.4 g/dl (13.5-17.5); MEAN CORPUSCULAR HEMOGLOBIN 29.9 pg (27.0-33.0); MEAN CORPUSCULAR HGB CONC 34.1 g/dl (32.0-36.5); MEAN CORPUSCULAR VOLUME 87.5 fl (80.0-96.0); PLATELET COUNT, AUTOMATED 157 10^3/uL (150-450); RED BLOOD COUNT 2.81 10^6/uL (4.30-6.10); WHITE BLOOD COUNT 16.8 10^3/uL (4.0-10.0)
[2021-01-19] VITALS (9 sets, daily range): BP systolic 125–144; BP diastolic 58–67
[2021-01-19] MEDS: NAFCILLIN SOD 2 GM in D5W MINI-BAG PLUS 50 ML IV SCH ×6 (02:44→23:28)
[2021-01-19 05:08] LABS: HEMATOCRIT 21.1 % (42.0-52.0); HEMOGLOBIN 7.1 g/dl (13.5-17.5); MEAN CORPUSCULAR HEMOGLOBIN 29.6 pg (27.0-33.0); MEAN CORPUSCULAR HGB CONC 33.6 g/dl (32.0-36.5); MEAN CORPUSCULAR VOLUME 87.9 fl (80.0-96.0); PLATELET COUNT, AUTOMATED 147 10^3/uL (150-450)
[2021-01-19 05:33] LABS: BLOOD UREA NITROGEN 22 MG/DL (7-18); CALCIUM LEVEL 6.8 MG/DL (8.5-10.1); CARBON DIOXIDE LEVEL 27 MEQ/L (21-32); CHLORIDE LEVEL 99 MEQ/L (98-107); GLOMERULAR FILTRATION RATE > 60.0 (>56); GLUCOSE, FASTING 102 MG/DL (70-100); MAGNESIUM LEVEL 2.5 MG/DL (1.8-2.4); POTASSIUM SERUM 4.6 MEQ/L (3.5-5.1); SODIUM LEVEL 132 MEQ/L (136-145)
[2021-01-19] MEDS: NYSTATIN 500,000 U/5 ML SUSP UDC SS SCH ×3 (06:00→18:41)
[2021-01-19] MEDS: MORPHINE 2 MG/ML 1ML VIAL (J2270) IV PRN ×3 (06:12→20:30)
[2021-01-19] MEDS: SUCRALFATE SUSP 1GM/10ML UD PO SCH ×4 (08:43→20:22)
[2021-01-19] MEDS: PANTOPRAZOLE 40MG VIAL (C9113 PER 1) IV SCH ×2 (08:43→20:30)
--- NOTE | 2021-01-19 11:26 | IPNPDOC ---
Text Note Date of Service The patient was seen on 01/19/21. NOTE Subjective: Patient is a 55-year-old male who presented to the emergency dep artment feeling ill was found to have a GI bleed. Patient underwent EGD yesterday found to have a duodenal ulcer that was no longer bleeding but did have a clot on the ulcer. Patient also appear to have possible candidal esophagitis with pseudomembranes. Patient states he is feeling better although he is still having some shoulder pain. Patient is very hungry and is asking for something to eat. Patient states the abdominal pain has resolved at this time. Patient says that his bowel movements have turned brown and are no longer red. Patient's bowel movements have also slowed down. Review of systems: General: Patient denies fevers HEENT: Patient denies headaches Cardiovascular: Patient denies chest pain Respiratory: Patient denies shortness of breath, cough GI: Patient reports improvement in his abdominal pain. : Patient denies increased frequency or pain with urination Extremities: Patient reports pain in his shoulders and ankle. Neurological: Patient denies numbness or tingling in legs Physical exam: Vitals: See below General: Alert and oriented male patient who was laying in bed when I walked in. Patient did not appear to be in any acute distress. HEENT: Normocephalic, atraumatic, moist mucous membranes. Neck: No lymphadenopathy or thyromegaly Cardiac: Regular rate and rhythm, 1/6 systolic murmur heard loudest over the fourth intercostal space in the left sternal border, normal S1, normal S2 Pulm: Clear to auscultation bilaterally. No wheezes, rhonchi, rales Abd: Nondistended, nontender to palpation, normal bowel sounds Ext: Pain to palpation of bilateral shoulders and ankle. Patient also has swelling in his right upper and right lower extremity more so than the left side. Labs: See below Imaging: MRI of the ankle with out followed by with contrast on 01/18/2021 was reported to show marked subcutaneous edema demonstrated in the ankle and dorsal foot. No well-defined abscess demonstrated. There is enhancement demonstrated in the edematous soft tissues in the anterior ankle and proximal dorsal foot suggesting infection including cellulitis. Small ankle joint effusion. No evidence of synovial enhancement. Inflammation surrounds the extensor digitorum longus tendon which demonstrates enhancement on post gadolinium imaging. No gross fluid in the tendon sheath. Findings may suggest inflammatory tenosynovitis including an infectious tenosynovitis. MRI of the right shoulder without followed by with contrast on 01/18/2021 was reported to show degenerative changes in the acromioclavicular joint with a small amount of joint fluid. Enhancement of the fluid consistent with intra- articular infection. Increased signal demonstrated in the supraspinatus tendon consistent with tendinosis. No evidence of tear. Enhancing fluid demonstrated in the subacromial subdeltoid bursa consistent with infection bursitis. Enhancing fluid demonstrated in the elbow joint consistent with septic arthritis. Subcutaneous edema demonstrated in the right shoulder demonstrates modest enhancement extending to the subadjacent musculature in the shoulder gi rdle consistent with subcutaneous infection and infectious myositis. Vascular ultrasound of the right upper extremity performed on 01/18/2021 is reported to show no evidence of DVT. Thrombosis of the distal basilic vein consistent with a superficial thrombophlebitis. Remainder of the basilic and cephalic veins patent Assessment/plan: 55-year-old male presented to hospital feeling ill diagnosed positive pneumonia as well hyponatremia started having GI bleeding who was found to have blood cul tures positive for MSSA. 1. Acute blood loss anemia secondary gastrointestinal bleeding. Patient's hemoglobin has remained stable but was 7.1 this morning. Patient was feeling hungry and his bowel movements have slowed down and are now no longer red but more of a normal brown color. Patient's diet will be advanced to clear liquids. We will continue to monitor the patient's hemoglobin every 6 hours and transfuse if the hemoglobin is less than 7. Patient has received a total of 6 units so far and a unit of FFP. Continue IV Protonix and Carafate. 2. Staph aureus bacteremia. This is MSSA. Patient will be continued on nafcillin every 4 hours. Vancomycin discontinued. Echocardiogram done transthoracic does not show vegetation. JUVENCIO will be performed Thursday. Remain in the hospital nafcillin. Blood cultures from yesterday are negative x24 hours. We will continue to monitor. 3. Possible septic arthritis. Patient's MRI shows possible septic arthritis in the AC joint and right elbow. Dr. Shi of orthopedic surgery will attempt to aspirate the AC joints bilaterally and the right ankle joint either later today or tomorrow. Patient may need an AC joint washout performed tomorrow as the patient will be made n.p.o. after midnight today. 4. Hyponatremia. Patient sodium levels are mildly low today. We will continue to monitor. Patient will be on a clear liquid diet. 5. Candidal esophagitis. EGD saw pseudomembranous inflammation in the distal esophagus. Nystatin swish and swallow has been added. 6. Transaminitis. Mild elevation of AST. Hepatitis B hepatitis C and HIV have been negative. 7. Total body pain. Continues IV morphine at this time. Secondary to possible septic arthritis and/or possible endocarditis. 8. Thrombocytopenia. Slowly improved. Continue to monitor. DVT Prophylaxis: Mechanical due to GI bleeding Disposition: Pending clinical improvement VS,Goldy, I+O VS, Goldy, I+O Laboratory Tests 01/18/21 17:26 01/18/21 22:26 01/19/21 04:51 Vital Signs Date Time Temp Pulse Resp B/P (MAP) Pulse Ox O2 Delivery O2 Flow Rate FiO2 01/19/21 08:00 98.2 79 19 139/63 (88) 96 Room Air 01/18/21 07:10 3.0 I&O- Last 24 Hours up to 6 AM 01/19/21 06:00 Intake Total 3920 ml Output Total 1400 ml Balance 2520 ml SURAJ CAMPBELL DO Jan 19, 2021 11:26
--- NOTE | 2021-01-19 12:50 | CR ---
CONSULTATION DATE: 01/19/2021 TIME: 11 a.m. CONSULTING SERVICE: Orthopedic surgery. CONSULTING PHYSICIAN: Maciej Shi MD HISTORY OF PRESENT ILLNESS: This is a 55-year-old male with concern for bilateral acromioclavicular septic joint and possible right tibiotalar septic joint. The patient has a complicated medical history to include Staph aureus bacteremia. The patient describes tenderness to palpation at his bilateral AC joints and mild pain with weightbearing of the right ankle. The patient's complaints started on the December, where he presented with fever of 102.5. The patient is a medical marijuana user. However, he has also attempted Ibuprofen for his musculoskeletal pain without improvement. The patient does have elevated labs of white blood cell count 12.2 and CRP of 19.3. The patient did have a previous urine culture which was positive for Staph aureus. The patient also had history of pneumonia. Orthopedic surgery was consulted for further evaluation and treatment of his bilateral right worse than left AC joint pain concerning for septic joint as well as potential concerns for right septic ankle joint. PAST MEDICAL HISTORY: Includes chronic back pain, previous carpal tunnel syndrome. PAST SURGICAL HISTORY: Includes two lower back surgeries in 1985 and 2000 and right hand carpal tunnel release in 2006. FAMILY HISTORY: Unknown. SOCIAL HISTORY: , lives in a mobile home with two sons. Currently disabled due to back pain. 45 pack year history, however, the patient stopped smoking 4 days prior. Previous alcohol use. Marijuana for medical use. The patient denies IV drug use. ALLERGIES: LATEX RASH. CURRENT MEDICATIONS: Please see internal medicine list. REVIEW OF SYSTEMS: 14-point review of systems is negative unless otherwise described in the HPI above. PHYSICAL EXAMINATION: Alert and oriented to person, time and place. The patient had significant tenderness to palpation about the right worse than left AC joints which is about 7/10 pain. I did not appreciate any effusion from the AC joint, however, this can be difficult to determine clinically as the capsule is very tight on AC joint. There is no erythema or edema overlying the AC joint and it did not appear to have any cellulitic changes of the skin overlying the right or left AC joints. For bilateral upper extremities he was neurovascularly intact. Bilateral upper extremities he had 5/5 motor strength to the musculocutaneous, axillary, radial, median and ulnar nerves. Sensation was intact to light touch musculocutaneous, axillary, radial, median and ulnar nerve distributions of his bilateral upper extremities. The patient had forward flexion of the left shoulder from 0 to 160 degrees and the right shoulder was from 0 to approximately 110 degrees. He had palpable radial and ulnar pulse bilaterally with brisk cap refill to the bilateral upper extremities. Radiographs: None. MRI: Right shoulder MRI demonstrated some mild effusion to the right AC joint which could be indicative of either AC joint arthrosis plus/minus septic joint, no appreciable glenohumeral effusion appreciated which is significant. There did not appear to be any myositis of the musculature of the right shoulder. Left shoulder, very similar to the right. He had effusion of the left AC joint; however, it is indeterminate of the acromioclavicular joint arthrosis or septic AC joint. There is no significant effusion of the left glenohumeral joint. His right ankle MRI appeared to be normal. There was no increased joint fluid relative to normal MRI of ankle despite the radiologist read. IMPRESSION: At this point in time the patient is being worked up for right versus left AC septic joint. He is also being worked up for possible right ankle septic joint. However, this is less concerning given the fact that he is able to ambulate on his right lower extremity. PLAN: At this point in time I would like to trend the patient for the next 24 hours to determine if the patient's bilateral AC joint pain improves. I would also like to trend his ankle and see if his right ankle pain is increased. Will get labs on 24 hour basis to trend the progression of his systemic infection of the possible bilateral AC joints and right ankle. Within the next 12-24 hours I plan to aspirate the bilateral AC joints and right ankle. AC joint is a notorious joint for aspiration and if this is really a septic joint the additional time will allow the fluid collection to become larger would be easier to aspirate. After yielding bilateral AC joint aspirations and right ankle aspiration it will be easier to determine based on his synovial white blood cell count as well as cultures if a surgical irrigation and debridement of the bilateral AC joints is indicated. The same holds true for the right ankle. I will continue to closely follow this patient in order to further assess the suspected diagnosis of bilateral AC septic joints and right ankle septic joint.
[2021-01-19 13:35] LABS: HEMOGLOBIN 7.1 g/dl (13.5-17.5); MEAN CORPUSCULAR HEMOGLOBIN 30.3 pg (27.0-33.0); MEAN CORPUSCULAR HGB CONC 34.1 g/dl (32.0-36.5); MEAN CORPUSCULAR VOLUME 88.9 fl (80.0-96.0); PLATELET COUNT, AUTOMATED 158 10^3/uL (150-450); RED BLOOD COUNT 2.34 10^6/uL (4.30-6.10); WHITE BLOOD COUNT 13.8 10^3/uL (4.0-10.0)
[2021-01-19 13:49] LABS: HEMATOCRIT 20.8 % (42.0-52.0)
--- NOTE | 2021-01-19 14:15 | IPN ---
PROGRESS NOTE DATE: 01/19/2021 HISTORY: Patient was admitted on January 16 with a history of feeling ill at home. He was diagnosed with pneumonia and admitted by the hospitalist. Overnight on January 16 into January 17 he apparently had several bloody bowel movements and has continued to have significant output of dark bloody stool since. He underwent an esophagogastroduodenoscopy (EGD) by Dr. Kate on January 18 that identified a duodenal ulcer with an adherent clot. He has so far received a total of 6 units of packed red blood cells and 1 unit of fresh frozen plasma (FFP). He reports that overnight his bowel movements have largely resolved with his most recent bowel movement reported at about 6 o'clock this morning with a liquid consistency and a brown color. Vital signs show that he has been afebrile over the past 24 hours. His pulse is in the 70s and 80s today. His blood pressure is good with a normal room air oxygen saturation. Intake and output show that yesterday he had 4300 mL in with 1600 of oral fluids. He had 800 mL of stool recorded with no recording of his urine output. PHYSICAL EXAMINATION: Patient is lying quietly on the hospital bed. He is alert and oriented. He denies any abdominal pain. He reports that his bowel movements are significantly reduced in number. He has had no nausea or vomiting. His abdomen is soft and nontender without appreciable mass. LABORATORY STUDIES: This morning patient had a CBC showing a white count 15, hemoglobin 7, hematocrit 21, and platelet count 147,000. His most recent transfusion was 2 units of packed red blood cells yesterday morning. His chemistries this morning showed a sodium of 132, potassium 4.6, chloride 99, CO2 of 27, BUN 22, creatinine 0.7, and a glucose 102. IMPRESSION: Patient has a hematocrit that is fairly stable from yesterday. He had only one bowel movement early this morning, which was described as brown rather than bloody. His hematocrit does remain low at 21 this morning. Certainly he is at risk for rebleeding given the finding of an ulcer with adherent clot, but he does not appear to be bleeding actively at this time. RECOMMENDATIONS: I would continue to monitor closely for evidence of rebleeding. He should be transfused as necessary to maintain an acceptable hemoglobin and hematocrit. General surgery will continue to follow and consider repeat endoscopy if there is evidence for ongoing bleeding. [facility]
[2021-01-19] MEDS: ACETAMINOPHEN TAB 650MG DOSE (2X325MG) PO PRN ×2 (16:58→22:26)
--- NOTE | 2021-01-19 17:06 | ECGEPIP ---
[facility] Test Date: 2021-01-16 Pat Name: MINA NARANJO Department: Room: [place] [address] Gender: Male Services Tech: PAULO : 1965 Requested By: SINDY Miller Order Number: [id number] Reading MD: Samir Logan Measurements Intervals [place] Rate: 117 P: 51 RI: 142 QRS: -19 QRSD: 160 T: 104 QT: 366 QTc: 510 Interpretive Statements Sinus tachycardia Left bundle branch block Compared to prior tracings in the system No remarkable changes but now slower heart rate Electronically Signed on 01-19-2021 17:06:16 EDT by Samir Logan
[2021-01-19 18:22] LABS: MEAN CORPUSCULAR HEMOGLOBIN 30.2 pg (27.0-33.0); MEAN CORPUSCULAR HGB CONC 34.2 g/dl (32.0-36.5); MEAN CORPUSCULAR VOLUME 88.4 fl (80.0-96.0); PLATELET COUNT, AUTOMATED 159 10^3/uL (150-450); RED BLOOD COUNT 2.15 10^6/uL (4.30-6.10); WHITE BLOOD COUNT 12.3 10^3/uL (4.0-10.0)
[2021-01-19 18:31] LABS: HEMOGLOBIN 6.5 g/dl (13.5-17.5)
[2021-01-19 18:45] LABS: BLOOD UREA NITROGEN 14 MG/DL (7-18); CALCIUM LEVEL 6.3 MG/DL (8.5-10.1); CARBON DIOXIDE LEVEL 25 MEQ/L (21-32); CHLORIDE LEVEL 97 MEQ/L (98-107); CREATININE FOR GFR 0.87 MG/DL (0.70-1.30); GLOMERULAR FILTRATION RATE > 60.0 (>56); GLUCOSE, FASTING 136 MG/DL (70-100); POTASSIUM SERUM 3.9 MEQ/L (3.5-5.1); SODIUM LEVEL 130 MEQ/L (136-145)
[2021-01-19] MEDS ORDERED: NS 1,000 ML IV ONE (22:10)
[2021-01-20] VITALS (9 sets, daily range): BP systolic 114–172; BP diastolic 61–74
[2021-01-20] MEDS: MORPHINE 2 MG/ML 1ML VIAL (J2270) IV PRN ×4 (01:38→17:35)
[2021-01-20] MEDS: ACETAMINOPHEN TAB 650MG DOSE (2X325MG) PO PRN ×4 (02:52→19:14)
[2021-01-20] MEDS ORDERED: FUROSEMIDE 20MG/2ML VIAL (J1940) IV ONE (03:15)
[2021-01-20 03:56] LABS: CK-MB VALUE MASS < 1.0 NG/ML (<3.6); CPK CREATINE PHOSPHOKINASE 35 U/L (39-308); MB/CK RELATIVE INDEX 2.86 (< OR =4); NT-PRO BNP 1363 PG/ML (<125); TROPONIN I < 0.02 NG/ML (< 0.10)
[2021-01-20] MEDS: NAFCILLIN SOD 2 GM in D5W MINI-BAG PLUS 50 ML IV SCH ×5 (04:40→18:36)
[2021-01-20] MEDS: NYSTATIN 500,000 U/5 ML SUSP UDC SS SCH ×4 (05:17→17:34)
[2021-01-20 05:59] LABS: HEMATOCRIT 25.4 % (42.0-52.0); MEAN CORPUSCULAR HEMOGLOBIN 29.5 pg (27.0-33.0); MEAN CORPUSCULAR HGB CONC 33.5 g/dl (32.0-36.5); MEAN CORPUSCULAR VOLUME 88.2 fl (80.0-96.0); PLATELET COUNT, AUTOMATED 114 10^3/uL (150-450); RED BLOOD COUNT 2.88 10^6/uL (4.30-6.10)
[2021-01-20 06:09] LABS: BLOOD UREA NITROGEN 10 MG/DL (7-18); CALCIUM LEVEL 6.6 MG/DL (8.5-10.1); CARBON DIOXIDE LEVEL 25 MEQ/L (21-32); CHLORIDE LEVEL 100 MEQ/L (98-107); GLOMERULAR FILTRATION RATE > 60.0 (>56); GLUCOSE, FASTING 104 MG/DL (70-100); MAGNESIUM LEVEL 2.2 MG/DL (1.8-2.4); POTASSIUM SERUM 4.5 MEQ/L (3.5-5.1); SODIUM LEVEL 130 MEQ/L (136-145)
[2021-01-20 06:17] LABS: HEMOGLOBIN 8.5 g/dl (13.5-17.5)
--- NOTE | 2021-01-20 08:03 | REPVR ---
PROCEDURE INFORMATION: Exam: US Duplex Lower Extremity Veins, Bilateral Exam date and time: 01/20/2021 6:37 AM Age: 55 years old Clinical indication: Pain; Leg, lower; Bilateral; Additional info: Fever in PT not on abx and not on anticoag dvt? TECHNIQUE: Imaging protocol: Real-time duplex ultrasound of the extremities with 2-D barajas scale, color Doppler flow and spectral waveform analysis with image documentation. Complete exam focused on the bilateral lower extremity veins. COMPARISON: US Duplex, Ext,LOWER veins,unilat RIGHT 01/18/2021 2:25 PM FINDINGS: Right deep veins: Unremarkable. The common femoral, femoral, proximal profunda femoral and popliteal veins are patent without thrombus. Normal Doppler waveforms. Normal compressibility and/or augmentation response. Right superficial veins: Saphenofemoral junction is patent without thrombus. Left deep veins: Unremarkable. The common femoral, femoral, proximal profunda femoral and popliteal veins are patent without thrombus. Normal Doppler waveforms. Normal compressibility and/or augmentation response. Left superficial veins: Saphenofemoral junction is patent without thrombus. Soft tissues: Bilateral lower extremity soft tissue edema. IMPRESSION: No evidence of deep vein thrombosis. Electronically signed by: Davon Barrientos On 01/20/2021 08:03:04 AM
[2021-01-20] MEDS: SUCRALFATE SUSP 1GM/10ML UD PO SCH ×3 (08:19→17:34)
[2021-01-20] MEDS: PANTOPRAZOLE 40MG VIAL (C9113 PER 1) IV SCH (08:19)
--- NOTE | 2021-01-20 10:34 | IPNPDOC ---
Text Note Date of Service The patient was seen on 01/20/21. NOTE Subjective: Patient is a 55-year-old male presented to emergency department feeling ill and was found to have a GI bleed. Patient underwent EGD 2 days ago which found a duodenal ulcer that had a clot on the ulcer. Patient also found to have possible candidal esophagitis with pseudomembranes. Patient was also found to have staph aureus bacteremia possibly from endocarditis however, this is not improving it. Patient states he is very tired and thirsty but was held n.p.o. for possible washout to be done due to possible septic arthritis in his shoulders. Orthopedic saw the patient yesterday. Patient states that he is no longer having bloody bowel movements and the bowel movements he has had recently have all been brown. Patient denies any abdominal pain at this time is still says his shoulders are very painful to the touch and still achy all over. Patient had also a fever overnight. Review of systems: General: Patient reports fevers HEENT: Patient denies headaches Cardiovascular: Patient denies chest pain Respiratory: Patient denies shortness of breath, cough GI: Patient denies abdominal pain, nausea, vomiting, diarrhea : Patient denies increased frequency or pain with urination Extremities: Patient reports pain in shoulders and right ankle as above Neurological: Patient denies numbness or tingling in legs Physical exam: Vitals: See below General: Alert and oriented male patient who was laying in bed. Patient did appear ill but did not appear to be in any acute distress. HEENT: Normocephalic, atraumatic, moist mucous membranes. Neck: No lymphadenopathy or thyromegaly Cardiac: Regular rate and rhythm, 1/6 systolic murmur heard loudest over the fourth intercostal space on the left sternal border, normal S1, normal S2 Pulm: Clear to auscultation bilaterally. No wheezes, rhonchi, rales Abd: Nondistended, nontender to palpation, normal bowel sounds Ext: Patient is mildly edematous in both his upper and lower extremities. This is improved from yesterday. Patient does have pain to palpation of his bilateral shoulders and his right ankle. Labs: See below Imaging: Duplex ultrasound of the lower extremities bilaterally performed on is reported to show no evidence of DVT. Assessment/plan: 55-year-old male presented to hospital feeling ill diagnosed with possible pneumonia as well as hyponatremia who started having GI bleeding was found to have bleeding duodenal ulcer who is also have blood cultures for methicillin sen sitive Staph aureus 1. Acute blood loss anemia secondary to gastrointestinal bleeding. Patient's hemoglobin did drop last evening to 6.5. Patient was transfused 2 units of blood. Patient does not appear to be bleeding again. We will continue to monitor the patient's hemoglobin. General surgery is continuing to follow the patient and I appreciate both Dr. Garcia and Dr. Kate's help treating the patient 2. Staph aureus bacteremia. This is methicillin sensitive. Continue nafcillin every 4 hours. Vancomycin has been discontinued. TTE was negative for vegetation. JUVENCIO will be performed tomorrow. Patient continues to have fevers which may be secondary to endocarditis or possible septic arthritis. Dr. Godinez is following the patient I appreciate your help treating the patient. 3. Possible septic arthritis. Patient will have arthrocentesis of his bilateral AC joint and right ankle joint performed by Dr. True pina today. If these are positive, patient may need washout performed to the operating room. Patient was held n.p.o. after midnight but was given his medications today. 4. Hyponatremia. Patient's sodium levels are mildly low today. We will continue to monitor. 5. Fevers. This is most likely secondary to the patient's Staph aureus bacteremia with possible septic arthritis. Continue the treatment as above. Continue to monitor repeat blood cultures. 6. Candidal esophagitis. Nystatin swish and swallow has been added. 7. Transaminitis. Hepatitis B, hepatitis C, and HIV were negative. This will be rechecked tomorrow. 8. Total body pain. Continue IV morphine at this time. Most likely secondary to possible septic arthritis and/or possible endocarditis. 9. Thrombocytopenia. This is slowly improving. Continue to monitor. DVT Prophylaxis: Mechanical due to GI bleeding Disposition: Pending clinical improvement VS,Goldy, I+O VS, Goldy, I+O Laboratory Tests 01/19/21 13:07 01/19/21 17:54 01/20/21 05:43 01/20/21 05:44 Vital Signs Date Time Temp Pulse Resp B/P (MAP) Pulse Ox O2 Delivery O2 Flow Rate FiO2 01/20/21 09:08 100.2 90 19 114/67 (83) 92 Room Air 01/18/21 07:10 3.0 I&O- Last 24 Hours up to 6 AM 01/20/21 06:00 Intake Total 2016 ml Output Total 2250 ml Balance -234 ml SURAJ CAMPBELL DO Jan 20, 2021 10:34
--- NOTE | 2021-01-20 11:14 | ECGEPIP ---
[facility] Test Date: 2021-01-20 Pat Name: MINA NARANJO Department: Room: [place] [address] Gender: Male Vasc Tech: : 1965 Requested By: SINDY Miller Order Number: [id number] Reading MD: Samir Logan Measurements Intervals [place] Rate: 83 P: 11 MN: 180 QRS: -8 QRSD: 162 T: 32 QT: 456 QTc: 535 Interpretive Statements Normal sinus rhythm Left bundle branch block Compared to prior tracings(4) in the system. No remarkable changes Electronically Signed on 01-20-2021 11:14:24 EDT by Samir Logan
[2021-01-20 12:11] LABS: BASO # 0.1 10^3/uL (0.0-0.2); BASO % 0.4 % (0.0-1.0); EOS % 0.1 % (0.0-3.0); HEMATOCRIT 26.6 % (42.0-52.0); HEMOGLOBIN 8.8 g/dl (13.5-17.5); LYMPH # 1.6 10^3/uL (1.5-5.0); LYMPH % 10.5 % (24.0-44.0); MEAN CORPUSCULAR HEMOGLOBIN 28.9 pg (27.0-33.0); MEAN CORPUSCULAR HGB CONC 33.1 g/dl (32.0-36.5); MEAN CORPUSCULAR VOLUME 87.5 fl (80.0-96.0); MONO # 0.8 10^3/uL (0.0-0.8); MONO % 5.6 % (2.0-8.0); NEUTROPHILS # 10.3 10^3/uL (1.5-8.5); NEUTROPHILS % 70.1 % (36.0-66.0); PLATELET COUNT, AUTOMATED 171 10^3/uL (150-450); RED BLOOD COUNT 3.04 10^6/uL (4.30-6.10); WHITE BLOOD COUNT 14.8 10^3/uL (4.0-10.0)
[2021-01-20 13:59] LABS: SOURCE, BODY FLUID RT SHOULDER; SYNOVIAL FLUID COLOR RED (COLORLESS)
--- NOTE | 2021-01-20 14:03 | IPN ---
PROGRESS NOTE DATE: 01/20/2021 HISTORY: The patient is a 55-year-old man who has been diagnosed with a bleeding duodenal ulcer. He also has multiple blood cultures positive for Staphylococcus aureus with several areas of significant pain in his shoulders, ankle and right elbow. He has been seen by orthopedics and apparently there is the possibility he will have an aspiration performed today. He has had no further bowel movements since yesterday and no sign of bleeding. He has been moved to [address] [place] [address] from the [place]. OBJECTIVE: Vital signs: Show that he has had intermittent temperatures up to 102.3 at 8:30 this morning. His pulse is in the 80s generally. Blood pressure is good. Intake and output shows that he had 2000 in yesterday with about 2000 out in urine and several small bowel movements. He has had no bowel movements recorded since yesterday. PHYSICAL EXAMINATION: The patient is lying quietly on the hospital bed. He still reports significant pain in his shoulders particularly on the right and his right upper extremity. He is alert and oriented. Abdomen is soft and without significant tenderness. LABORATORY STUDIES: Show that this morning his white count is 14 with a hemoglobin of 8.5, hematocrit of 25 and a platelet count of 114,000. This is after two additional units of packed red blood cells from yesterday into today. He has a chemistry profile today. It shows his sodium is slightly low at 130 and his BUN is normal at 10 where it had been somewhat elevated ever since admission until yesterday evening. IMPRESSION: The patient is not showing any evidence of further bleeding at this time. He received two units of packed red blood cells overnight and his hematocrit has risen an appropriate amount for that transfusion. He has had no bowel movements since yesterday to suggest any ongoing bleeding. His BUN has returned to normal. RECOMMENDATIONS: The patient's diet can be resumed when it is determined that he is not pending any further surgery, either by orthopedics or cardiology. There is no need for repeat endoscopy at this point. General surgery will continue to follow while we see if his bleeding has truly stopped. JESSICA
[2021-01-20 14:04] LABS: CRYSTALS, BODY FLUID NONE SEEN (NONE SEEN); SOURCE, BODY FLUID CRYSTALS RT SHOULDER
[2021-01-20 14:11] LABS: SOURCE, BODY FLUID LT SHOULDER; SYNOVIAL FLUID COLOR PALE YELLOW (COLORLESS)
[2021-01-20 14:12] LABS: SOURCE, BODY FLUID CRYSTALS QNS
[2021-01-20 14:13] LABS: CRYSTALS, BODY FLUID QNS (NONE SEEN)
[2021-01-20 14:24] LABS: CRYSTALS, BODY FLUID QNS (NONE SEEN); SOURCE, BODY FLUID CRYSTALS QNS
[2021-01-20 14:27] LABS: SOURCE, BODY FLUID RT ANKLE; SOURCE, BODY FLUID GLUCOSE RT SHOULDER; SYNOVIAL FLUID COLOR RED (COLORLESS)
--- NOTE | 2021-01-20 16:32 | REP ---
INDICATION: bilateral AC joint pain possible septic ac joint. TECHNIQUE: Single AP view of the AC joints. FINDINGS: Limited single AP view of the AC joints shows mild rather symmetric appearing right AC joint narrowing with the left AC joint being slightly wider. There is no evidence of a destructive osseous lesion. IMPRESSION: Limited exam as described above. Findings as described above. <Electronically signed by Ziggy Olmos > 01/20/21 0255
[2021-01-20 18:56] LABS: HEMATOCRIT 27.4 % (42.0-52.0); MEAN CORPUSCULAR HEMOGLOBIN 28.9 pg (27.0-33.0); MEAN CORPUSCULAR HGB CONC 32.8 g/dl (32.0-36.5); MEAN CORPUSCULAR VOLUME 88.1 fl (80.0-96.0); PLATELET COUNT, AUTOMATED 181 10^3/uL (150-450); RED BLOOD COUNT 3.11 10^6/uL (4.30-6.10); WHITE BLOOD COUNT 12.8 10^3/uL (4.0-10.0)
[2021-01-20] MEDS ORDERED: ONDANSETRON 4MG/2ML VIAL As Ordered ONE (20:28)
[2021-01-20] MEDS ORDERED: propofoL 200 MG/20 ML VIAL As Ordered ONE (20:28)
[2021-01-20] MEDS ORDERED: MIDAZOLAM INJ 2MG/2ML VIAL (J2250 PER 1MG) As Ordered ONE (20:28)
[2021-01-20] MEDS ORDERED: LIDOCAINE 2% 100MG/5ML SDV (FOR ANES.) As Ordered ONE (20:28)
[2021-01-20] MEDS ORDERED: fentaNYL 100 MCG/2 ML INJECTION (J3010) As Ordered ONE (20:28)
[2021-01-20] MEDS ORDERED: ROCURONIUM BROMIDE 50 MG/5 ML VIAL As Ordered ONE ×2 (20:28→20:53)
[2021-01-20 20:50] LABS: SOURCE, BODY FLUID RT ANKLE; SYNOVIAL FLUID COLOR PALE YELLOW (COLORLESS)
[2021-01-20] MEDS ORDERED: PHENYLephrine 500MCG 5ML (100MCG/ML) SYRINGE As Ordered ONE (20:57)
[2021-01-20] MEDS ORDERED: TRANEXAMIC ACID 100 MG/ML 10ML VIAL As Ordered ONE (21:02)
[2021-01-20] MEDS ORDERED: BUPIVACAINE HCL 0.25% 30ML VIAL As Ordered ONE (21:23)
[2021-01-20] MEDS ORDERED: HYDROmorphone HCL 2 MG/ML 1ML VIAL As Ordered ONE (21:52)
[2021-01-20] MEDS ORDERED: SUGAMMADEX SODIUM 500 MG/5 ML VIAL (BRIDION) As Ordered ONE (22:26)
[2021-01-20] MEDS ORDERED: LR 1,000 ML IV SCH (22:45)
[2021-01-20] MEDS ORDERED: oxyCODONE 5MG TAB PO PRN (22:45)
[2021-01-20] MEDS ORDERED: ONDANSETRON 4MG/2ML VIAL IV PRN (22:45)
[2021-01-20] MEDS: fentaNYL 100 MCG/2 ML INJECTION (J3010) IV PRN ×2 (23:28→23:33)
[2021-01-21] VITALS (8 sets, daily range): BP systolic 118–160; BP diastolic 60–83
[2021-01-21] MEDS: NYSTATIN 500,000 U/5 ML SUSP UDC SS SCH ×2 (00:20→04:47)
[2021-01-21] MEDS: PANTOPRAZOLE 40MG VIAL (C9113 PER 1) IV SCH ×3 (00:20→20:02)
[2021-01-21] MEDS: SUCRALFATE SUSP 1GM/10ML UD PO SCH ×5 (00:20→20:02)
[2021-01-21] MEDS: NAFCILLIN SOD 2 GM in D5W MINI-BAG PLUS 50 ML IV SCH ×7 (00:21→23:01)
[2021-01-21] MEDS: ACETAMINOPHEN TAB 650MG DOSE (2X325MG) PO PRN ×3 (02:20→16:09)
[2021-01-21] MEDS: MORPHINE 2 MG/ML 1ML VIAL (J2270) IV PRN ×2 (03:24→08:01)
[2021-01-21] MEDS ORDERED: MORPHINE 4 MG/ML 1ML VIAL/SYRINGE (J2270) IV ONE (04:35)
[2021-01-21 05:37] LABS: HEMOGLOBIN 8.5 g/dl (13.5-17.5); MEAN CORPUSCULAR HEMOGLOBIN 28.7 pg (27.0-33.0); MEAN CORPUSCULAR HGB CONC 32.7 g/dl (32.0-36.5); MEAN CORPUSCULAR VOLUME 87.8 fl (80.0-96.0); PLATELET COUNT, AUTOMATED 186 10^3/uL (150-450); RED BLOOD COUNT 2.96 10^6/uL (4.30-6.10)
[2021-01-21 05:49] LABS: BLOOD UREA NITROGEN 9 MG/DL (7-18); CALCIUM LEVEL 6.9 MG/DL (8.5-10.1); CARBON DIOXIDE LEVEL 26 MEQ/L (21-32); CHLORIDE LEVEL 98 MEQ/L (98-107); CREATININE FOR GFR 0.85 MG/DL (0.70-1.30); GLOMERULAR FILTRATION RATE > 60.0 (>56); GLUCOSE, FASTING 114 MG/DL (70-100); MAGNESIUM LEVEL 2.1 MG/DL (1.8-2.4); SODIUM LEVEL 129 MEQ/L (136-145)
--- NOTE | 2021-01-21 06:57 | RO ---
OPERATIVE NOTE DATE OF OPERATION: 01/20/2021 TIME: 9 p.m. PREOPERATIVE DIAGNOSIS: Suspected bilateral acromioclavicular septic joint. Patient also had concomitant bilateral acromioclavicular joint arthrosis. POSTOPERATIVE DIAGNOSIS: Suspected bilateral acromioclavicular septic joint. Patient also had concomitant bilateral acromioclavicular joint arthrosis. NAME OF OPERATION: 1. Right acromioclavicular joint irrigation and debridement and bone biopsy. 2. Left acromioclavicular joint irrigation and debridement and bone biopsy. SURGEON: Maciej Shi MD PROJECT BUILDER: None. SUPERVISING ATTENDING: Maciej Shi MD FINDINGS: The patient had concerning tissue within the bilateral AC joints which appear to be slightly purulent on the right. On the left, it appeared to be concerning for infected soft tissue. The patient had significant bilateral AC joint arthrosis. INDICATIONS: This was a 55-year-old male who had a suspected bilateral acromioclavicular septic joint and concerning right tibiotalar septic joint. However, we aspirated the patient's right ankle prior to surgical procedure which yielded 8.0 synovial white blood cell count which is well below the threshold for any concern for a septic right ankle joint. However, previous bilateral AC joint aspirations were inconclusive. The patient previously complained of pain to his right ankle as well as bilateral AC joint pain in the context of endocarditis among other medical comorbidities. He has been treated by the hospitalist service as well as infectious disease for his endocarditis and other medical comorbidities. The patient is a heavy marijuana user. The patient prior to surgery had an elevated white blood cell count of 12.2 and CRP of 19.3 on the December,. He was indicated for bilateral AC joint irrigation, debridements, cultures and bone biopsies of the distal clavicle. ANESTHESIA: GETA. TOURNIQUET TIME: None used. ESTIMATED BLOOD LOSS: 40 mL. IV FLUIDS: Please see anesthesia report. IV ANTIBIOTICS: Please see anesthesia report. IMPLANTS: None. CULTURES: Anaerobic and aerobic of the fluid within the bilateral AC joints and specimen culture of the right AC joint and left AC joint as well as distal clavicle bone biopsy of the right distal clavicle and left distal clavicle, bone biopsy of the right distal clavicle and left distal clavicle as well as culture of the bone of the bilateral distal clavicles. PROCEDURE IN DETAIL: The patient was met in the preoperative holding area where the patient's operative bilateral sites were marked. The patient's consent was confirmed to be correct and the patient's identity was confirmed to be correct. The patient was then transferred to the operating theater where he was placed in supine position in a beach chair in an upright position. A safety strap secured the patient to the bed. All bony prominences were well padded. The bilateral lower extremities had SCDs placed. A timeout was called to confirm correct patient, correct operative extremity and correct consent. All staff agreed. The patient was then draped in the usual sterile fashion. We draped out his bilateral AC joints within the same setting. We began the procedure focusing on the right AC joint. We initially focused our attention on the right AC joint irrigation and debridement and marked out my skin incision which was longitudinal in nature centered over the right AC joint approximately 3 inches in length. I incised the skin sharply, then used meticulous hemostasis to love the trapezial fascia and used electrocautery to make my way to the distal clavicle in the right acromioclavicular joint. I then identified the AC joint capsule which was incised sharply with a knife. I then elevated the periosteum anterior and posterior to the AC joint in order to further expose the distal clavicle. At this point in time, I obtained aerobic, anaerobic cultures of the fluid within the AC joint. I then took a rongeur to collect soft tissue bursa within the AC joint for tissue culture. I then further elevated the periosteum anteriorly and posteriorly above the distal clavicle in order to focus my attention on the distal clavicle. I removed a small wafer of bone approximately 1-2 mm in width from the distal clavicle using a TPS saw. This would be used for a bone biopsy. I then copiously irrigated the surgical site using three liters of normal saline. I closed the right acromioclavicular joint capsule using 0 PDS and then closed the dermal layer using 2-0 PDS and closed the skin using a running 3-0 nylon suture. I then injected 5 mL of Marcaine within the AC joint and used the additional 5 mL along the surgical incision. We then turned our attention to the left AC joint. We focused our attention on the left AC joint irrigation and debridement and marked out my skin incision which was longitudinal in nature centered over the left AC joint approximately 3 inches in length. I incised the skin sharply, then used meticulous hemostasis to love the trapezial fascia and used electrocautery to make my way to the distal clavicle in the left acromioclavicular joint. I then identified the AC joint capsule which was incised sharply with a knife. I then elevated the periosteum anterior and posterior to the AC joint in order to further expose the distal clavicle. At this point in time, I obtained aerobic, anaerobic cultures of the fluid within the AC joint. I then took a rongeur to collect soft tissue bursa within the AC joint for tissue culture. I then further elevated the periosteum anteriorly and posteriorly above the distal clavicle in order to focus my attention on the distal clavicle. I removed a small wafer of bone approximately 1-2 mm in width from the distal clavicle using a TPS saw. This would be used for a bone biopsy. I then copiously irrigated the surgical site using three liters of normal saline. I closed the right acromioclavicular joint capsule using 0 PDS and then closed the dermal layer using 2-0 PDS and closed the skin using a running 3-0 nylon suture. I then injected 5 mL of Marcaine within the AC joint and used the additional 5 mL along the surgical incision. At the conclusion of the bilateral AC joint irrigation and debridements and bone biopsies, we then placed Xeroform over the right and left surgical incisions and we placed 4x4 gauze over the surgical incisions bilaterally and then placed an ABD pad over the surgical incisions bilaterally. We then secured this with foam tape. The patient was then extubated without complication and transported to the postanesthesia care unit. At this point in time, we will await the results of both the fluid and bone biopsy cultures of the right and left AC joints and distal clavicles. This will help further identify organism of suspicion. The patient will follow the bilateral distal clavicle excision rehabilitative protocol given his bone biopsies. Given his right ankle, the patient yielded a negative aspiration with 8.0 count for his white blood cell within the synovial fluid. I suspect the patient's right ankle pain is likely from a cellulitis which will be treated by the hospitalist service. The patient's care will be transferred to the hospitalist service and he will require physical therapy to follow the aforementioned rehabilitative protocol. The patient will follow up in the [facility] orthopedic clinic for a postoperative wound check on 01/29/2021 with myself. The patient will be given appropriate pain medication per the hospitalist service.
[2021-01-21] MEDS ORDERED: PERCOCET 5MG/325MG TAB PO PRN (08:25)
[2021-01-21] MEDS ORDERED: FUROSEMIDE 20MG/2ML VIAL (J1940) IV ONE (09:00)
[2021-01-21] MEDS: PERCOCET 5MG/325MG TAB PO PRN ×3 (09:48→22:14)
[2021-01-21] MEDS ORDERED: FLUCONAZOLE 100 MG TAB PO ONE (10:15)
--- NOTE | 2021-01-21 11:33 | IPNPDOC ---
Text Note Date of Service The patient was seen on 01/21/21. NOTE Subjective: Patient is a 55-year-old male presented to the emergency department feeling ill and found to have a GI bleed. Patient underwent EGD on 01/18/2021 which found a duodenal ulcer that had a clot on the ulcer. Patient also appeared to have possible candidal esophagitis with pseudomembranes. Patient's been found to have staph aureus bacteremia possibly from endocarditis. TTE did not show vegetations. JUVENCIO is pending. Patient is still having all over body pain however, he is feeling slightly better. Patient is complaining of some shoulder pain after he was taken to the OR last night for bilateral AC joint washout. Patient is hungry and was tolerating clear liquid diet well this morning. Patient is otherwise in good spirits today. Review of systems: General: Patient denies fevers HEENT: Patient denies headaches Cardiovascular: Patient denies chest pain Respiratory: Patient denies shortness of breath, cough GI: Patient denies abdominal pain, nausea, vomiting, diarrhea : Patient denies increased frequency or pain with urination Extremities: Patient reports pain in his bilateral shoulders where the procedures were done. Patient reports his ankle feels mildly better Neurological: Patient denies numbness or tingling in legs Physical exam: Vitals: See below General: Alert and oriented male patient who was sitting up in bed when I walked in. Patient appears ill and tired but does not appear to be in any acute distress. HEENT: Normocephalic, atraumatic, moist mucous membranes. Neck: No lymphadenopathy or thyromegaly Cardiac: Regular rate and rhythm, 1/6 systolic murmur heard loudest over the fourth intercostal space on the left sternal border,, normal S1, normal S2 Pulm: Faint bibasilar crackles otherwise clear to auscultation bilaterally Abd: Nondistended, nontender to palpation, normal bowel sounds Ext: 1+ pitting edema the bilateral lower extremities. Upper extremity edema has improved from prior examinations. Patient has dressings overlying the shoulders bilaterally and right ankle Labs: See below Imaging: No new imaging has been performed Assessment/plan: 55-year-old male presented to the hospital feeling ill was diagnosed with po ssible pneumonia as well as hyponatremia who started having GI bleeding was found to have a bleeding duodenal ulcer who was found to have methicillin sensitive staph aureus on multiple blood cultures who may have possible septic arthritis he was taken to the operating room on 01/20/2021 for washout procedure 1. Acute blood loss anemia secondary to gastrointestinal bleeding. Patient has received a total of 8 units of blood and 1 unit of FFP. General surgery has continued to follow the patient. We are advancing his diet to a full liquid diet today. We are continue to trend the patient's hemoglobin and hematocrit. Patient does not have any abdominal pain. Patient has not had a bowel movement last couple days but the bowel movements prior were brown and no longer red. Patient was brought to the operating room for EGD on 01/18/2021 and was found to have a a duodenal ulcer that had an adherent clot on it. I appreciate both Dr. Kate and Dr. Garcia's help treating the patient. 2. Staph aureus bacteremia. This is methicillin sensitive Staph aureus. Continue nafcillin every [address] Godinez's recommendations. I did speak with Dr. Lagunas who will perform transesophageal echocardiogram on Thursday or of this coming week. We will continue the treatment with nafcillin as above. I appreciate Dr. Godinez's help treating the patient. 3. Possible septic arthritis. Patient had arthrocentesis of bilateral AC joint right ankle however, lab could not run the samples as there was too much blood. Dr. Shi of orthopedic surgery saw the patient and took the patient to the op erating room last evening for bilateral AC joint washout and right ankle joint washout. Patient tolerated this procedure well. I appreciate Dr. Shi's help in treating the patient. 4. Hyponatremia. Patient's sodium levels appear mildly low today this may be secondary to hypervolemia. Patient will receive a dose of IV Lasix today. 5. Fevers. Most likely secondary to patient's staph aureus bacteremia with possible septic arthritis. Lyme screen was recommended by orthopedic surgery. This is pending at this time. 6. Candidal esophagitis. Patient has been switched from nystatin to fluconazole for 14 days. 7. Transaminitis. Hepatitis B, hepatitis C, and HIV are negative. We will continue to monitor the patient's CMP. 8. Total body pain. None the patient is tolerating oral diet, pain medications have been switched to oral Percocet. 9. Thrombocytopenia. Platelets are back into the normal limits. DVT Prophylaxis: Mechanical due to GI bleeding Disposition: Pending clinical improvement VS,Fishbone, I+O VS, Fishbone, I+O Laboratory Tests 01/20/21 12:00 01/20/21 18:47 01/21/21 05:14 Vital Signs Date Time Temp Pulse Resp B/P (MAP) Pulse Ox O2 Delivery O2 Flow Rate FiO2 01/21/21 09:48 18 01/21/21 06:00 100.1 89 139/68 (91) 95 Room Air 01/18/21 07:10 3.0 I&O- Last 24 Hours up to 6 AM 01/21/21 06:00 Intake Total 1370 ml Output Total 1090 ml Balance 280 ml SURAJ CAMPBELL DO Jan 21, 2021 11:33
[2021-01-21 16:01] LABS: HEMOGLOBIN 9.4 g/dl (13.5-17.5); MEAN CORPUSCULAR HEMOGLOBIN 29.3 pg (27.0-33.0); MEAN CORPUSCULAR HGB CONC 31.3 g/dl (32.0-36.5); MEAN CORPUSCULAR VOLUME 93.5 fl (80.0-96.0); PLATELET COUNT, AUTOMATED 143 10^3/uL (150-450); RED BLOOD COUNT 3.21 10^6/uL (4.30-6.10); WHITE BLOOD COUNT 9.9 10^3/uL (4.0-10.0)
--- NOTE | 2021-01-21 20:23 | IPN ---
PROGRESS NOTE DATE: 01/21/2021 SUBJECTIVE: Mr. Lima went to the OR yesterday with Dr. Shi. He had an I&D of both shoulders. He had an aspiration of his right ankle that did now show any evidence of infection. He is in much better spirits. He feels better, except for postoperative fevers. He denies any nausea, vomiting, or diarrhea. Shoulder pain has improved. He has some pleuritic chest pain mostly on the right side and a dry cough, but that has improved as well. OBJECTIVE: VITAL SIGNS: Temperature 100.6, pulse 84, respirations 18, blood pressure 140/69, O2 sat 97% on room air. T-max today was 102.6. HEART: Normal S1, S2 with a systolic ejection murmur 2/6 unchanged. LUNGS: Diminished with a few crackles at both bases. No rhonchi. ABDOMEN: Soft and nontender with no hepatosplenomegaly. BACK: No CVA or lumbosacral spine tenderness. EXTREMITIES: Right ankle with much better range of motion. Slight swelling of the ankle joint, but no redness. +1 edema. Right upper extremity also has edema. His elbow joint has normal range of motion. He has incisions on both shoulders with sutures in place. No redness on the left side. The right side was not examined. LABORATORY DATA: White count 9.9, hemoglobin 9.4, hematocrit 30, platelets 143,000. Sodium 129, potassium 4, chloride 98, bicarb 26, BUN 9, creatinine 0.85, glucose 114, calcium 6.9, phosphorus 2.1. Lactic acid 1.3. CPK 34. Intraoperative cultures are pending. Blood cultures from 01/18 two sets showed no growth after 72 hours. Blood cultures from 01/16 and 01/17 were all Methicillin-sensitive Staphylococcus aureus (MSSA). Vascular ultrasound 01/20 of the lower extremities with no evidence of DVT. Ultrasound right upper extremity showed no evidence of DVT, but there is thrombosis of the distal basilic vein consistent with a superficial thrombophlebitis. MRI of both shoulders showed enhancement of the shoulder girdle consistent with subcutaneous infection and infectious myositis, as well as a subacromial subdeltoid bursitis. Degenerative changes of the acromioclavicular joint with small amount of joint fluid consistent with intraarticular infection as well. ASSESSMENT: 1. Staphylococcus aureus methicillin-sensitive Staphylococcus aureus (MSSA) sepsis with secondary infectious bursitis and septic arthritis of the shoulders status post incision and drainage (I&D) done by Dr. Ruby with also evidence of septic emboli to the lungs. The patient is currently on IV nafcillin 2 grams every four hours and has negative blood cultures from 01/18. The patient will be scheduled for a peripherally inserted central catheter (PICC) line. He will need at least four to six weeks of IV antibiotics. The patient is scheduled for a transesophageal echocardiogram to rule out endocarditis, which is very likely. 2. Gastrointestinal (GI) bleed from peptic ulcer disease, bleeding ulcer from nonsteroidal anti-inflammatory drugs (NSAIDs) use. There was also concern of roopa esophagitis and therefore, the patient was started on fluconazole although this is very unlikely, but pathology was not sent from the area of esophagitis. 3. Gastrointestinal (GI) bleeding. The patient has received multiple blood transfusions. Hemoglobin is stable. PLAN: Schedule for peripherally inserted central catheter (PICC) line tomorrow. The patient was advised that he will need prolonged IV antibiotics including at least four to six weeks. The patient is agreeable. Transesophageal echocardiogram will be done with Dr. Lagunas on Thursday. Operative cultures are pending and will be reviewed in the next couple of days. Elevate right arm on pillows as he complains of excessive swelling.
[2021-01-22] MEDS: NAFCILLIN SOD 2 GM in D5W MINI-BAG PLUS 50 ML IV SCH ×6 (02:44→23:41)
[2021-01-22] MEDS: PERCOCET 5MG/325MG TAB PO PRN ×3 (04:47→20:35)
[2021-01-22 06:00] VITALS: BP 142/72
[2021-01-22 07:14] LABS: HEMATOCRIT 24.8 % (42.0-52.0); HEMOGLOBIN 8.1 g/dl (13.5-17.5); MEAN CORPUSCULAR HEMOGLOBIN 29.1 pg (27.0-33.0); MEAN CORPUSCULAR HGB CONC 32.7 g/dl (32.0-36.5); MEAN CORPUSCULAR VOLUME 89.2 fl (80.0-96.0); PLATELET COUNT, AUTOMATED 194 10^3/uL (150-450); RED BLOOD COUNT 2.78 10^6/uL (4.30-6.10); WHITE BLOOD COUNT 8.6 10^3/uL (4.0-10.0)
[2021-01-22 07:39] LABS: ALT/SGPT 40 U/L (12-78); BILIRUBIN,DIRECT 0.2 MG/DL (0.0-0.2); BILIRUBIN,TOTAL 0.4 MG/DL (0.2-1.0); BLOOD UREA NITROGEN 8 MG/DL (7-18); CARBON DIOXIDE LEVEL 27 MEQ/L (21-32); CHLORIDE LEVEL 96 MEQ/L (98-107); CREATININE FOR GFR 0.78 MG/DL (0.70-1.30); GLOMERULAR FILTRATION RATE > 60.0 (>56); GLUCOSE, FASTING 120 MG/DL (70-100); MAGNESIUM LEVEL 2.3 MG/DL (1.8-2.4); POTASSIUM SERUM 3.9 MEQ/L (3.5-5.1); SODIUM LEVEL 129 MEQ/L (136-145)
[2021-01-22] MEDS: PANTOPRAZOLE 40MG VIAL (C9113 PER 1) IV SCH (08:05)
[2021-01-22] MEDS: SUCRALFATE SUSP 1GM/10ML UD PO SCH ×4 (08:05→20:35)
[2021-01-22] MEDS: FLUCONAZOLE 100 MG TAB PO SCH (08:06)
[2021-01-22] MEDS ORDERED: LIDOCAINE 1% MDV 20ML VIAL As Ordered ONE (10:04)
[2021-01-22] MEDS: HEPARIN SOD (PORCINE) 5000UNITS/ML 1ML VIAL/SYRINGE SQ SCH ×2 (12:11→20:34)
[2021-01-22] MEDS: SODIUM CHLORIDE 0.9% INJ 10 ML SYR IV PRN ×3 (13:34→17:53)
[2021-01-22 14:00] VITALS: BP 125/67
[2021-01-22] MEDS: MORPHINE 2 MG/ML 1ML VIAL (J2270) IV PRN (15:16)
[2021-01-22 16:08] LABS: CHLAMYDIA PNEUMONIAE IgM <1:10 (Neg:<1:10)
[2021-01-22 16:08] LABS: Lyme Disease IgG/IgM Antibodie <0.91 ISR (0.00-0.90); Lyme Disease IgM Ab Quantitati <0.80 index (0.00-0.79)
[2021-01-22] MEDS: SODIUM CHLORIDE 0.9% INJ 10 ML SYR IV SCH (16:47)
--- NOTE | 2021-01-22 17:26 | IPNPDOC ---
Text Note Date of Service The patient was seen on 01/22/21. NOTE Subjective: Patient continues to complain of bilateral shoulder pain, he stated the pain level 10 out of 10. Objective: GENERAL APPEARANCE: NAD HEENT: no scleral icterus, no JVD, EOMI CARDIOVASCULAR: S1S2 LUNGS: Diminished lung sounds bilaterally ABDOMEN: soft & not tender w palpation MUSCULOSKELETAL: no cyanosis, + 1 pitting edema bilaterally INTEGUMENT: no generalized pallor NEUROLOGICAL: cranial nerve function from 2-12 intact, follows commands, speech not dysarthric Assessment and plan 55-year-old male presented to the hospital feeling ill was diagnosed with possible pneumonia as well as hyponatremia who started having GI bleeding was found to have a bleeding duodenal ulcer who was found to have methicillin sensitive staph aureus on multiple blood cultures who may have possible septic arthritis he was taken to the operating room on 01/20/2021 for washout procedure. Acute blood loss anemia/GI bleed Secondary to GI bleed EGD was done on 01/18/2021 and was found to have a a duodenal ulcer that had an adherent clot on We will continue fluconazole empirically for possible fungal esophagitis Continue PPI and sucralfate MSSA bacteremia Most likely secondary to infectious bursitis and septic arthritis of the shoulder with evidence of septic emboli to the lungs Continue nafcillin IV every 4 hours Patient will need 6 weeks of IV antibiotics JUVENCIO tomorrow to rule out endocarditis Hypervolemic hyponatremia/acute diastolic CHF Most likely secondary to acute diastolic CHF Echo was done on 01/18/2021 and showed diastolic dysfunction with ejection fraction of 55 to 60% BNP elevated to 1338 We will check cortisol level, serum and urine osmolality Fluid restriction for now Lasix IV JUVENCIO will be done tomorrow Fever resolved Transaminitis Resolved Hepatitis B, hepatitis C, and HIV are negative Bilateral shoulder pain Pain management Thrombocytopenia Resolved DVT prophylaxis Heparin 5000 twice daily VS,Fishbone, I+O VS, Fishbone, I+O Laboratory Tests 01/22/21 06:14 Vital Signs Date Time Temp Pulse Resp B/P (MAP) Pulse Ox O2 Delivery O2 Flow Rate FiO2 01/22/21 15:26 18 01/22/21 15:16 Room Air 01/22/21 14:00 98.9 87 125/67 (86) 96 01/18/21 07:10 3.0 l I&O- Last 24 Hours up to 6 AM 01/22/21 06:00 Intake Total 2660 ml Output Total 4460 ml Balance -1800 ml GREGORIO ANDERSON DO Jan 22, 2021 17:26
[2021-01-22 17:46] LABS: C REACTIVE PROTEIN QUANTITATIV 12.7 MG/DL (0.00-0.30)
[2021-01-22] MEDS: FUROSEMIDE 40MG/4ML VIAL (J1940) IV SCH (17:52)
--- NOTE | 2021-01-22 18:54 | IPNPDOC ---
Text Note Date of Service The patient was seen on 01/22/21. NOTE SUBJECTIVE: Mr. Lima is s/p bilateral shoulder I&D and right ankle aspiration. He appears to be in less pain today than yesterday. His fevers have come down, staying around 99F. He still has difficulty moving and pain in his shoulders, greater the right than on the left. He says his chest pain has resolved. He denies fever, chills, headaches, SOB, abdominal pain, N/V/D, dysuria, pyuria, and bloody stools. OBJECTIVE: PHYSICAL EXAMINATION: VITALS: Please see below. GENERAL: Pleasant male lying in bed, breathing comfortably on room air in no acute distress. HEENT: NC. AT. Mucus membranes moist. Sclera nonicteric. Noninjected conjunctiva. NECK: Mild submandibular tenderness. No lymphadenopathy or masses appreciated. CARDIOVASCULAR: Regular rate and rhythm. Systolic murmur heard best at left 2nd ICS. No gallops or rubs appreciated. RESPIRATORY: Diminished lung sounds at the bases. Few crackles heard. No wheezing or rhonchi appreciated. ABDOMEN: Soft, nontender to palpation. Positive bowel sounds. EXTREMITIES: Bilateral shoulder incisions with sutures. PICC line in left arm. Bilateral edema at the ankles and feet. Tenderness near bilateral medial malleolus and dorsum of the feet. Increased range of motion at the ankles, wrists, and elbows. Difficulty moving shoulders. LYMPH: No cervical, axillary, or inguinal lymphadenopathy appreciated. LABORATORY DATA: WBC 8.6, Hgb 8.1, Hct 24.8, Plt count 194 Na 129, K 3.9, Cl 96, CO2 27, BUN 8, Cr 0.78, Glu 120, Ca 7.0, Mg 2.3 MICROBIOLOGY: 01/16, 01/17, 01/19 Blood culture - MSSA 01/21 Blood cultures pending 01/20 Surgical biopsy and aspiration cultures pending PATHOLOGY: 01/21/21 Bilateral septic AC joints IMAGIN01/20/21 AC joint X-ray: "Limited single AP view of the AC joints shows mild rather symmetric appearing right AC joint narrowing with the left AC joint being slightly wider. There is no evidence of a destructive osseous lesion." ASSESSMENT: #MSSA sepsis with secondary infectious bursitis and septic arthritis -Patient is s/p I&D of the bilateral shoulders. He is on IV nafcillin 2gm Q4H. His incisions are healing well. PICC line is placed in left basilic vein yesterday. His first negative was on 01/18, but he had another MSSA positive blood culture on 01/19. Will continue to repeat blood cultures as antibiotics need to be continued for at least 4 to 6 weeks after negative blood cultures. For outpatient antibiotics, patient will get 12g continuous IV through his PICC line. -He is scheduled for JUVENCIO tomorrow afternoon for possible endocarditis. -Source of MSSA is still unknown. However, it is likely the patient is a MSSA carrier. #GIB from peptic ulcer disease -Patient is no longer has bloody stools. He is still on Diflucan for possible roopa esophagitis found on EGD, although not sent for pathology. PLAN: -Continue IV nafcillin 2gm Q4H (day #5) -Repeat blood cultures -Scheduled JUVENCIO for tomorrow -Pending ESR, CRP -Pending surgical biopsy and aspiration cultures VS,Fishbone, I+O VS, Fishbone, I+O Laboratory Tests 01/22/21 06:14 Vital Signs Date Time Temp Pulse Resp B/P (MAP) Pulse Ox O2 Delivery O2 Flow Rate FiO2 01/22/21 15:26 18 01/22/21 15:16 Room Air 01/22/21 14:00 98.9 87 125/67 (86) 96 01/18/21 07:10 3.0 I&O- Last 24 Hours up to 6 AM 01/22/21 06:00 Intake Total 2660 ml Output Total 4460 ml Balance -1800 ml GME ATTESTATION GME ATTESTATION My faculty preceptor for this patient encounter was physically present during the encounter and was fully available. All aspects of the patient interview, examination, medical decision making process, and medical care plan development were reviewed and approved by the faculty preceptor. The faculty preceptor is aware and concurs with the plan as stated in the body of this note and will attest to such by his/her cosignature. SHEREEN GUZMAN OMS-3 Jan 22, 2021 18:54
[2021-01-22] MEDS: PANTOPRAZOLE 40MG TAB (PROTONIX) PO SCH (20:34)
[2021-01-22 22:00] VITALS: BP 145/71
[2021-01-22 23:54] VITALS: O2SAT 94
[2021-01-23] MEDS: NAFCILLIN SOD 2 GM in D5W MINI-BAG PLUS 50 ML IV SCH ×6 (02:23→23:35)
[2021-01-23] MEDS: MORPHINE 2 MG/ML 1ML VIAL (J2270) IV PRN ×3 (02:24→16:35)
[2021-01-23] MEDS: SODIUM CHLORIDE 0.9% INJ 10 ML SYR IV SCH ×2 (05:47→19:12)
[2021-01-23] MEDS: FUROSEMIDE 40MG/4ML VIAL (J1940) IV SCH ×2 (05:47→19:12)
[2021-01-23] MEDS: PERCOCET 5MG/325MG TAB PO PRN ×3 (05:48→21:05)
[2021-01-23 05:49] LABS: HEMATOCRIT 24.2 % (42.0-52.0); HEMATOCRIT 24.7 % (42.0-52.0); HEMOGLOBIN 8.2 g/dl (13.5-17.5); MEAN CORPUSCULAR HEMOGLOBIN 28.9 pg (27.0-33.0); MEAN CORPUSCULAR HEMOGLOBIN 29.8 pg (27.0-33.0); MEAN CORPUSCULAR HGB CONC 32.4 g/dl (32.0-36.5); MEAN CORPUSCULAR HGB CONC 33.9 g/dl (32.0-36.5); MEAN CORPUSCULAR VOLUME 89.2 fl (80.0-96.0); PLATELET COUNT, AUTOMATED 224 10^3/uL (150-450); PLATELET COUNT, AUTOMATED 236 10^3/uL (150-450); RED BLOOD COUNT 2.75 10^6/uL (4.30-6.10); RED BLOOD COUNT 2.77 10^6/uL (4.30-6.10); WHITE BLOOD COUNT 8.2 10^3/uL (4.0-10.0); WHITE BLOOD COUNT 8.3 10^3/uL (4.0-10.0)
[2021-01-23 06:00] VITALS: BP 116/65
[2021-01-23 06:10] LABS: BLOOD UREA NITROGEN 7 MG/DL (7-18); CALCIUM LEVEL 7.1 MG/DL (8.5-10.1); CARBON DIOXIDE LEVEL 30 MEQ/L (21-32); CHLORIDE LEVEL 96 MEQ/L (98-107); CREATININE FOR GFR 0.73 MG/DL (0.70-1.30); GLOMERULAR FILTRATION RATE > 60.0 (>56); GLUCOSE, FASTING 122 MG/DL (70-100); MAGNESIUM LEVEL 1.9 MG/DL (1.8-2.4); POTASSIUM SERUM 3.8 MEQ/L (3.5-5.1); SODIUM LEVEL 130 MEQ/L (136-145)
[2021-01-23 06:16] LABS: ALT/SGPT 36 U/L (12-78); BILIRUBIN,TOTAL 0.4 MG/DL (0.2-1.0); BLOOD UREA NITROGEN 6 MG/DL (7-18); CALCIUM LEVEL 7.2 MG/DL (8.5-10.1); CARBON DIOXIDE LEVEL 30 MEQ/L (21-32); CHLORIDE LEVEL 96 MEQ/L (98-107); CREATININE FOR GFR 0.74 MG/DL (0.70-1.30); GLOMERULAR FILTRATION RATE > 60.0 (>56); GLUCOSE, FASTING 126 MG/DL (70-100); POTASSIUM SERUM 3.8 MEQ/L (3.5-5.1); SODIUM LEVEL 130 MEQ/L (136-145)
[2021-01-23 06:30] LABS: BASOPHILS 1 % (0-1); EOSINOPHILS 3 % (0-3); LYMPHOCYTES 23 % (16-44); MONOCYTES 10 % (0-5); NEUTROPHILS 61 % (28-66); PLATELET ESTIMATE NORMAL (NORMAL)
[2021-01-23] MEDS: SODIUM CHLORIDE 0.9% INJ 10 ML SYR IV PRN ×3 (07:16→23:35)
[2021-01-23] MEDS: SUCRALFATE SUSP 1GM/10ML UD PO SCH ×4 (07:16→21:04)
[2021-01-23 08:00] VITALS: BP 128/70
[2021-01-23] MEDS: PANTOPRAZOLE 40MG TAB (PROTONIX) PO SCH ×2 (08:44→21:05)
[2021-01-23] MEDS: FLUCONAZOLE 100 MG TAB PO SCH (08:44)
[2021-01-23] MEDS: HEPARIN SOD (PORCINE) 5000UNITS/ML 1ML VIAL/SYRINGE SQ SCH ×2 (08:44→19:47)
--- NOTE | 2021-01-23 08:49 | IPN ---
PROGRESS NOTE DATE: 01/22/2021 SUBJECTIVE: This is a 55-year-old male postop day #2 for a bilateral AC joint irrigation debridement with bone biopsy of the distal clavicle. Patient was indicated for irrigation debridement and bone biopsy of his bilateral AC joints after clinical and radiographic suspicion of a septic bilateral AC joint. The patient is resting comfortably in bed today eating dinner. Dressings are in place, clean, dry and intact. OBJECTIVE: He is postop day #2 for the aforementioned procedure. He is neurovascularly intact to the bilateral upper extremity. The incisions are clean, dry and intact. He has minimal tenderness to palpation about the bilateral AC joints which is appropriate. He is otherwise neurovascularly intact to the right and left upper extremities. He had 5/5 motor strength in the bilateral musculature of the musculocutaneous, axillary, radial, median, ulnar nerve distributions. He has sensation intact to light touch to the musculocutaneous, axillary, radial, median and ulnar nerve distributions. He had brisk capillary refill to the digits of his bilateral upper extremities with a 2+ radial and ulnar pulse bilaterally. IMPRESSION: A 55-year-old male postop day #2 for the aforementioned procedure, doing well. PLAN: At this point in time we are pending the aerobic and anaerobic culture analysis of both the bilateral AC joint synovial fluid as well as the bone biopsy of the distal clavicle. Based on these findings, this may tailor IV antibiotic selection per Dr. Godinez of Infectious Disease Department. The patient otherwise shall be activity as tolerated, range of motion as tolerated to the right upper extremity with a 15 pound weight limit. Patient will follow-up at the [facility] on 01/29/[address] Shi, myself.
[2021-01-23 10:00] VITALS: BP 128/70
--- NOTE | 2021-01-23 10:46 | IPN ---
PROGRESS NOTE DATE: 01/23/2021 SUBJECTIVE: I met with Mr. Lima to discuss the upcoming transesophageal echocardiogram that I was asked by Dr. Mckeon to perform. The patient is a 55-year-old man who presented with severe anemia, fever and chills and has multiple blood cultures positive for Staph aureus. He also had septic arthritis in both shoulders and his ankle and underwent surgical intervention in all three. Transthoracic echocardiogram failed to reveal any evidence for vegetations but in this clinical setting the suspicion for endocarditis is high. Consequently, I was asked to perform JUVENCIO. I met with the patient. I explained the nature of the procedure, the indication and possible findings. I also talked about the risks of the procedure. He did sign appropriate consent. The procedure is tentatively scheduled for 5 o'clock this afternoon. Patient will be kept NPO after a light breakfast.
[2021-01-23 14:00] VITALS: BP 127/71
--- NOTE | 2021-01-23 15:09 | IPNPDOC ---
Text Note Date of Service The patient was seen on 01/23/21. NOTE Subjective: Patient stated that he feels better today, his shoulder pain impr velia Objective: GENERAL APPEARANCE: NAD HEENT: no scleral icterus, no JVD, EOMI CARDIOVASCULAR: S1S2 LUNGS: Diminished lung sounds bilaterally ABDOMEN: soft & not tender w palpation MUSCULOSKELETAL: no cyanosis, + 1 pitting edema bilaterally INTEGUMENT: no generalized pallor NEUROLOGICAL: cranial nerve function from 2-12 intact, follows commands, speech not dysarthric Assessment and plan 55-year-old male presented to the hospital feeling ill was diagnosed with possible pneumonia as well as hyponatremia who started having GI bleeding was found to have a bleeding duodenal ulcer who was found to have methicillin sensitive staph aureus on multiple blood cultures who may have possible septic arthritis he was taken to the operating room on 01/20/2021 for washout procedure. Acute blood loss anemia/GI bleed Secondary to GI bleed EGD was done on 01/18/2021 and was found to have a a duodenal ulcer that had an adherent clot on We will continue fluconazole empirically for possible fungal esophagitis for 14 days in total Continue PPI and sucralfate MSSA bacteremia Most likely secondary to infectious bursitis and septic arthritis of the shoulder with evidence of septic emboli to the lungs Continue nafcillin IV every 4 hours Patient will need 6 weeks of IV antibiotics JUVENCIO today to rule out endocarditis Hypervolemic hyponatremia/acute diastolic CHF Most likely secondary to acute diastolic CHF Echo was done on 01/18/2021 and showed diastolic dysfunction with ejection fraction of 55 to 60% BNP elevated to 1338 Fluid restriction for now Lasix IV Cardiac diet, I's and O's Fever resolved Transaminitis Resolved Hepatitis B, hepatitis C, and HIV are negative Bilateral shoulder pain Pain management Thrombocytopenia Resolved DVT prophylaxis Heparin 5000 twice daily VS,Fishbone, I+O VS, Fishbone, I+O Laboratory Tests 01/23/21 05:36 Vital Signs Date Time Temp Pulse Resp B/P (MAP) Pulse Ox O2 Delivery O2 Flow Rate FiO2 01/23/21 14:00 98.6 73 16 127/71 (89) 94 Room Air 01/18/21 07:10 3.0 I&O- Last 24 Hours up to 6 AM 01/23/21 05:59 Intake Total 2610 ml Output Total 6305 ml Balance -3695 ml DROZHZHIN,GREGORIO DO Jan 23, 2021 15:09
--- NOTE | 2021-01-23 17:33 | REP ---
INDICATION: iv access. COMPARISON: None. TECHNIQUE: The procedure was performed under the direct supervision of Dr. Mchugh. The risks and benefits of the procedure were explained to the patient and informed consent was obtained. The left basilic vein was localized using ultrasound guidance. The skin was prepped and draped in a sterile fashion. 3 mL of 1% lidocaine was used as a local anesthetic. Using ultrasound guidance the basilic vein was cannulated and a 0.018 guidewire was inserted and advanced to the SVC using fluoroscopic guidance, and last image hold technology. The needle was removed and a 5.5 Martiniquais dilator and peel-away sheath was inserted over the guide wire. A 5.5 Martiniquais dual lumen catheter was cut to length of 45 cm. The dilator was removed and the catheter was inserted over the guide wire with the tip ending in the SVC. The peel-away sheath was removed and the catheter was flushed with heparinized saline as per Hospital protocol. The catheter was affixed to the skin and a sterile dressing was applied. Estimated blood loss: Less than 1 mL The patient tolerated the procedure well and there were no immediate complications. 0.1 minutes of fluoro time was utilized for this procedure. FINDINGS: None IMPRESSION: PICC line insertion left basilic vein with the tip ending in the SVC. <Electronically signed by Ze Davis > 01/22/21 1520 <Electronically signed by Shreyas Mchugh > 01/23/21 1716
[2021-01-23] MEDS ORDERED: propofoL 200 MG/20 ML VIAL As Ordered ONE (17:57)
[2021-01-23] MEDS ORDERED: MIDAZOLAM INJ 2MG/2ML VIAL (J2250 PER 1MG) As Ordered ONE (18:02)
[2021-01-23] MEDS ORDERED: CETACAINE SPRAY 5GM As Ordered ONE (18:05)
[2021-01-23] MEDS ORDERED: LIDOCAINE VISCOUS 2% SOLN 15ML UDC As Ordered ONE (18:05)
[2021-01-23] MEDS ORDERED: fentaNYL 100 MCG/2 ML INJECTION (J3010) As Ordered ONE (18:20)
[2021-01-23] MEDS ORDERED: LR 1,000 ML IV SCH (18:55)
[2021-01-23] MEDS ORDERED: ONDANSETRON 4MG/2ML VIAL IV PRN (18:55)
--- NOTE | 2021-01-23 20:14 | T-ECHO ---
TRANSESOPHAGEAL ECHO DATE: 01/23/2021 REFERRING PHYSICIAN: Alex Morgan D.O. INDICATION: Staphylococcus bacteremia. BRIEF HISTORY: Mr. Lima is a pleasant 55-year-old man who presented to [facility] with severe anemia, gastrointestinal (GI) bleeding and with sepsis. He grew Staphylococcus from numerous blood cultures. He developed septic arthritis in both shoulders and in his left ankle that were all drained. Infectious disease customs consultant, Dr. Godinez, along with the attending on the case, requested transesophageal echocardiogram because the source of the infection at this point is unclear. I spoke with the patient the morning of the procedure. I explained the rationale, potential complications and the nature of the study. He did sign appropriate consent. PROCEDURE NOTE: Procedure was performed in the operating room. Patient presented with fasting condition for over eight hours. After appropriate time out was taken and all the monitors were applied, his posterior pharynx was anesthetized using initially Cetacaine spray and then viscous lidocaine. He was then positioned in the left lateral decubitus position. Bite block was placed. After appropriate level of sedation was accomplished, probe was introduced initially into the esophagus and later into the stomach without difficulty. After appropriate images were obtained, it was withdrawn. There were no immediate complications and patient tolerated the procedure well. FINDINGS: Left ventricle has normal systolic function with estimated ejection fraction (EF) around 60-65%. I do not appreciate any segmental wall motion abnormalities. Right ventricle also has normal systolic function and does not appear enlarged. Aortic valve has three cusps, normal mobility and no evidence of vegetations. There is no stenosis or insufficiency. Mitral valve also has normal anatomy. It has normal mobility. No vegetations are seen. There is no stenosis and by color Doppler imaging, there is no mitral insufficiency. Tricuspid valve appears normal. No insufficiency is seen. No vegetations are seen. Pulmonic valve is also intact with mild insufficiency, no stenosis and no visualized vegetations. Left atrial appendage is free of obvious thrombi and has normal flow. There is also normal flow in both left and right-sided pulmonary veins. Atrial septum is intact based on 2D and color Doppler imaging. There is mild lipomatous hypertrophy of atrial septum. Right atrium contains tip of the peripherally inserted central catheter (PICC) line with visible bubbles associated with infused sedative. No pericardial effusion is seen. Aortic root, visualized segment of aortic arch and descending aorta are free of significant atherosclerosis. CONCLUSIONS: 1. Preserved left ventricular (LV) systolic function. 2. Preserved right ventricular (RV) systolic function. 3. No significant valvular disease. 4. Intact atrial septum. 5. Normal flow in pulmonary veins. 6. No significant atherosclerosis. 7. Essentially normal transesophageal echocardiogram. MTDD
[2021-01-23 22:00] VITALS: BP 125/73
[2021-01-24] MEDS: MORPHINE 2 MG/ML 1ML VIAL (J2270) IV PRN ×4 (00:34→20:05)
[2021-01-24] MEDS: PERCOCET 5MG/325MG TAB PO PRN ×4 (03:13→22:07)
[2021-01-24] MEDS: SODIUM CHLORIDE 0.9% INJ 10 ML SYR IV PRN ×4 (03:14→14:24)
[2021-01-24] MEDS: NAFCILLIN SOD 2 GM in D5W MINI-BAG PLUS 50 ML IV SCH ×5 (03:14→18:08)
[2021-01-24 06:00] VITALS: BP 136/73
[2021-01-24] MEDS: SODIUM CHLORIDE 0.9% INJ 10 ML SYR IV SCH ×2 (06:06→18:09)
[2021-01-24] MEDS: FUROSEMIDE 40MG/4ML VIAL (J1940) IV SCH ×2 (06:07→18:09)
[2021-01-24 06:38] LABS: HEMATOCRIT 21.8 % (42.0-52.0); MEAN CORPUSCULAR HGB CONC 32.1 g/dl (32.0-36.5); MEAN CORPUSCULAR VOLUME 90.5 fl (80.0-96.0); PLATELET COUNT, AUTOMATED 239 10^3/uL (150-450); RED BLOOD COUNT 2.41 10^6/uL (4.30-6.10); WHITE BLOOD COUNT 7.5 10^3/uL (4.0-10.0)
[2021-01-24 07:09] LABS: ALBUMIN 1.1 GM/DL (3.2-5.2); ALT/SGPT 38 U/L (12-78); BILIRUBIN,TOTAL 0.5 MG/DL (0.2-1.0); BLOOD UREA NITROGEN 8 MG/DL (7-18); CALCIUM LEVEL 7.7 MG/DL (8.5-10.1); CARBON DIOXIDE LEVEL 29 MEQ/L (21-32); CHLORIDE LEVEL 98 MEQ/L (98-107); CREATININE FOR GFR 0.81 MG/DL (0.70-1.30); GLOMERULAR FILTRATION RATE > 60.0 (>56); GLUCOSE, FASTING 121 MG/DL (70-100); POTASSIUM SERUM 3.7 MEQ/L (3.5-5.1); SODIUM LEVEL 133 MEQ/L (136-145); TOTAL PROTEIN 5.9 GM/DL (6.4-8.2)
[2021-01-24] MEDS: HEPARIN SOD (PORCINE) 5000UNITS/ML 1ML VIAL/SYRINGE SQ SCH ×2 (07:56→20:05)
[2021-01-24 08:04] LABS: ANISOCYTOSIS 1+; EOSINOPHILS 1 % (0-3); LYMPHOCYTES 23 % (16-44); METAMYELOCYTES 2 % (0-0); MONOCYTES 3 % (0-5); MYELOCYTES 1 % (0-0); NEUTROPHILS 70 % (28-66); PLATELET ESTIMATE NORMAL (NORMAL)
[2021-01-24] MEDS: SUCRALFATE SUSP 1GM/10ML UD PO SCH ×4 (08:05→20:05)
[2021-01-24] MEDS: PANTOPRAZOLE 40MG TAB (PROTONIX) PO SCH ×2 (08:05→20:05)
[2021-01-24] MEDS: FLUCONAZOLE 100 MG TAB PO SCH (08:05)
[2021-01-24 12:30] LABS: HEMATOCRIT 26.1 % (42.0-52.0); HEMOGLOBIN 8.5 g/dl (13.5-17.5)
[2021-01-24 14:00] VITALS: BP 120/62
[2021-01-24] MEDS: MIRALAX *UNIT DOSE* 17GM PACKET PO SCH (18:08)
--- NOTE | 2021-01-24 18:26 | IPNPDOC ---
Text Note Date of Service The patient was seen on 01/24/21. NOTE Subjective: No new acute events overnight. Patient denied fever, chills, loi sea. He reported constipation for few days Objective: GENERAL APPEARANCE: NAD HEENT: no scleral icterus, no JVD, EOMI CARDIOVASCULAR: S1S2 LUNGS: Diminished lung sounds bilaterally ABDOMEN: soft & not tender w palpation MUSCULOSKELETAL: no cyanosis, + 1 pitting edema bilaterally INTEGUMENT: no generalized pallor NEUROLOGICAL: cranial nerve function from 2-12 intact, follows commands, speech not dysarthric Assessment and plan 55-year-old male presented to the hospital feeling ill was diagnosed with possible pneumonia as well as hyponatremia who started having GI bleeding was found to have a bleeding duodenal ulcer who was found to have methicillin sensitive staph aureus on multiple blood cultures who may have possible septic arthritis he was taken to the operating room on 01/20/2021 for washout procedure. Acute blood loss anemia/GI bleed Secondary to GI bleed EGD was done on 01/18/2021 and was found to have a a duodenal ulcer that had an adherent clot on continue fluconazole empirically for possible fungal esophagitis for 14 days in total Continue PPI and sucralfate MSSA bacteremia Most likely secondary to infectious bursitis and septic arthritis of the shoulder with evidence of septic emboli to the lungs Continue nafcillin IV every 4 hours Patient will need 6 weeks of IV antibiotics JUVENCIO was done, no vegetations Hypervolemic hyponatremia/acute diastolic CHF Most likely secondary to acute diastolic CHF Echo was done on 01/18/2021 and showed diastolic dysfunction with ejection fraction of 55 to 60% BNP elevated to 1338 Fluid restriction for now Lasix IV Cardiac diet, I's and O's Improved Fever resolved Transaminitis Resolved Hepatitis B, hepatitis C, and HIV are negative Bilateral shoulder pain Pain management Thrombocytopenia Resolved DVT prophylaxis Heparin 5000 twice daily VS,Fishbone, I+O VS, Fishbone, I+O Laboratory Tests 01/24/21 06:00 01/24/21 12:16 Vital Signs Date Time Temp Pulse Resp B/P (MAP) Pulse Ox O2 Delivery O2 Flow Rate FiO2 01/24/21 16:02 18 Room Air 01/24/21 14:33 97 01/24/21 14:00 98.2 75 120/62 (81) 01/18/21 07:10 3.0 I&O- Last 24 Hours up to 6 AM 01/24/21 06:00 Intake Total 1900 ml Output Total 5575 ml Balance -3675 ml GREGORIO ANDERSON DO Jan 24, 2021 18:26
[2021-01-24 22:00] VITALS: BP 122/66
[2021-01-24] MEDS: ceFAZolin SOD 2 GM in IV 1 EA IV SCH (22:17)
[2021-01-25] MEDS: MORPHINE 2 MG/ML 1ML VIAL (J2270) IV PRN ×3 (02:00→15:07)
[2021-01-25] MEDS: PERCOCET 5MG/325MG TAB PO PRN ×2 (05:04→11:09)
[2021-01-25] MEDS: ceFAZolin SOD 2 GM in IV 1 EA IV SCH (05:05)
[2021-01-25] MEDS: FUROSEMIDE 40MG/4ML VIAL (J1940) IV SCH (05:05)
[2021-01-25] MEDS: SODIUM CHLORIDE 0.9% INJ 10 ML SYR IV SCH (05:06)
[2021-01-25 05:37] LABS: HEMATOCRIT 28.4 % (42.0-52.0); HEMOGLOBIN 8.9 g/dl (13.5-17.5); MEAN CORPUSCULAR HEMOGLOBIN 28.4 pg (27.0-33.0); MEAN CORPUSCULAR HGB CONC 31.3 g/dl (32.0-36.5); MEAN CORPUSCULAR VOLUME 90.7 fl (80.0-96.0); RED BLOOD COUNT 3.13 10^6/uL (4.30-6.10); WHITE BLOOD COUNT 11.3 10^3/uL (4.0-10.0)
[2021-01-25 05:42] LABS: PLATELET COUNT, AUTOMATED 340 10^3/uL (150-450)
[2021-01-25 05:58] LABS: ALBUMIN 1.3 GM/DL (3.2-5.2); ALT/SGPT 35 U/L (12-78); BILIRUBIN,TOTAL 0.4 MG/DL (0.2-1.0); BLOOD UREA NITROGEN 10 MG/DL (7-18); CALCIUM LEVEL 8.1 MG/DL (8.5-10.1); CARBON DIOXIDE LEVEL 32 MEQ/L (21-32); CHLORIDE LEVEL 97 MEQ/L (98-107); CREATININE FOR GFR 0.73 MG/DL (0.70-1.30); GLOMERULAR FILTRATION RATE > 60.0 (>56); GLUCOSE, FASTING 120 MG/DL (70-100); POTASSIUM SERUM 4.1 MEQ/L (3.5-5.1); SODIUM LEVEL 134 MEQ/L (136-145); TOTAL PROTEIN 6.1 GM/DL (6.4-8.2)
[2021-01-25 06:00] VITALS: BP 156/87
[2021-01-25 07:33] LABS: ANISOCYTOSIS 1+; ATYPICAL LYMPH 1 % (0-5); EOSINOPHILS 2 % (0-3); LYMPHOCYTES 23 % (16-44); METAMYELOCYTES 2 % (0-0); MONOCYTES 3 % (0-5); MYELOCYTES 2 % (0-0); NEUTROPHILS 67 % (28-66); PLATELET ESTIMATE NORMAL (NORMAL)
[2021-01-25] MEDS: SUCRALFATE SUSP 1GM/10ML UD PO SCH ×2 (08:00→11:07)
[2021-01-25] MEDS: PANTOPRAZOLE 40MG TAB (PROTONIX) PO SCH (08:00)
[2021-01-25] MEDS: FLUCONAZOLE 100 MG TAB PO SCH (08:00)
[2021-01-25] MEDS: MIRALAX *UNIT DOSE* 17GM PACKET PO SCH (08:00)
[2021-01-25] MEDS: HEPARIN SOD (PORCINE) 5000UNITS/ML 1ML VIAL/SYRINGE SQ SCH (08:00)
[2021-01-25] MEDS ORDERED: MAGNESIUM CITRATE 300 ML BTL PO ONE (08:30)
--- NOTE | 2021-01-25 09:24 | IPN ---
PROGRESS NOTE DATE: 01/24/2021 SUBJECTIVE: Guzman feels great. He has been diuresed and has lost quite a bit of weight. He does not feel bloated anymore. He has been constipated. He has had no fevers or chills. No nausea, vomiting or diarrhea. He had his esophageal echocardiogram done by Dr. Lagunas yesterday which did not show any vegetation. OBJECTIVE: GENERAL APPEARANCE: Healthy looking gentleman in no acute distress. HEART: Normal S1 and S2. No murmurs, rubs or gallops. LUNGS: Clear. No wheezes, rales or rhonchi. ABDOMEN: Soft, nontender. No hepatosplenomegaly. EXTREMITIES: No clubbing or cyanosis. +1 pitting edema in the lower extremities. MUSCULOSKELETAL: He has bilateral shoulder sutures in place along the clavicle with no redness. He is able to move both shoulders with good range of motion. NEUROLOGIC: Normal. Pathology from surgery shows distal clavicles both with acute osteomyelitis. LABORATORY DATA: White count 7.5, hemoglobin 7, hematocrit 21.8, platelets 239,000, 70% neutrophils, 23% lymphocytes, 3% monocytes. Patient received a blood transfusion and his repeat hemoglobin was 26.1. Hemoglobin was 8.5 and hematocrit 26.1. Culture from the left shoulder was positive for MSSA. Blood cultures on 01/21 were no growth after 72 hours. Blood cultures from 01/19: One was positive for MSSA; 01/18 two were negative. IMPRESSION: 1. Septic arthritis of both shoulders with acute osteomyelitis of the clavicles, on IV Nafcillin. The patient did not want to be hooked up to his continuous infusion and therefore the patient will be switched from Nafcillin to Cefazolin 2 grams IV every 8 hours which will be a push medication and therefore the patient will only receive every 8 hour dosing. Transesophageal echocardiogram was negative for any endocarditis. The patient will be treated for Staph aureus septic arthritis and osteomyelitis with four weeks of antibiotics with end of therapy scheduled for 02/17. 2. GI bleeding, no Pantoprazole, switched to 40 mg p.o. b.i.d. with continued anemia. 3. Pseudomembrane noted on endoscopy although no pathology was sent. The patient is being treated with fluconazole for presumptive Camille esophagitis. Patient does not have any dysphagia. Continue fluconazole for a total of 10 days. PLAN: Consult [facility] for home IV antibiotics. The patient could be discharged home tomorrow. He will switched to Cefazolin 2 grams every 8 hours, a prescription has been written and given to his nurse at bedside Paula pickett. Blood work will be CBC basic, CRP, ESR to be done weekly. The patient will have dressing changes by his home infusion nurse weekly. He will follow-up at Dr. Godinez's office in two weeks.
[2021-01-25] MEDS ORDERED: ISOVUE-370 76% 100ML VIAL As Ordered ONE (11:23)
[2021-01-25] MEDS ORDERED: PANT40TA29 PO (12:14)
[2021-01-25] MEDS ORDERED: SUCR1ORA PO (12:14)
[2021-01-25] MEDS ORDERED: PERCOCET PO (12:14)
[2021-01-25] MEDS ORDERED: FLUC100T PO (12:14)
--- NOTE | 2021-01-25 13:04 | IPN ---
PROGRESS NOTE DATE: 01/25/2021 Guzman is doing great. He is anxious to go home. [facility] infusion nurse, Minesh, is coming to do the teaching today for his home intravenous (IV) antibiotics. He has had no fever or chills. No nausea, vomiting, or diarrhea. His last temperature was 4 days ago. Temperature is 98.1, pulse 76, respirations 16, blood pressure 156/87, oxygen saturation 96% on room air. HEART: Normal S1, S2. No murmurs, rubs, or gallops. LUNGS: Clear. No wheezes, rales, or rhonchi. ABDOMEN: Soft, nontender. Bilateral shoulder extension and flexion 90 degrees. There is no redness along the incision site along the clavicle. He has mild tenderness. Right ankle: Mild tenderness along the lateral malleolus and trace edema. Left ankle: No edema. No tenderness. Ankles both have normal range of motion, +2 dorsalis pedis pulses. LABORATORY DATA: White count 11.3, hemoglobin 8.9, hematocrit 28.4, platelets 340, 67% neutrophils, 23% lymphocytes, 3% monocytes. Sodium 134, potassium 4.1, chloride 97, bicarbonate 32, BUN 10, creatinine 0.73, glucose 120, calcium 8.1. AST 35, ALT 35, alkaline phosphatase 74, total protein 6.1, albumin 0.3. IMPRESSION: 1. Acute osteomyelitis of both clavicles with Staphylococcus aureus bacteremia. Transesophageal echocardiogram was negative for endocarditis. The patient will be discharged home today on cefazolin 2 grams IV every 8 hours for a total of 4 weeks. His end of treatment will be February 17. 2. Questionable candidal esophagitis. The patient will be treated with 10 days of fluconazole. Patient does not have any dysphagia. 3. Gastrointestinal (GI) bleeding, on pantoprazole, stable. Patient needs to followup at the infectious disease clinic in 10-14 days. He will have weekly labs, complete blood count (CBC), C-reactive protein (CRP), basic, erythrocyte sedimentation rate (ESR). [facility] infusion nurse coming to do the teaching today.
--- NOTE | 2021-01-25 13:05 | REP ---
INDICATION: ABD PAIN, WEIGHT LOSS. COMPARISON: 01/17/2021, 01/10/2021. TECHNIQUE: Bolus 100 mL Isovue 370 scanning to the abdomen and pelvis with coronal and sagittal reconstructions. FINDINGS: CT abdomen: Lung bases show increase in size of the small right pleural effusion and a trace left pleural effusion now present. There have developed press of atelectatic changes with patchy and infiltrates in both lower lobes right much greater than left. Heart is not enlarged. There is some pericardial thickening or fluid over the anterior margin of the heart, non posteriorly liver is without any acute finding. The gallbladder is adequately filled today without calcified stone or mass. No intrahepatic biliary dilatation. Pancreas is normal. Spleen was unremarkable. Previously noted ascites in the right peritoneal gutter is nearly completely resolved. Adrenal glands are normal. Kidneys show symmetric enhancement with no stone or hydronephrosis. An indeterminate 1.3 cm hypodensity medial right kidney is again seen and unchanged. Perinephric stranding is again seen right greater than left. Moderate retained stool in the abdominal portion of the colon without sign of colitis or diverticulitis. Small bowel loops grossly intact. No aortic aneurysm or dissection. No periaortic, other retroperitoneal or mesenteric pathologic sized lymphadenopathy. Lung window review of all CT slices shows no perforation or free air. There are subcutaneous the air bubbles in the left anterior abdominal wall, likely from abdominal wall injections. No associated abscess or fluid. Bone windows show the spine, ribs and lower sternum grossly intact. CT pelvis: The sacrum, SI joints pelvis and hips show minor degenerative changes stable with no acute finding. The bladder shows no wall thickening mass or stone. No dilated distal ureter. Distal left colon, sigmoid and rectum unremarkable. Small bowel loops intact. No inflammatory changes about the cecum. No pelvic free fluid. I see no ventral or inguinal hernia. No pathologic sized pelvic or inguinal adenopathy. Prostate has some calcifications and indents the bladder base IMPRESSION: 1. Progression of the patchy basilar infiltrates with more confluence on the right than left and development of trace left and increased right effusion compared to that previous study. 2. The small amount of ascites in the upper abdomen is diminished with minimal thickening of the lateral conal fascia below the right lobe of the liver. 3. Perinephric stranding again seen and an indeterminate 1.3 cm right renal lesion, stable. 4. Pleural thickening/fluid anteriorly is seen. 5. No other significant or new finding. <Electronically signed by Adam Bolden > 01/25/21 2728
[2021-01-25 14:00] VITALS: BP 122/66
[2021-01-25] MEDS: SODIUM CHLORIDE 0.9% INJ 10 ML SYR IV PRN (15:06)
--- NOTE | 2021-01-25 18:02 | DS.PDOC ---
Discharge Summary General Date of Admission Jan 16, 2021 at 09:55 Date of Discharge 01/25/21 Discharge Summary PROCEDURES PERFORMED DURING STAY: 1. Right acromioclavicular joint irrigation and debridement and bone biopsy. 2. Left acromioclavicular joint irrigation and debridement and bone biopsy. ADMITTING DIAGNOSES: MSSA sepsis with secondary infectious bursitis and septic arthritis Acute blood loss anemia/GI bleed Hypervolemic hyponatremia/acute diastolic CHF Fever Transaminitis Bilateral shoulder pain Thrombocytopenia DISCHARGE DIAGNOSES: MSSA sepsis with secondary infectious bursitis and septic arthritis Acute blood loss anemia/GI bleed Hypervolemic hyponatremia/acute diastolic CHF Fever Transaminitis Bilateral shoulder pain Thrombocytopenia COMPLICATIONS/CHIEF COMPLAINT: Pneumonia. HISTORY OF PRESENT ILLNESS: 55-year-old male presented to the hospital feeling ill was diagnosed with possible pneumonia as well as hyponatremia who started having GI bleeding was found to have a bleeding duodenal ulcer who was found to have methicillin sensitive staph aureus on multiple blood cultures who may have possible septic arthritis he was taken to the operating room on 01/20/2021 for washout procedure. HOSPITAL COURSE: During the hospital stay the following issue addressed Acute blood loss anemia/GI bleed Secondary to GI bleed EGD was done on 01/18/2021 and was found to have a a duodenal ulcer that had an adherent clot on continue fluconazole empirically for possible fungal esophagitis for 14 days in total Patient received PPI and sucralfate MSSA bacteremia Most likely secondary to infectious bursitis and septic arthritis of the shoulder with evidence of septic emboli to the lungs Staphylococcus aureus methicillin-sensitive Staphylococcus aureus (MSSA) sepsis with secondary infectious bursitis and septic arthritis of the shoulders status post incision and drainage (I&D) done by Dr. Ruby with also evidence of septic emboli to the lungs. The patient is currently on IV nafcillin 2 grams every four hours and has negative blood cultures from 01/18. Patient will need 6 weeks of IV antibiotics JUVENCIO was done, no vegetations Hypervolemic hyponatremia/acute diastolic CHF Most likely secondary to acute diastolic CHF Echo was done on 01/18/2021 and showed diastolic dysfunction with ejection fraction of 55 to 60% BNP elevated to 1338 Patient received fluid restriction Patient received Lasix IV Cardiac diet, I's and O's Improved DISCHARGE MEDICATIONS: Please see below. ALLERGIES: Please see below. PHYSICAL EXAMINATION ON DISCHARGE: VITAL SIGNS: Please see below. GENERAL APPEARANCE: NAD HEENT: no scleral icterus, no JVD, EOMI CARDIOVASCULAR: S1S2 LUNGS: Diminished lung sounds bilaterally ABDOMEN: soft & not tender w palpation MUSCULOSKELETAL: no cyanosis, + 1 pitting edema bilaterally INTEGUMENT: no generalized pallor NEUROLOGICAL: cranial nerve function from 2-12 intact, follows commands, speech not dysarthric LABORATORY DATA: Please see below. PROGNOSIS: Fair ACTIVITY: [As tolerated]. DIET: Cardiac DISPOSITION: Home, Self-Care. DISCHARGE INSTRUCTIONS: Continue IV therapy with antibiotics as recommended ITEMS TO FOLLOWUP ON ON OUTPATIENT: Follow-up with ID specialist in 2 weeks, follow-up with PCP in 3 to 5 days DISCHARGE CONDITION: [Stable]. TIME SPENT ON DISCHARGE:40minutes. Vital Signs/I&Os Vital Signs Date Time Temp Pulse Resp B/P (MAP) Pulse Ox O2 Delivery O2 Flow Rate FiO2 01/25/21 15:07 18 97 Room Air 01/25/21 14:00 98.0 76 122/66 (84) I&O- Last 24 Hours up to 6 AM 01/25/21 06:00 Intake Total 1800 ml Output Total 3840 ml Balance -2040 ml Laboratory Data Labs 24H Laboratory Tests 2 01/25/21 05:07: Immature Granulocyte % (Auto) , Neutrophils (%) (Auto) , Nucleated Red Blood Cells % (auto) 0.0, Neutrophils 67H, Lymphocytes (Manual) 23, Monocytes (Manual) 3, Eosinophils (Manual) 2, Metamyelocytes 2H, Myelocytes 2H, Atypical Lymphocytes 1, Anisocytosis 1+, Platelet Estimate NORMAL, Anion Gap 5L, Glomerular Filtration Rate > 60.0, Calcium Level 8.1L, Total Bilirubin 0.4, Aspartate Amino Transf (AST/SGOT) 35, Alanine Aminotransferase (ALT/SGPT) 35, Alkaline Phosphatase 74, C-Reactive Protein, Quantitative 12.00H, Total Protein 6.1L, Albumin 1.3L, Albumin/Globulin Ratio 0.3 CBC/BMP Laboratory Tests 01/25/21 05:07 Microbiology Microbiology 01/21/21 Blood Culture - Preliminary, Resulted No Growth after 72 hours. All specime... 01/21/21 Blood Culture - Preliminary, Resulted No Growth after 72 hours. All specime... 01/20/21 Gram Stain - Final, Complete 01/20/21 Surgical Biopsy Culture - Final, Complete Staphylococcus Aureus 01/20/21 Anaerobic Culture - Final, Complete 01/20/21 Gram Stain - Final, Complete 01/20/21 Surgical Biopsy Culture - Final, Complete 01/20/21 Anaerobic Culture - Final, Complete 01/20/21 Anaerobic Culture - Final, Complete 01/20/21 Gram Stain - Final, Complete 01/20/21 Body Fluid Culture - Final, Complete Staphylococcus Aureus 01/20/21 Anaerobic Culture - Final, Complete 01/20/21 Gram Stain - Final, Complete 01/20/21 Body Fluid Culture - Final, Complete 01/20/21 Gram Stain - Final, Complete 01/20/21 Body Fluid Culture - Final, Complete 01/20/21 Anaerobic Culture - Final, Complete 01/20/21 Gram Stain - Final, Complete 01/20/21 Body Fluid Culture - Final, Complete 01/20/21 Gram Stain - Final, Complete 01/20/21 Body Fluid Culture - Final, Complete 01/20/21 Gram Stain - Final, Complete 01/20/21 Body Fluid Culture - Final, Complete 01/19/21 Blood Culture - Final, Complete Staphylococcus Aureus 01/18/21 Blood Culture - Final, Complete NO GROWTH AFTER 5 DAYS 01/18/21 Blood Culture - Final, Complete NO GROWTH AFTER 5 DAYS 01/17/21 Blood Culture - Final, Complete NO GROWTH AFTER 5 DAYS 01/17/21 Blood Culture - Final, Complete Staphylococcus Aureus 01/17/21 Gram Stain - Final, Complete 01/17/21 Sputum Culture - Final, Complete Yeast Like Organism 01/16/21 Stool Occult Blood (JONATHAN) - Final, Complete 01/16/21 Blood Culture - Final, Complete Staphylococcus Aureus 01/16/21 Urine Culture - Final, Complete Staphylococcus Aureus 01/16/21 Blood Culture - Final, Complete Staphylococcus Aureus 01/16/21 Blood Culture - Final, Complete Staphylococcus Aureus Discharge Medications Scheduled Fluconazole (Fluconazole) 100 Mg Tablet, 200 MG PO DAILY Pantoprazole Sodium (Pantoprazole Sodium) 40 Mg Tablet.dr, 40 MG PO BID Sucralfate (Sucralfate) 1 Gm/10 Ml Oral.susp, 1 GM PO ACHS Scheduled PRN Oxycodone/Acetaminophen (Oxycodone-Acetaminophen 5-325) 1 Each Tablet, 2 TAB PO Q6H PRN for MODERATE PAIN (PS 5-7) Allergies Coded Allergies: latex (Verified Allergy, Unknown, 01/10/21) rash/hives GREGORIO ANDERSON DO Jan 25, 2021 18:02
[2021-01-30 14:58] LABS: SPECIMEN SOURCE SEE SEPARATE REPORT
== END 2021-01-25 15:56 | disposition home or self-care (01) | DRG 853 ==
LOC: M ED 06:59 → M ED INP 09:55 → ENRESERV 10:19 → M MSPAV 10:59 → M PCU 01-17 16:10 → M MSPAV 01-20 01:11
PROVIDERS: ADMIT Family Medicine; ATTEND Internal Medicine
PROC: 30233N1 Transfusion of Nonautologous Red Blood Cells into Peripheral Vein, Percutaneous Approach (ICD-10-PCS; 2021-01-17)
PROC: 0DJ08ZZ Inspection of Upper Intestinal Tract, Via Natural or Artificial Opening Endoscopic (ICD-10-PCS; 2021-01-18)
PROC: 0PB Upper Bones, Excision (ICD-10-PCS; 2021-01-20)
PROC: 0R9 Upper Joints, Drainage (ICD-10-PCS; 2021-01-20)
PROC: 0R9 Upper Joints, Drainage (ICD-10-PCS; 2021-01-20)
PROC: 0Y9K3ZX Drainage of Right Ankle Region, Percutaneous Approach, Diagnostic (ICD-10-PCS; 2021-01-20)
PROC: 0S9F3ZZ Drainage of Right Ankle Joint, Percutaneous Approach (ICD-10-PCS; 2021-01-20)
PROC: 0PB90ZX Excision of Right Clavicle, Open Approach, Diagnostic (ICD-10-PCS; principal; 2021-01-20 16:32)
PROC: 02HV33Z Insertion of Infusion Device into Superior Vena Cava, Percutaneous Approach (ICD-10-PCS; 2021-01-22)
DX: A41.01 Sepsis due to Methicillin susceptible Staphylococcus aureus (principal); J18.9 Pneumonia, unspecified organism; K26.0 Acute duodenal ulcer with hemorrhage; I26.90 Septic pulmonary embolism without acute cor pulmonale; I50.31 Acute diastolic (congestive) heart failure; E87.1 Hypo-osmolality and hyponatremia; D62 Acute posthemorrhagic anemia; M00.89 Polyarthritis due to other bacteria; B37.81 Candidal esophagitis; I38 Endocarditis, valve unspecified; F17.210 Nicotine dependence, cigarettes, uncomplicated; F12.10 Cannabis abuse, uncomplicated; R74.01 Elevation of levels of liver transaminase levels; D69.6 Thrombocytopenia, unspecified; Z20.822 Contact with and (suspected) exposure to COVID-19; Z91.040 Latex allergy status; Z98.1 Arthrodesis status; R07.89 Other chest pain; M71.111 Other infective bursitis, right shoulder; M71.112 Other infective bursitis, left shoulder

== ENCOUNTER → 2021-01-29 | Outpatient (CLI) | payer MEDICARE ==
[~2021-01-29] MED LIST: FLUC100T PO; PANT40TA29 PO; PERCOCET PO; SUCR1ORA PO
--- NOTE | 2021-01-29 16:41 | REP ---
INDICATION: SURGICAL AFTERCARE. COMPARISON: None. TECHNIQUE: Two views of the clavicles were obtained. FINDINGS: Position is normal bilaterally. Indistinct cortex of the distal right clavicle is noted, exact etiology indeterminate. No other abnormality is identified. A left entering venous catheter is partially visualized. IMPRESSION: Indistinct cortex of the distal right clavicle otherwise unremarkable examination. <Electronically signed by Alexis Harris > 01/29/21 [id number]
== END ==
LOC: M SOG 08:10
PROVIDERS: ATTEND Orthopaedic Surgery
DX: Z47.89 Encounter for other orthopedic aftercare (principal); Z95.828 Presence of other vascular implants and grafts

== ENCOUNTER → 2021-01-29 | Outpatient (REF) | payer MEDICARE ==
[2021-01-29 12:21] LABS: BASO # 0.1 10^3/uL (0.0-0.2); BASO % 1.1 % (0.0-1.0); EOS # 0.1 10^3/uL (0.0-0.5); EOS % 0.5 % (0.0-3.0); HEMATOCRIT 27.4 % (42.0-52.0); HEMOGLOBIN 8.3 g/dl (13.5-17.5); LYMPH # 3.6 10^3/uL (1.5-5.0); LYMPH % 30.7 % (24.0-44.0); MEAN CORPUSCULAR HEMOGLOBIN 28.3 pg (27.0-33.0); MEAN CORPUSCULAR HGB CONC 30.3 g/dl (32.0-36.5); MEAN CORPUSCULAR VOLUME 93.5 fl (80.0-96.0); MONO # 0.8 10^3/uL (0.0-0.8); NEUTROPHILS # 6.7 10^3/uL (1.5-8.5); PLATELET COUNT, AUTOMATED 392 10^3/uL (150-450); RED BLOOD COUNT 2.93 10^6/uL (4.30-6.10); WHITE BLOOD COUNT 11.6 10^3/uL (4.0-10.0)
[2021-01-29 12:48] LABS: ERYTHROCYTE SEDIMENTATION RATE 106 mm/hr (0-20)
[2021-01-29 13:26] LABS: BLOOD UREA NITROGEN 8 MG/DL (7-18); C REACTIVE PROTEIN QUANTITATIV 6.45 MG/DL (0.00-0.30); CALCIUM LEVEL 8.6 MG/DL (8.5-10.1); CARBON DIOXIDE LEVEL 26 MEQ/L (21-32); CHLORIDE LEVEL 106 MEQ/L (98-107); CREATININE FOR GFR 0.79 MG/DL (0.70-1.30); GLOMERULAR FILTRATION RATE > 60.0 (>56); GLUCOSE, FASTING 117 MG/DL (70-100); POTASSIUM SERUM 3.9 MEQ/L (3.5-5.1); SODIUM LEVEL 139 MEQ/L (136-145)
== END ==
LOC: M LAB REF 11:58
PROVIDERS: ATTEND Internal Medicine Infectious Disease
DX: M00.819 Arthritis due to other bacteria, unspecified shoulder (principal); J18.9 Pneumonia, unspecified organism

== ENCOUNTER → 2021-02-04 | Outpatient (REF) | payer MEDICARE ==
[2021-02-04 15:57] LABS: BASO # 0.1 10^3/uL (0.0-0.2); BASO % 0.8 % (0.0-1.0); EOS # 0.4 10^3/uL (0.0-0.5); EOS % 2.9 % (0.0-3.0); HEMATOCRIT 28.1 % (42.0-52.0); HEMOGLOBIN 8.6 g/dl (13.5-17.5); LYMPH # 3.5 10^3/uL (1.5-5.0); LYMPH % 23.9 % (24.0-44.0); MEAN CORPUSCULAR HEMOGLOBIN 29.2 pg (27.0-33.0); MEAN CORPUSCULAR HGB CONC 30.6 g/dl (32.0-36.5); MEAN CORPUSCULAR VOLUME 95.3 fl (80.0-96.0); MONO # 0.8 10^3/uL (0.0-0.8); MONO % 5.5 % (2.0-8.0); NEUTROPHILS # 9.1 10^3/uL (1.5-8.5); NEUTROPHILS % 63.1 % (36.0-66.0); PLATELET COUNT, AUTOMATED 472 10^3/uL (150-450); RED BLOOD COUNT 2.95 10^6/uL (4.30-6.10); WHITE BLOOD COUNT 14.5 10^3/uL (4.0-10.0)
[2021-02-04 16:15] LABS: BLOOD UREA NITROGEN 9 MG/DL (7-18); C REACTIVE PROTEIN QUANTITATIV 2.25 MG/DL (0.00-0.30); CALCIUM LEVEL 8.1 MG/DL (8.5-10.1); CARBON DIOXIDE LEVEL 30 MEQ/L (21-32); CHLORIDE LEVEL 100 MEQ/L (98-107); CREATININE FOR GFR 0.72 MG/DL (0.70-1.30); GLOMERULAR FILTRATION RATE > 60.0 (>56); GLUCOSE, FASTING 98 MG/DL (70-100); POTASSIUM SERUM 4.3 MEQ/L (3.5-5.1); SODIUM LEVEL 136 MEQ/L (136-145)
[2021-02-04 17:09] LABS: ERYTHROCYTE SEDIMENTATION RATE 106 mm/hr (0-20)
== END ==
LOC: M LAB REF 14:38
PROVIDERS: ATTEND Internal Medicine Infectious Disease
DX: M00.819 Arthritis due to other bacteria, unspecified shoulder (principal); J18.9 Pneumonia, unspecified organism

== ENCOUNTER 2021-02-07 14:30 | Inpatient (IN) | payer MEDICARE ==
[~2021-02-07] VITALS: Ht 180.3 cm; Wt 74.4 kg
--- OUTSIDE RECORDS SUMMARY | 2021-02-07 14:43 | CCD ---
Author Author [facility] Organization [facility] Address Unknown Phone Unavailable Care Team Providers Care Customer Care Manager Name Role Phone Maring, Selvin PA Unavailable [...] Tallerico, D Wilbert DO Unavailable Unavailable Tallerico, Vkitoriya Atkins DO Unavailable Unavailable Tallerico, Viktoriya Atkins DO Unavailable Unavailable Tallerico, Viktoriya Atkins DO Unavailable Unavailable CONSUELO, Deanna FERGUSON MD Unavailable Unavailable CONSUELO, Deanna FERGUSON MD Unavailable Unavailable CONSUELO, Deanna FERGUSON MD Unavailable Unavailable CONSUELO, Deanna FERGUSON MD Unavailable Unavailable CONSUELO, Deanna FEGRUSON MD Unavailable Unavailable CONSUELO, Deanna FERGUSON MD Unavailable Unavailable CONSUELO, Deanna FERGUSON MD Unavailable Unavailable COSNUELO, Deanna FERGUSON MD Unavailable Unavailable CONSUELO, Deanna [...] Hugh HOLLIDAY MD Unavailable Unavailable MONA, Hugh HOLLIADY MD Unavailable Unavailable MONA, Hugh HOLLIDAY MD [...] HOLLIDAY MD Unavailable Unavailable Martinez, M Trina GIS SOFTWARE ENGINEER Unavailable Unavailable Martinez, M Trina GIS SOFTWARE ENGINEER Unavailable Unavailable Martinez, M Trina GIS SOFTWARE ENGINEER Unavailable Unavailable Martinez, M Trina GIS SOFTWARE ENGINEER Unavailable Unavailable Martinez, M Trina GIS SOFTWARE ENGINEER Unavailable Unavailable Martinez, M Trina GIS SOFTWARE ENGINEER Unavailable Unavailable Martinez, M Trina GIS SOFTWARE ENGINEER Unavailable Unavailable Martinez, M Trina GIS SOFTWARE ENGINEER Unavailable Unavailable Martinez, M Trina GIS SOFTWARE ENGINEER Unavailable Unavailable Martinez, M Trina GIS SOFTWARE ENGINEER Unavailable Unavailable Mratinez, M Trina GIS SOFTWARE ENGINEER Unavailable Unavailable Martinez, M Trina GIS SOFTWARE ENGINEER Unavailable Unavailable Martinez, M Trina GIS SOFTWARE ENGINEER Unavailable Unavailable Martinez, M Trina GIS SOFTWARE ENGINEER Unavailable Unavailable Martinez, M Trina GIS SOFTWARE ENGINEER Unavailable Unavailable Martinez, M Trina GIS SOFTWARE ENGINEER Unavailable Unavailable Martinez, M Trina GIS SOFTWARE ENGINEER Unavailable Unavailable Martinez, M Trina GIS SOFTWARE ENGINEER Unavailable Unavailable Martinez, M Trina GIS SOFTWARE ENGINEER Unavailable Unavailable Martinez, M Trina GIS SOFTWARE ENGINEER Unavailable Unavailable Martinez, M Trina GIS SOFTWARE ENGINEER Unavailable Unavailable Martinez, M Trina GIS SOFTWARE ENGINEER Unavailable Unavailable Martinez, M Trina GIS SOFTWARE ENGINEER Unavailable Unavailable Martinez, M Trina GIS SOFTWARE ENGINEER Unavailable Unavailable Martinez, M Trina GIS SOFTWARE ENGINEER Unavailable Unavailable Martinez, M Trina GIS SOFTWARE ENGINEER Unavailable Unavailable Martinez, M Trina GIS SOFTWARE ENGINEER Unavailable Unavailable GRACE, GAYATRI Unavailable Unavailable Travis, [place] Unavailable [phone] Travis, [place] Unavailable [phone] Travis, [place] Unavailable [phone] Travis, [place] Unavailable [phone] Travis, [place] Unavailable [phone] Travis, [place] Unavailable [phone] GILBERG, ALICIA PA Unavailable Unavailable GILBERG, ALICIA [...] is protected by Article 27-F of the [facility] Public Health law. If you continue you may have access to information: Regarding HIV / AIDS; Provided by facilities licensed or operated by the [facility] Office of Mental Health; or Provided by the [facility] Office for People With Developmental Disabilities. If such information is present, then the following [facility] mandated warning applies: This information has [...] further disc losure. Advance Directives Directive Description Multigraph Operator Computer System Validation Specialist Status Observation Descr iption Data Source(s) No Directive Type specified PT STATES NO ADVANCE DIRECTIVES completed No Directive Type specified [facility] No Directive Type specified PT STATES NO ADVANCE DIRECTIVES completed No Directive Type specified [facility] Encounters Encounter Providers Location Date Indications Data Source(s ) Outpatient Attender: Selvin JORDAN 01/10/20 08:04:53 AM EDT - 01/09/2021 08:54:21 AM EDT [facility] ([facility] ) Outpatient Attender: [place] Robles 10/18 11:09:22 AM EDT - 10/18/2020 12:01:52 PM EDT [facility] ([facility] ) Outpatient Attender: [facility] 05/09/2020 08:00:00 AM EST [facility] ([facility]) Outpatient Attender: [facility] 04/18/2020 07:00:00 AM EST [facility] ([facility]) Outpatient Attender: ALICIA FOY PAAt tender: PHYLLIS CORDERO MDAdmitter: ALICIA FOY PAConsultant: PHYLLIS CORDERO MDConsultant: ALICIA FOY PAConsultant: GAYATRI GRACE [facility] 04/15/2020 08:01:00 AM EST - 04/15/2020 09:43:00 AM [facility] Patient discharged. Outpatient Attender: ALICIA FOY PAAt tender: PHYLLIS CORDERO MDAdmitter: ALICIA FOY PAConsultant: PHYLLIS CORDERO MDConsultant: ALICIA JORDAN [facility] 04/03/2020 09:07:00 AM EST - 04/03/2020 09:35:00 AM [facility] Patient discharged. Recurring Patient Attender: Trina Martinez NPReferrer: MG AKERS MD 03/22/2020 10:36:21 AM [facility] Functional Status Immunizations Vaccine Date Status Description Data Source(s) COVID-19 VACCINE Moderna 07/20/2020 12:00:00 AM EDT completed [facility] Vaccine Series Complete: YESThis Data wa s Submitted to [facility] [employer]. COVID-19 VACCINE Moderna 06/22/2020 12:00:00 AM EDT completed [facility] Vaccine Series Complete: NOThis Data was Submitted to [facility] [employer]. Medications Medication Brand Name Start Date Product Form Dose Route Admi nistrative Instructions Pharmacy Instructions Status Indications Reaction Description Data Source(s) pantoprazole 40 MG Delayed Release Oral Tablet PANTOPRAZOLE SODIUM 01/25/2021 12:00:00 AM EDT tablet,delayed release (DR/EC) 60 T EDU ONE TABLET BY MOUTH TWICE A DAY TAKE ONE TABLET BY MOUTH TWICE A DAY SOLD: 01/27/2021 [facility] 100 mg 01/25/2021 12:00:00 AM EDT tablet 10 TAKE TWO TABLETS BY MOUTH EVERY DAY TAKE TWO TABLETS BY MOUTH EVERY DAY SOLD: 01/25/2021 [facility] 5-325 mg 01/25/2021 12:00:00 AM EDT tablet 20 2 TABLET BY MOUTH EVERY 6 HOURS NEEDED FOR MODERATE PAIN MAXIMUM DAILY DOSE = 4 TABLETS 2 TABLET BY MOUTH EVERY 6 HOURS NEEDED FOR MODERATE PAIN MAXIMUM DAILY DOSE = 4 TABLETS SOLD: 01/25/2021 [facility] 100 mg/mL 01/25/2021 12:00:00 AM EDT suspension 600 TAKE 10ML BY MOUTH BEFORE MEALS AND AT BEDTIME TAKE 10ML BY MOUTH BEFORE MEALS AND AT BEDTIME SOLD: 01/25/2021 [facility] Cephalexin 500 MG Oral Capsule CEPHALEXIN 10/18/2020 12:00:00 AM EDT capsule 21 TAKE ONE CAPSULE BY MOUTH THREE TIMES A DAY FOR 7 DAYS TAKE ONE CAPSULE BY MOUTH THREE TIMES A DAY FOR 7 DAYS SOLD: 10/18/2020 [facility] Insurance Providers Payer name Policy type / Coverage type Policy ID Covered republican ID Covered republican's relationship to grimes Policy Grimes Plan Information UNINSURED COVID NOTNEEDED Patient is Insured NOTNEEDED MEDICARE BLUE PPO [id number] Patient is Insur ed [id number] Blue Shield Medicare P [id number] SELF [id number] EXCELLUS BCBS MEDICARE [id number] Dione [id number] Blue Shield Medicare P [id number] SELF [id number] [employer]BS MEDICARE [id number] Dione [id number] [facility] MEDICARE BLUE PPO G [id number] Self [id number] [employer]BS MEDICARE [id number] Dione [id number] MEDICARE BLUE PPO [id number] SP [id number] [employer] Blue Cross and Blue Shield - [place] Blue Cross/B lue Shield [id number] Self [id number] [employer] Blue Cross and Blue [place] Blue Cross/ Blue Shield [id number] Self [id number] MEDICARE BLUE PPO [id number] SP [id number] SELF PAY ONLY [id number] SP [id number] EXCELLUS BCBS MEDICARE Medicare [facility] EXCELLUS BCBS O [id number] S [id number] MEDICARE M [id number] S [id number] A BLUE CROSS O [id number] S [id number] MEDICARE BLUE PPO [id number] SP [id number] Problems, Conditions, and Diagnoses No Information Surgeries/Procedures Procedure Description Date Indications Data Source(s) RADEX FOOT COMPLETE MINIMUM 3 VIEWS 04/18/2020 12:00:0 0 AM EST [facility] ([facility]) Results ID Date Data Source [id number] 01/23/2021 10:43:00 AM EDT [facility] Name Value Range Interpretation Code Description Data Maryann rce(s) Supporting Document(s) SARS coronavirus 2 RNA [Presence] in Res piratory specimen by DHARMESH with probe detection NEGATIVE [facility] This lab was ordered by [facility] a nd reported by [facility]. ID Date Data Source [id number] 01/16/2021 07:14:00 AM EDT [facility] Name Value Range Interpretation Code Description Data Maryann rce(s) Supporting Document(s) SARS coronavirus 2 RNA [Presence] in Res piratory specimen by DHARMESH with probe detection NEGATIVE [facility] This lab was ordered by [facility] a nd reported by [facility]. ID Date Data Source [id number] 01/10/2021 11:13:00 PM EDT [facility] Name Value Range Interpretation Code Description Data Maryann rce(s) Supporting Document(s) SARS coronavirus 2 RNA [Presence] in Res piratory specimen by DHARMESH with probe detection NEGATIVE [facility] This lab was ordered by [facility] a nd reported by [facility]. ID Date Data Source [id number] 01/10/2021 06:54:00 PM EDT [facility] Name Value Range Interpretation Code Description Data Maryann rce(s) Supporting Document(s) SARS-CoV-2 (COVID 19) NEGATIVE - SARS-CoV-2 (COVID19) [facility] This lab was ordered by [facility] a nd reported by [facility]. ID Date Data Source [id number] 01/09/2021 08:30:00 AM EDT [facility] Name Value Range Interpretation Code Description Data Maryann rce(s) Supporting Document(s) SARS-CoV-2 RNA Resp Ql DHARMESH+probe NOT DETECTED [facility] This lab was ordered by [facility] and reported by [facility]. ID Date Data Source [id number] 04/20/2020 01:18:04 PM EST [facility] Note status: FINAL (SIGNED)Full name: SIVAKUMAR HUBERate of : 1965Visit ID: [id number] record number: [id number] Care Physician: NONE, NONEAge: 54YSex: MaleRoom location: PRINGLEEXAMBed location: [facility] 2Date of service: 04/15/2020 08:12Creation date: 04/15/2020 [...] HistoryPast medical/surgical history reviewedHome MedicationsHome medications r evKikeergiesAllergies reviewedLast Verified By: YARIEL HUBER RN on [...] rce(s) Supporting Document(s) ID Date Data Source [id number] 04/18/2020 08:14:00 AM [facility] Name Value Range Interpretation Code Description Data Maryann rce(s) Supporting Document(s) Foot, Complete LT Laboratory test result [facility] ([facility]) ID Date Data Source [id number] 04/15/2020 08:39:25 AM EST [facility] 04/15/2020 8:27 AMLEFT FOOT X-RAYSCLINICA [...] and agree with or edited the findings.[facility] submits Radiology results to [facility] then provides those same results to [facility]. Allresults are available to [facility] and [facility] provider portalusers. [facility] DICOM images are available to [facility] provider portal users only. [facility] DICOMimages are not available to the [facility] provider portal users. There isno current [facility] cross-[facility] functionality allowing [facility] to be [facility] to [facility] connectivity.Interpreted By: Antione Sanders M.D.Electronically signed By: Gayatri Grace M.D., MBA, FACRRead By: GAYATRI GRACEDate: 04/15/2020 08:36 Name Value Range Interpretation Code Description Data Maryann rce(s) Supporting Document(s) ID Date Data Source [id number] 04/15/2020 08:37:39 [facility] 8:28 AMLEFT ANKLE X-RAYSCLINIC AL INFORMATION: PAIN, UNSPECIFIED, -- PAIN, UNSPECIFIEDCOMPARISON: None.PROCEDURE: AP, lateral, and mortise projections of the left ankle were obtained.IMPRESSION/FINDINGS:Corticated ossific fragment at the tip of the medial malleolus, injury ofchronic nature. No acute osseous abnormality appreciated. No significant anklejoint effusion.END OF IMPRESSIONI have personally reviewed the images and the Resident's/Fellow'sinterpretation and agree with or edited the findings.[facility] submits Radiology results to [facility] then provides those same results to [facility]. Allresults are available to [facility] and [facility] provider portalusers. [facility] DICOM images are available to [facility] provider portal users only. [facility] DICOMimages are not available to the [facility] provider portal users. There isno current [facility] cross-[facility] functionality allowing images to be available [facility] to [facility] connectivity.Interpreted By: Isaura Moe MDElectronically signed By: Gayatri Grace M.D., MBA, FACRReaviktoriya By: GAYATRI GRACEDate: 04/15/2020 08:34 Name Value Range Interpretation Code Description Data Maryann rce(s) Supporting Document(s) ID Date Data Source [id number] 04/05/2020 11:15:16 AM EST [facility] al Note status: FINAL (SIGNED)Full name: SIVAKUMAR HUBERate of : 1965Visit ID: [id number] record number: [id number] Care Physician: NONE, NONEAge: 54YSex: MaleRoom location: [facility] 3Date of service: 04/03/2020 09:36Creation date: 04/03/2020 [...] 929 Condition: UnchangedDischarge plan: Quarantine, follow labs, ejxs-cnq-ovamipe remedies for symptoms as needed.Midlevel signature: Clarke OROSCOlevel signature date: 04/03/2020 09:38Physician signature: PEPITO FOWLERhyeyal signature date: 04/05/2020 11:13 Name Value Range Interpretation Code Description Data Maryann rce(s) Supporting Document(s) ID Date Data Source [id number] 04/05/2020 11:15:14 AM [facility]: FINAL (SIGNED)Patient name: Reji NARANJO of : 1965Visit ID: [id number] record number: [id number]: 54YSex: MaleRoom location: [facility] 3Date of service: 04/03/2020 15:10Creation date: 04/03/2020 15:10Created by: Dagoberto FOYl.[facility]_Care_Physician: NONE, NONEProgress: Spoke with patient, identified with 2 forms of identification, notified him of a COVID-19 negative test result.Midlevel signature: ALICIA FOY PAMidlevel signature date: 04/03/2020 15:10Physician signature: PEPITO FOWLERhysician signature date: 04/05/2020 11:13 Name Value Range Interpretation Code Description Data Maryann rce(s) Supporting Document(s) ID Date Data Source [id number] 04/03/2020 09:24:00 AM EST [facility] Name Value Range Interpretation Code Description Data Maryann rce(s) Supporting Document(s) SARS-CoV-2 RdRp gene Resp Ql DHARMESH+probe Negative [facility] This lab was ordered by [facility] and reported by [facility]. ID Date Data Source [id number] 04/03/2020 01:04:00 PM EST [facility] Name Value Range Interpretation Code Description Data Maryann rce(s) Supporting Document(s) COVID-19, PCR NEGATIVE NEGATIVE [facility] Negative results do not preclude SARS-Co V-2 infection and should not be used as the sole basis for patient management decisions.Testing was performed using the [employer] NOW COVID-19 test. This test has been authorized by FDA under an Emergency Use Authorization (EUA). Procedure Social History No Information Vital Signs ID Date Data Source UNK Name Value Range Interpretation Code Description Data Source(s) Body weight 175.00 [lb_av] 175.00 [lb_av] [facility] ([facility]) reported Body weight 79.380 kg 79.380 kg [facility] ([facility]) Body height 70 [in_i] 70 [in_i] [facility] ([facility]) 5'10" Body height 177.8 cm 177.8 cm [facility] ([facility]) Body mass index (BMI) [Ratio] 25.1 kg/m2 25.1 k g/m2 [facility] ([facility]) Heart rate 90 /min 90 /min [facility] ([facility]) Body temperature 97.7 [degF] 97.7 [degF] [facility] Oxygen saturation in Arterial blood by Pulse oximetry 98 % 98 % [facility] ([facility]) Respiratory rate 16 /min 16 /min [facility] Body height 70 [in_i] 70 [in_i] [facility] ([facility]) 5'10" Respiratory rate 14 /min 14 /min [facility] Body mass index (BMI) [Ratio] 25.1 kg/m2 25.1 k g/m2 [facility] ([facility]) Heart rate 81 /min 81 /min [facility] ([facility]) Oxygen saturation in Arterial blood by Pulse oximetry 98 % 98 % [facility] ([facility]) Body height 177.8 cm 177.8 cm [facility] ([facility]) Body temperature 97.4 [degF] 97.4 [degF] [facility] ([facility]) Body weight 175.00 [lb_av] 175.00 [lb_av] [facility] T ([facility]) Body weight 79.380 kg 79.380 kg [facility] ([facility]) ID Date Data Source [id number] 04/20/2020 01:18:04 PM EST [facility] Name Value Range Interpretation Code Description Data Source(s) WEIGHT RECORDED 80 KG 80 KG [facility] spital Height 1803.4 CM 1803.4 CM [facility] ID Date Data Source [id number] 04/05/2020 07:53:39 PM EST [facility] Name Value Range Interpretation Code Description Data Source(s) WEIGHT RECORDED 79 KG 79 KG [facility] spital Height 177.8 CM 177.8 CM [facility]
[2021-02-07] MEDS ORDERED: ACETAMINOPHEN TAB 650MG DOSE (2X325MG) PO PRN (15:10)
--- NOTE | 2021-02-07 15:37 | HPEPDOC ---
[facility] Medical History & Physical Date of Admission Feb 07, 2021 Date of Service: Feb 07, 2021 Attending Physician: Jerilyn Harmon MD History and Physical CHIEF COMPLAINT: Abdominal pain, n/v/d HISTORY OF PRESENT ILLNESS: Patient is a 55-year-old male with past medical history of recent hospitalization (01/16/21-01/25/21) where he was treated for MSSA bacteremia secondary to MSSA bacteremia 2/2 infectious bursitis, acute osteomyelitis of bilateral clavicles on IV Cefazolin, recent GI bleed 2/2 duodenal ulcer, HFpEF (EF 5560 percent) presented to directly from infectious disease clinic after presenting with increasing abdominal pain, nausea, vomiting, diarrhea over the past 24 hours. The patient has been receiving IV cefazolin as outpatient since discharge from the hospital and following up closely with Dr. Godinez (infectious disease). The patient states early this morning he developed acute nausea with vomiting, nonbloody. He's had a total of 10 vomiting episodes, chills, shortness of breath with increased pain only, nonbloody diarrhea 3 which is also foul-smelling watery. He has also felt increasingly weak with decreased appetite. He denies fevers, chest pain, cough, lightheadedness or dizziness. He had a follow-up at infectious disease clinic today where Dr. Godinez evaluated him and found him to look very ill. Labs showed elevated lactic acid, WBC 19.1, sinus tachycardic at 141. Abdominal pain was described to be primarily in the right and left lower quadrant; however, on exam he also displayed tenderness in the left and right upper quadrant. Hospitalists were called for direct admission from their office. Upon arrival to the hospital, vital signs were stable and tachycardia have resolved. The patient appeared ill and continued to have the abdominal pain. The patient admitted to dysuria as well as denied any new sexual contacts, penile discharge, new rashes. The patient was ultimately admitted to the hospitalist service for abdominal pain/diarrhea rule out infectious cause, SIRS. REVIEW OF SYSTEMS: CONSTITUTIONAL: Denies unexplained weight gain or weight loss, fever, night sweats EYES: Denies eye drainage, eye pain, visual changes, dry/irritated eye EARS, NOSE, MOUTH, THROAT: Denies difficulty hearing, ringing in ears, mouth sores, loose teeth, sore throat, facial numbness or pain NECK: Denies swollen glands CARDIOVASCULAR: Denies irregular heartbeat, racing heart, chest pains, swelling of feet or legs, pain in legs with walking RESPIRATORY: Denies night sweats, wheezing, sputum production, oxygen at home, coughing up blood, cough lasting > 1 month GASTROINTESTINAL: Denies constipation, bloody stool, heartburn GENITOURINARY: Denies bloody urine, urgency, leaking urine, impotence MUSCULOSKELETAL: Denies joint pain, muscle pain, leg swelling INTEGUMENTARY: Denies rash, itching, new skin lesion, change in existing skin lesion, hair loss or increase, breast changes. NEUROLOGICAL: Denies headaches, dizziness, difficulty walking, numbness or tingling PSYCHIATRIC: Denies depression, anxiety, recurrent bad thoughts, mood swings, hallucinations PAST MEDICAL HISTORY: Recent MSSA bacteremia 2/2 infectious bursitis, acute osteomyelitis of bilateral clavicles on IV Cefazolin followed by Dr. Godinez Recent GI bleed 2/2 duodenal ulcer HFpEF (EF 5560 percent) Hx of tobacco use PAST SURGICAL HISTORY: Carpal tunnel surgery Right acromioclavicular joint irrigation and debridement and bone biopsy Left acromioclavicular joint irrigation and debridement and bone biopsy EGD 01/18/21 JUVENCIO 12/2020 SOCIAL HISTORY: Smoker for over 30 years, quit 1 month ago. Denies alcohol or illicit drug use. Occasionally uses marijuana. Lives with his son locally. His primary care provider is the resident clinic in [place]. He is a full code. FAMILY HISTORY: No significant medical history per patient. ALLERGIES: Please see below. HOME MEDICATIONS: Please see below. PHYSICAL EXAMINATION: VS: Please see below CONSTITUTIONAL: Appears uncomfortable in bed , mild distress, AAO x 3 EYES: PERRLA, EOM intact HENT, MOUTH: Normocephalic, atraumatic, moist mucous membranes NECK: SUPPLE, no JVD, no lymphadenopathy, no carotid bruit CV: Regular rate and rhythm, S1S2 normal, no murmurs/rubs/gallops RESPIRATORY: Clear to auscultation bilaterally, no rales/rhonchi/wheezes GI: tenderness diffusely in abdomen, greater in right and left lower quadrant, BS positive in 4 quadrants, soft, nondistended, + guarding, no organomegaly : Deferred MUSCULOSKELETAL: Normal ROM. No cyanosis, clubbing, swelling, joint deformity, extremity edema INTEGUMENTARY: PICC line. Incisions with stitches of bilateral shoulders, appear well healing, no increased erythema, swelling or redness in this area. Otherwise skin is intact, no rashes, no lesions, no erythema NEUROLOGIC: Cranial Nerves II-XII are intact, no focal deficits PSYCHIATRIC: Mood and affect are normal LABORATORY DATA: Please see below IMAGING: F/u CT abd/pelvis F/u ECG F/u CXR MICROBIOLOGY: F/u blood cultures x 2 sets GI panel ordered UA ordered ASSESSMENT: 55-year-old male with past medical history of recent hospitalization (01/16/21-01/25/21) where he was treated for MSSA bacteremia secondary to MSSA bacteremia 2/2 infectious bursitis, acute osteomyelitis of bilateral clavicles on IV Cefazolin, recent GI bleed 2/2 duodenal ulcer, HFpEF (EF 5560 %) admitted to the hospitalist service for abdominal pain/diarrhea rule out infectious cause, SIRS. PLAN: Abdominal pain, n/v/d r/o infectious cause, SIRS + -WBC 19.1, LA 3, tachycardia in o/p office, dysuria -Has been on IV abx custodial, r/o C. diff -Denies any new sexual contacts, penile discharge or rashes -F/u CT abd/pelvis, blood cultures, UA, GI panel, COVID test, cycling lactic acids -CLD -pain control, morphine IV , IVFs, cefazolin and levofloxacin IV for abx coverage -Precautions -ID consulted SIRS + -r/o abdominal, urine, line, blood -mild SOB only with pain but f/u CXR -Tx with cefazolin and levofloxacin for now -See above for further treatment Recent MSSA bacteremia 2/2 infectious bursitis, acute osteomyelitis of bilateral clavicles on IV Cefazolin followed by Dr. Godinez -S/p Right acromioclavicular joint irrigation and debridement and bone biopsy, left acromioclavicular joint irrigation and debridement and bone biopsy -Still receiving IV cefazolin, following with Dr. Godinez as o/p -F/u recent blood cultures -Cefazolin continues. Recent GI bleed 2/2 duodenal ulcer -F/u CBC -No s/s of bleeding but pain is similar to duodenal ulcer pain patient states -Holding off on AC, f/u CT abd/pelvis -Patient states he completed sucralfate at home, will restart here, PPI HFpEF (EF 5560 percent) -mild SOB only with pain so unlikely in exacerbation -Watch for s/s of fluid overload -Recent echocardiogram, 2 gm sodium diet Hx of tobacco use -Quit 1 mo ago -No need for nicotine patch GI px -PPI DVT px -Teds/scds. AC CI with recent GI bleed. DISPOSITION: Admitted as acute inpatient. ID consulted to see. Plan is home at discharge. Home Medications Scheduled Fluconazole (Fluconazole) 100 Mg Tablet, 200 MG PO DAILY Pantoprazole Sodium (Pantoprazole Sodium) 40 Mg Tablet.dr, 40 MG PO BID Sucralfate (Sucralfate) 1 Gm/10 Ml Oral.susp, 1 GM PO ACHS Scheduled PRN Oxycodone/Acetaminophen (Oxycodone-Acetaminophen 5-325) 1 Each Tablet, 2 TAB PO Q6H PRN for MODERATE PAIN (PS 5-7) Allergies Coded Allergies: latex (Verified Allergy, Unknown, 01/10/21) rash/hives A-FIB/CHADSVASC A-FIB History Current/History of A-Fib/PAF?: No Current PO Anticoag Therapy: No Age/Risk Factor Scoring CHADSVASC: CHADSVASC Response (Comments) Value Age Risk Factor Age < 65 years old 0 Gender Risk Factor Male 0 Hx of CHF No 0 Hx of HTN No 0 Hx of Stroke/TIA/or VTE No 0 Hx of Diabetes No 0 Hx of Vascular Disease No 0 Total 0 Treatment Treatment ordered: Other Other anticoagulant ordered: scd/teds Jerilyn Harmon MD Feb 07, 2021 15:37
[2021-02-07 16:00] VITALS: BP 164/95
[2021-02-07] MEDS: PANTOPRAZOLE 40MG VIAL (C9113 PER 1) IV SCH (16:20)
[2021-02-07] MEDS: NS 1,000 ML IV SCH (16:20)
[2021-02-07] MEDS: ONDANSETRON 4MG/2ML VIAL IV PRN ×2 (16:21→20:15)
[2021-02-07] MEDS: SUCRALFATE SUSP 1GM/10ML UD PO SCH ×2 (16:22→20:08)
[2021-02-07] MEDS: LevoFLOXacin IV 500 MG in IV 1 EA IV SCH (17:09)
[2021-02-07] MEDS: LACTOBACILLUS ACIDOPHILUS CAP (BACID) PO SCH (17:09)
[2021-02-07] MEDS: MORPHINE 2 MG/ML 1ML VIAL (J2270) IV PRN ×2 (17:10→23:22)
[2021-02-07 17:11] LABS: INR 0.99; PROTHROMBIN TIME 13.5 SECONDS (12.7-14.5)
[2021-02-07 17:12] LABS: PARTIAL THROMBOPLASTIN TIME 31.6 SECONDS (25.9-37.0)
[2021-02-07] MEDS ORDERED: PANT40TA29 PO (17:15)
[2021-02-07] MEDS ORDERED: HOME MED LIST COMPLETE! XX SCH (17:15)
[2021-02-07 18:50] VITALS: BP 172/80
--- NOTE | 2021-02-07 18:51 | REP ---
INDICATION: r/o PNA COMPARISON: 01/16/2021 TECHNIQUE: PA and lateral. FINDINGS: Mediastinum and cardiac silhouette are normal. Subtle opacity at the right base suggests acute infiltrate. No effusion. No pneumothorax.. IMPRESSION: Right lower lobe opacities requires follow-up to resolution. <Electronically signed by Davon Wade > 02/07/21 [id number]
[2021-02-07 19:10] LABS: APPEARANCE, URINE CLOUDY (CLEAR); BACTERIA, URINE AUTO NEGATIVE (NEGATIVE); BILIRUBIN, URINE AUTO NEGATIVE (NEGATIVE); BLOOD, URINE BLOOD NEGATIVE (NEGATIVE); COLOR, URINE YELLOW (YELLOW); GLUCOSE, URINE (UA) AUTO NEGATIVE (NEGATIVE); KETONE, URINE AUTO TRACE mg/dL (NEGATIVE); LEUKOCYTE ESTERASE, URINE AUTO TRACE (NEGATIVE); MUCUS, URINE SMALL (NEGATIVE); NITRITE, URINE AUTO NEGATIVE (NEGATIVE); PROTEIN, URINE AUTO 3+ mg/dL (NEGATIVE); RBC, URINE AUTO 0 /HPF (0-3); SPECIFIC GRAVITY URINE AUTO 1.027 (1.002-1.035); SQUAMOUS EPITHELIAL CELL UR AU 0 /HPF (0-6); UROBILINOGEN, URINE AUTO 0.2 mg/dL (0.0-2.0); WBC, URINE AUTO 23 /HPF (0-3)
--- NOTE | 2021-02-07 19:57 | REPVR ---
PROCEDURE INFORMATION: Exam: CT Abdomen And Pelvis Without Contrast Exam date and time: 02/07/2021 6:18 PM Age: 55 years old Clinical indication: Fever; Additional info: Fevers, diarrhea, R/O colitis TECHNIQUE: Imaging protocol: Computed tomography of the abdomen and pelvis without contrast. Radiation optimization: All CT scans at this facility use at least one of these dose optimization techniques: automated exposure control; mA and/or kV adjustment per patient size (includes targeted exams where dose is matched to clinical indication); or iterative reconstruction. COMPARISON: CT ABD PELVIS WITH CONTRAST 01/25/2021 11:41 AM FINDINGS: Lungs: There has been resolution of some basilar pulmonary nodules (some of which were cavitary) and partial resolution of regions of consolidation. Small nodule still remain. Pleural spaces: There is been resolution of small bilateral pleural effusions. Liver: Normal. No mass. Gallbladder and bile ducts: No calcified stones. No ductal dilation. Pancreas: Normal. No ductal dilation. Spleen: Normal. No splenomegaly. Adrenal glands: Normal. No mass. Kidneys and ureters: There are punctate bilateral nonobstructing renal calculi. Stomach and bowel: No obstruction. The right colon is decompressed and colonic wall thickening and/or colitis cannot be excluded. Appendix: No evidence of appendicitis. Intraperitoneal space: No free air. No significant fluid collection. Vasculature: There is athrosclerotic disease involving the abdominal aorta and pelvis vessels without an aneurysm. Lymph nodes: No enlarged lymph nodes. Urinary bladder: Unremarkable as visualized. Reproductive: Unremarkable as visualized. Bones/joints: There are degenerative changes of the spine. Soft tissues: There is a fat containing left inguinal hernia. IMPRESSION: 1. There is been partial resolution of bibasilar pulmonary nodules (some of which were cavitary) and areas of consolidation, and continued follow-up is recommended. A follow-up noncontrast CT of the chest should be performed. 2. No acute intra-abdominal inflammatory change. However, colitis cannot be excluded. Electronically signed by: Salas Ocampo On 02/07/2021 19:56:55 PM
[2021-02-07 20:00] VITALS: BP 176/87
[2021-02-07] MEDS: ceFAZolin SOD 2 GM in IV 1 EA IV SCH (20:09)
[2021-02-07] MEDS ORDERED: NS 1,000 ML IV ONE (22:35)
[2021-02-08 00:09] VITALS: BP 162/79
[2021-02-08] MEDS: NS 1,000 ML IV SCH ×3 (02:34→17:09)
[2021-02-08] MEDS: ONDANSETRON 4MG/2ML VIAL IV PRN ×4 (02:34→19:49)
[2021-02-08 04:05] VITALS: BP 140/77
[2021-02-08] MEDS: ceFAZolin SOD 2 GM in IV 1 EA IV SCH ×3 (04:39→22:23)
[2021-02-08] MEDS: MORPHINE 2 MG/ML 1ML VIAL (J2270) IV PRN ×4 (05:27→19:51)
[2021-02-08 05:45] LABS: HEMATOCRIT 28.8 % (42.0-52.0); HEMOGLOBIN 9.2 g/dl (13.5-17.5); MEAN CORPUSCULAR HGB CONC 31.9 g/dl (32.0-36.5); MEAN CORPUSCULAR VOLUME 90.9 fl (80.0-96.0); RED BLOOD COUNT 3.17 10^6/uL (4.30-6.10); WHITE BLOOD COUNT 15.6 10^3/uL (4.0-10.0)
[2021-02-08 05:52] LABS: PLATELET COUNT, AUTOMATED 370 10^3/uL (150-450)
[2021-02-08 06:17] LABS: ALBUMIN 2.1 GM/DL (3.2-5.2); ALT/SGPT 11 U/L (12-78); BILIRUBIN,TOTAL 0.3 MG/DL (0.2-1.0); BLOOD UREA NITROGEN 16 MG/DL (7-18); CALCIUM LEVEL 8.8 MG/DL (8.5-10.1); CARBON DIOXIDE LEVEL 26 MEQ/L (21-32); CHLORIDE LEVEL 98 MEQ/L (98-107); CREATININE FOR GFR 0.68 MG/DL (0.70-1.30); GLOMERULAR FILTRATION RATE > 60.0 (>56); GLUCOSE, FASTING 133 MG/DL (70-100); POTASSIUM SERUM 4.2 MEQ/L (3.5-5.1); SODIUM LEVEL 131 MEQ/L (136-145); TOTAL PROTEIN 6.8 GM/DL (6.4-8.2)
[2021-02-08 08:00] VITALS: BP 117/84
[2021-02-08] MEDS: SUCRALFATE SUSP 1GM/10ML UD PO SCH ×4 (08:18→22:24)
[2021-02-08] MEDS: LACTOBACILLUS ACIDOPHILUS CAP (BACID) PO SCH ×2 (08:18→18:14)
[2021-02-08] MEDS: PANTOPRAZOLE 40MG VIAL (C9113 PER 1) IV SCH (08:18)
[2021-02-08 08:33] LABS: BLOOD UREA NITROGEN 15 MG/DL (7-18); CALCIUM LEVEL 9.7 MG/DL (8.5-10.1); CARBON DIOXIDE LEVEL 26 MEQ/L (21-32); CHLORIDE LEVEL 98 MEQ/L (98-107); CREATININE FOR GFR 0.85 MG/DL (0.70-1.30); GLOMERULAR FILTRATION RATE > 60.0 (>56); GLUCOSE, FASTING 140 MG/DL (70-100); POTASSIUM SERUM 4.6 MEQ/L (3.5-5.1); SODIUM LEVEL 133 MEQ/L (136-145)
[2021-02-08 09:43] LABS: C REACTIVE PROTEIN QUANTITATIV 1.03 MG/DL (0.00-0.30)
--- NOTE | 2021-02-08 09:43 | ECGEPIP ---
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
[2021-02-08 12:00] VITALS: BP 160/77
--- NOTE | 2021-02-08 13:10 | IPNPDOC ---
Date Seen The patient was seen on 02/08/21. Progress Note SUBJECTIVE: Improved n/v/d ;however, still has severe cramping. Morphine PRN for pain. ID to see. Denies chest pain, shortness of breath. No acute events overnight. OBJECTIVE: PHYSICAL EXAMINATION: VS: Please see below CONSTITUTIONAL: Appears uncomfortable in bed , mild distress, AAO x 3 EYES: PERRLA, EOM intact HENT, MOUTH: Normocephalic, atraumatic, moist mucous membranes NECK: SUPPLE, no JVD, no lymphadenopathy, no carotid bruit CV: Regular rate and rhythm, S1S2 normal, no murmurs/rubs/gallops RESPIRATORY: Clear to auscultation bilaterally, no rales/rhonchi/wheezes GI: tenderness diffusely in abdomen, greater in right and left lower quadrant, BS positive in 4 quadrants, soft, nondistended, + guarding, no organomegaly : Deferred MUSCULOSKELETAL: Normal ROM. No cyanosis, clubbing, swelling, joint deformity, extremity edema INTEGUMENTARY: PICC line. Incisions with stitches of bilateral shoulders, appear well healing, no increased erythema, swelling or redness in this area. Otherwise skin is intact, no rashes, no lesions, no erythema NEUROLOGIC: Cranial Nerves II-XII are intact, no focal deficits PSYCHIATRIC: Mood and affect are normal LABORATORY DATA: Please see below IMAGING: CT abd/pelvis: 1. There is been partial resolution of bibasilar pulmonary nodules (some of which were cavitary) and areas of consolidation, and continued follow-up is recommended. A follow-up noncontrast CT of the chest should be performed. 2. No acute intra-abdominal inflammatory change. However, colitis cannot be excluded. CXR: Right lower lobe opacities requires follow-up to resolution. MICROBIOLOGY: F/u blood cultures x 2 sets GI panel neg UA pos, UCx pending ASSESSMENT: 55-year-old male with past medical history of recent hospitalization (01/16/21-01/25/21) where he was treated for MSSA bacteremia secondary to MSSA bacteremia 2/2 infectious bursitis, acute osteomyelitis of bilateral clavicles on IV Cefazolin, recent GI bleed 2/2 duodenal ulcer, HFpEF (EF 5560 %) admitted to the hospitalist service for abdominal pain/diarrhea rule out infectious cause, SIRS. PLAN: Abdominal pain with n/v/d r/o 2/2 to colitis vs. 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 Godinez -S/p Right acromioclavicular joint irrigation and debridement and bone biopsy, left acromioclavicular joint irrigation and debridement and bone biopsy last admission -S/p TTE, ruled out endocarditis -Still receiving IV cefazolin, following with Dr. Godinez as o/p -F/u recent blood cultures -Cefazolin continues. Recent GI bleed 2/2 duodenal ulcer -F/u CBC -No s/s of bleeding but pain is similar to duodenal ulcer pain patient states -Holding off on AC -Sucralfate, PPI HFpEF (EF 5560 percent) -mild SOB only with pain so unlikely in exacerbation -Watch for s/s of fluid overload -Recent echocardiogram, 2 gm sodium diet Septic emboli in lungs, dx with MSSA bacteremia above -Seen on CXR this admission -No change, see treatment above Hx of tobacco use -Quit 1 mo ago -No need for nicotine patch GI px -PPI DVT px -Teds/scds. AC CI with recent GI bleed. DISPOSITION: Admitted as acute inpatient. ID following. Plan is home at discharge. VS, I&O, 24H, Fishbone Vital Signs/I&O Vital Signs Date Time Temp Pulse Resp B/P (MAP) Pulse Ox O2 Delivery O2 Flow Rate FiO2 02/08/21 12:12 18 02/08/21 12:00 97.6 76 160/77 (104) 100 Room Air I&O- Last 24 Hours up to 6 AM 02/08/21 06:00 Intake Total 2835.0 ml Output Total 350 ml Balance 2485.0 ml Laboratory Data 24H LABS Laboratory Tests 2 02/07/21 15:55: Coronavirus (COVID-19)(PCR) NEGATIVE 02/07/21 16:24: Prothrombin Time 13.5, Prothromb Time International Ratio 0.99, Activated Partial Thromboplast Time 31.6, Anion Gap 9, Glomerular Filtration Rate > 60.0, Lactic Acid Level 2.9*H, Calcium Level 9.7, Troponin I < 0.02 02/07/21 18:54: Urine Color YELLOW, Urine Appearance CLOUDYH, Urine pH 5.0, Urine Specific [place] 1.027, Urine Protein 3+H, Urine Glucose (Auto)(UA) NEGATIVE, Urine Ketones (Auto) TRACEH, Urine Blood NEGATIVE, Urine Nitrite NEGATIVE, Urine Bilirubin NEGATIVE, Urine Urobilinogen 0.2, Urine Leukocyte Esterase (Auto) TRACEH, Urine WBC (Auto) 23H, Urine RBC (Auto) 0, Urine Hyaline Casts (Auto) 1, Urine Bacteria (Auto) NEGATIVE, Urine Squamous Epithelial Cells 0, Urine Mucus (Auto) SMALL, Urine Sperm (Auto) 02/07/21 21:30: Lactic Acid Followup at 4 Hours 3.5*H 02/08/21 02:24: Lactic Acid Level 0.8 02/08/21 05:30: Procalcitonin <0.05 02/08/21 05:33: Nucleated Red Blood Cells % (auto) 0.0, Anion Gap 7L, Glomerular Filtration Rate > 60.0, Calcium Level 8.8, Total Bilirubin 0.3, Aspartate Amino Transf (AST/SGOT) 21, Alanine Aminotransferase (ALT/SGPT) 11L, Alkaline Phosphatase 114, C-Reactive Protein, Quantitative 1.03H, Total Protein 6.8, Albumin 2.1L, Albumin/Globulin Ratio 0.4 CBC/BMP Laboratory Tests 02/07/21 16:24 02/08/21 05:33 Microbiology Microbiology 02/07/21 Urine Culture, Received Pending 02/07/21 Blood Culture, Received Pending 02/07/21 Blood Culture, Received Pending Jerilyn Harmon MD Feb 08, 2021 13:10
[2021-02-08 16:00] VITALS: BP 132/94
--- NOTE | 2021-02-08 17:09 | CR.PDOC ---
General Date of Consultation: Feb 08, 2021 Referring Provider: Jerilyn Harmon MD Attending Physician: Petros Godinez MD Consultation REASON FOR CONSULTATION/CHIEF COMPLAINT: Abdominal pain, nausea, vomiting, diarrhea.. HISTORY OF PRESENT ILLNESS: Mr. 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 In the clinic patient noted to have burning urine sensation going on since 1 week and CVA tenderness on palpation. Patient was directly admitted to hospital for further management. Today patient reports to be feeling well, denies having any vomiting today in the hospital, no diarrhea denies having any rash. ALLERGIES: Please see below. HOME MEDICATIONS: Please see below. PAST MEDICAL HISTORY: Recent MSSA bacteremia 2/2 infectious bursitis, acute osteomyelitis of bilateral clavicles on IV Cefazolin followed by Dr. Godinez Recent GI bleed 2/2 duodenal ulcer HFpEF (EF 5560 percent) Hx of tobacco use PAST SURGICAL HISTORY: Carpal tunnel surgery Right acromioclavicular joint irrigation and debridement and bone biopsy Left acromioclavicular joint irrigation and debridement and bone biopsy EGD 01/18/21 JUVENCIO 12/2020 FAMILY HISTORY: Not significant SOCIAL HISTORY: Tobacco use: Patient smoked 30 years and quit 1 month ago. ETOH: Denies any alcohol use Illicit drug use: Occasionally uses marijuana IV drug use: Denies Other relevant social factors: REVIEW OF SYSTEMS: Constitutional: Reports having chills and night sweats, denies any weight loss, headaches. ENT: Denies any dysphagia, odynophagia, ear discharge, sore throat. Cardiovascular: Denies any chest pain, palpitations, orthopnea/PND. Respiratory: Denies shortness of breath, cough,pleuritic chest pain. Gastrointestinal (GI): Reports having nausea vomiting diarrhea, denies constipation, melena, hematochezia. Genitourinary: Denies dysuria, hematuria. Musculoskeletal: Denies any muscle pains or joint aches. Skin: Denies unsual rashes or ulcers. Hematology/Oncology: Denies any easy bleeding or bruising. Endocrine: Denies cold intolerance, heat intolerance, polydipsia, polyphagia, polyuria All other review of systems is negative. LABORATORY DATA: Please see below. General: Well developed, built: normal, oriented times three, laying in bed , no apparent distress. Eyes: Conjunctiva clear, pupils equal round and reactive to light and accommodation. EOM full, Fundus: not visualized. ENT: Hearing Bilateral normal. No nasal deviation, oropharynx clear with no lesions/erythema. Neck: supple, no masses, trachea midline, no thyroid nodules, masses, tenderness or enlargement. Cardiovascular: S1, S2, normal rhythm, no murmur. Respiratory: Chest is clear to auscultation bilaterally No rhonchi, wheezes or rubs. Abdomen: Soft, bowel sounds positive, no bruits. Nontender on palpation. Liver edge, spleen, kidney not felt, no masses. Extremities: No clubbing or cyanosis. No edema, no tenderness. 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 Skin: No rashes, lesions, ulcerations, subcutaneous nodules or induration. ASSESSMENT/PLAN: 55-year-old male patient with recent hospitalization for MSSA bacteremia and was being admitted after the clinic visit as patient was having profuse vomiting, diarrhea, sweating. Patient is on IV cefazolin 2 g every 8 hours given at home. Patient denies having any active symptoms today and reports his symptoms have resolved given that patient does not have any diarrhea noted of concern for C. difficile. Patient also got levofloxacin IV Given that patient had an episode of chills rapid improvement will get an MRI of the spine to rule out any discitis. As patient has mild tenderness on palpation of the thoracic spine we will get an MRI of the thoracic spine and lumbar spine to rule out any discitis [given that patient was tested positive for staph aureus bacteremia he would be at a high risk of developing bacteremia. Patient reported having burning urine and UA was positive for WBC and leukocyte esterase urine reflex culture pending. Vital Signs/I&O Vital Signs Date Time Temp Pulse Resp B/P (MAP) Pulse Ox O2 Delivery O2 Flow Rate FiO2 02/08/21 16:00 98.6 77 18 132/94 (107) 98 Room Air I&O- Last 24 Hours up to 6 AM 02/08/21 06:00 Intake Total 2835.0 ml Output Total 350 ml Balance 2485.0 ml Laboratory Data Labs 24H Laboratory Tests 2 02/07/21 18:54: Urine Color YELLOW, Urine Appearance CLOUDYH, Urine pH 5.0, Urine Specific [place] 1.027, Urine Protein 3+H, Urine Glucose (Auto)(UA) NEGATIVE, Urine Ketones (Auto) TRACEH, Urine Blood NEGATIVE, Urine Nitrite NEGATIVE, Urine Bilirubin NEGATIVE, Urine Urobilinogen 0.2, Urine Leukocyte Esterase (Auto) TRACEH, Urine WBC (Auto) 23H, Urine RBC (Auto) 0, Urine Hyaline Casts (Auto) 1, Urine Bacteria (Auto) NEGATIVE, Urine Squamous Epithelial Cells 0, Urine Mucus (Auto) SMALL, Urine Sperm (Auto) 02/07/21 21:30: Lactic Acid Followup at 4 Hours 3.5*H 02/08/21 02:24: Lactic Acid Level 0.8 02/08/21 05:30: Procalcitonin <0.05 02/08/21 05:33: Nucleated Red Blood Cells % (auto) 0.0, Anion Gap 7L, Glomerular Filtration Rate > 60.0, Calcium Level 8.8, Total Bilirubin 0.3, Aspartate Amino Transf (AST/SGOT) 21, Alanine Aminotransferase (ALT/SGPT) 11L, Alkaline Phosphatase 114, C-Reactive Protein, Quantitative 1.03H, Total Protein 6.8, Albumin 2.1L, Albumin/Globulin Ratio 0.4 CBC/BMP Laboratory Tests 02/08/21 05:33 Microbiology Microbiology 02/07/21 Urine Culture, Received Pending 02/07/21 Blood Culture - Preliminary, Resulted No growth after 24 hours . All specim... 02/07/21 Blood Culture, Received Pending Allergies Coded Allergies: latex (Verified Allergy, Unknown, 01/10/21) rash/hives Home Medications Scheduled Pantoprazole Sodium (Pantoprazole Sodium) 40 Mg Tablet., 40 MG PO BID, (Reported) GME ATTESTATION GME ATTESTATION My faculty preceptor for this patient encounter was physically present during the encounter and was fully available. All aspects of the patient interview, examination, medical decision making process, and medical care plan development were reviewed and approved by the faculty preceptor. The faculty preceptor is aware and concurs with the plan as stated in the body of this note and will at test to such by his/her cosignature. Candido Foster MD Feb 08, 2021 17:06
[2021-02-08] MEDS: LevoFLOXacin IV 500 MG in IV 1 EA IV SCH (18:14)
[2021-02-08 20:00] VITALS: BP 141/77
--- NOTE | 2021-02-08 22:22 | REPVR ---
PROCEDURE INFORMATION: Exam: MR Lumbar Spine Without and With Contrast Exam date and time: 02/08/2021 8:30 PM Age: 55 years old Clinical indication: Other: Mssa bactermia; Low back pain; Additional info: Back pain, mssa bactermia TECHNIQUE: Imaging protocol: Multiplanar magnetic resonance images of the lumbar spine without and with intravenous contrast. Contrast material: PROHANCE; Contrast volume: 14 ml; Contrast route: INTRAVENOUS (IV); COMPARISON: 1. CT ABD PELVIS W/O CONTRAST 2021-02-07 18:[address] ABD PELVIS WITH CONTRAST 2021-01-25 11:41 FINDINGS: Vertebrae: Normal lumbar lordosis and vertebral alignments. Right superior L5 endplate small depression deformity, and subjacent T2 signal hyperintensity and mild paravertebral T2 thickening. Suspect small recent Schmorl's node cavity or tiny endplate fracture. Spinal cord: Normal signal. No cord compression. L1-L2: No significant disc disease. No significant spinal canal stenosis. No neural foraminal stenosis. L2-L3: No significant disc disease. No significant spinal canal stenosis. No neural foraminal stenosis. L3-L4: No significant disc disease. No significant spinal canal stenosis. No neural foraminal stenosis. L4-L5: Disc desiccation with a small disc bulge and mild facet arthropathy and ligamentum flavum thickening. Small synovial cysts project behind the right L4-L5 facet. Right L4-L5 facet synovitis. L5-S1: Degenerative disc desiccation with disc bulging and mild moderate left facet arthropathy causes mild left subarticular and foraminal narrowing. Sacrum/coccyx: Abnormal T1 hypointensity along the anterior left sacroiliac joint. Soft tissues: T2 signal hyperintensity, and enhancement within the right posterior paraspinous muscle extending from L3-S1, probably degenerative and additionally related to a muscle strain. Cannot exclude septic facet joint. Though favor degenerative and or traumatic causes. No fluid collections in a spinal canal or soft tissues. IMPRESSION: 1. T2 signal hyperintensity, and enhancement within the right posterior paraspinous muscle extending from L3-S1, probably degenerative and additionally related to a muscle strain. Right L4-L5 facet synovitis. Cannot exclude septic facet joint. Though favor degenerative and or traumatic causes. 2. Right superior L5 endplate small depression deformity, and subjacent T2 signal hyperintensity and mild paravertebral T2 thickening. Suspect small recent Schmorl's node cavity or tiny endplate fracture. 3. Abnormal T1 hypointensity along the anterior left sacroiliac joint. Correlate for left sacroiliitis septic versus aseptic, favor aseptic. 4. No fluid collections in a spinal canal or soft tissues. Electronically signed by: Kota Abbott On 02/08/2021 22:22:00 PM
--- NOTE | 2021-02-08 22:24 | REPVR ---
PROCEDURE INFORMATION: Exam: MR Thoracic Spine Without and With Contrast Exam date and time: 02/08/2021 8:30 PM Age: 55 years old Clinical indication: Other: Mssa bactermia; Pain in thoracic spine; Additional info: Back pain, mssa bactermia TECHNIQUE: Imaging protocol: Multiplanar magnetic resonance images of the thoracic spine without and with contrast. Contrast material: PROHANCE; Contrast volume: 14 ml; Contrast route: INTRAVENOUS (IV); COMPARISON: 1. CT ABD PELVIS W/O CONTRAST 2021-02-07 18:[address] ABD PELVIS WITH CONTRAST 2021-01-25 11:41 FINDINGS: Vertebrae: Normal spinal curvature, vertebral body heights, and alignment. No spinal fracture or acute subluxation. Minimal paraspinous endplate osteophytes. Small T3 vertebral hemangioma. Advanced C5-C7 degenerative disc disease with endplate marrow signal change. Spinal cord: Normal signal. No cord compression. Discs/Spinal canal/Neural foramina: No significant disc disease. No significant spinal canal stenosis. Soft tissues: Unremarkable. IMPRESSION: No evidence of infection in the thoracic spine. Electronically signed by: Kota Abbott On 02/08/2021 22:24:15 PM
[2021-02-09] VITALS: BP 120/64
[2021-02-09] MEDS: ONDANSETRON 4MG/2ML VIAL IV PRN ×2 (00:25→04:27)
[2021-02-09] MEDS: MORPHINE 2 MG/ML 1ML VIAL (J2270) IV PRN ×3 (00:26→08:46)
[2021-02-09] MEDS: NS 1,000 ML IV SCH (02:07)
[2021-02-09] MEDS: ceFAZolin SOD 2 GM in IV 1 EA IV SCH ×2 (03:33→12:44)
[2021-02-09 04:00] VITALS: BP 142/72
[2021-02-09 06:05] LABS: HEMATOCRIT 32.9 % (42.0-52.0); HEMOGLOBIN 10.1 g/dl (13.5-17.5); MEAN CORPUSCULAR HEMOGLOBIN 28.5 pg (27.0-33.0); MEAN CORPUSCULAR HGB CONC 30.7 g/dl (32.0-36.5); MEAN CORPUSCULAR VOLUME 92.7 fl (80.0-96.0); PLATELET COUNT, AUTOMATED 399 10^3/uL (150-450); RED BLOOD COUNT 3.55 10^6/uL (4.30-6.10); WHITE BLOOD COUNT 10.8 10^3/uL (4.0-10.0)
[2021-02-09 06:24] LABS: ALBUMIN 2.1 GM/DL (3.2-5.2); ALT/SGPT 15 U/L (12-78); BILIRUBIN,TOTAL 0.3 MG/DL (0.2-1.0); BLOOD UREA NITROGEN 11 MG/DL (7-18); CALCIUM LEVEL 8.8 MG/DL (8.5-10.1); CARBON DIOXIDE LEVEL 29 MEQ/L (21-32); CHLORIDE LEVEL 101 MEQ/L (98-107); CREATININE FOR GFR 0.79 MG/DL (0.70-1.30); GLOMERULAR FILTRATION RATE > 60.0 (>56); GLUCOSE, FASTING 104 MG/DL (70-100); POTASSIUM SERUM 4.1 MEQ/L (3.5-5.1); SODIUM LEVEL 135 MEQ/L (136-145); TOTAL PROTEIN 7.2 GM/DL (6.4-8.2)
[2021-02-09] MEDS: LACTOBACILLUS ACIDOPHILUS CAP (BACID) PO SCH (08:45)
[2021-02-09] MEDS: SUCRALFATE SUSP 1GM/10ML UD PO SCH (08:45)
[2021-02-09] MEDS: PANTOPRAZOLE 40MG VIAL (C9113 PER 1) IV SCH (08:45)
[2021-02-09 08:46] VITALS: BP 147/87
[2021-02-09 08:57] LABS: MAGNESIUM LEVEL 1.8 MG/DL (1.8-2.4); THYROID STIMULATING HORMONE 2.11 uIU/ML (0.358-3.740)
[2021-02-09] MEDS ORDERED: traMADol 50 MG TAB PO PRN (10:15)
[2021-02-09] MEDS ORDERED: SUCRALFATE 1 GM TAB PO SCH (12:00)
[2021-02-09] MEDS ORDERED: SUCR1TA PO (12:10)
[2021-02-09] MEDS ORDERED: RISATAB3 PO (12:10)
--- NOTE | 2021-02-09 17:37 | DS.PDOC ---
Discharge Summary General Date of Admission Feb 07, 2021 at 14:30 Date of Discharge 02/09/21 Attending Physician: Jerilyn Harmon MD Discharge Summary PROCEDURES PERFORMED DURING STAY: None ADMITTING DIAGNOSES: Abdominal pain, n/v/d r/o infectious cause SIRS + Recent MSSA bacteremia 2/2 infectious bursitis, acute osteomyelitis of bilateral clavicles on IV Cefazolin followed by Dr. Godinez Recent GI bleed 2/2 duodenal ulcer HFpEF (EF 5560 percent) Hx of tobacco use DISCHARGE DIAGNOSES: Abdominal pain with n/v/d 2/2 to gastroenteritis R/o septic facet joint in lumbar spine R/o left sacroilitis septic vs. aseptic Recent MSSA bacteremia 2/2 infectious bursitis, acute osteomyelitis of bilateral clavicles on IV Cefazolin followed by Dr. Godinez Recent GI bleed 2/2 duodenal ulcer HFpEF (EF 5560 percent) Hx of tobacco use COMPLICATIONS/CHIEF COMPLAINT: Abdominal Pain. HISTORY OF PRESENT ILLNESS: Patient is a 55-year-old male with past medical history of recent hospitalizat ion (01/16/21-01/25/21) where he was treated for MSSA bacteremia secondary to MSSA bacteremia 2/2 infectious bursitis, acute osteomyelitis of bilateral clavicles on IV Cefazolin, recent GI bleed 2/2 duodenal ulcer, HFpEF (EF 5560 percent) presented to [facility] directly from infectious disease clinic after presenting with increasing abdominal pain, nausea, vomiting, diarrhea over the past 24 hours. The patient has been receiving IV cefazolin as outpatient since discharge from the hospital and following up closely with Dr. Godinez (infectious disease). The patient states early this morning he developed acute nausea with vomiting, nonbloody. He's had a total of 10 vomiting episodes, chills, shortness of breath with increased pain only, nonbloody diarrhea 3 which is also foul-smelling watery. He has also felt increasingly weak with decreased appetite. He denies fevers, chest pain, cough, lightheadedness or dizziness. He had a follow-up at infectious disease clinic today where Dr. Godinez evaluated him and found him to look very ill. Labs showed elevated lactic acid, WBC 19.1, sinus tachycardic at 141. Abdominal pain was described to be primarily in the right and left lower quadrant; however, on exam he also displayed tenderness in the left and right upper quadrant. Hospitalists were called for direct admission from their office. HOSPITAL COURSE: Upon arrival to the hospital, vital signs were stable and tachycardia have resolved. The patient appeared ill and continued to have the abdominal pain. The patient admitted to dysuria as well as denied any new sexual contacts, penile discharge, new rashes. The patient was ultimately admitted to the hospitalist service for abdominal pain/diarrhea rule out infectious cause, SIRS. The following issues were addressed and treated/managed while hospitalized: Abdominal pain with n/v/d likely 2/2 to gastroenteritis, resolved SIRS -WBC improving, resolved abd pain, resolved n/v/d, tachycardia -GI panel neg but does not test for everything -Denies any new sexual contacts, penile discharge or rashes -CT abd/pelvis above -Blood cultures NG, UCx neg -Tolerated regular diet -D/c home with cefazolin IV, probiotic R/o septic facet joint in lumbar spine / ? left sacroilitis septic vs. aseptic -Hx of MSSA bacteremia, r/o seeding . Has chronic back pain from DDD at baseline and patient states this has not worsened -Discussed MRI's with Dr. Pang who cannot r/o septic joint; however, could also be degenerative disease. -Recommending MRI in 7-10 days if back pain persists -Discussed with Dr. Godinez. Recommend d/c home to f/u with her in her office within next 7-10 days -For now c/w IV cefazolin as before Recent MSSA bacteremia 2/2 infectious bursitis, acute osteomyelitis of bilateral clavicles on IV Cefazolin followed by Dr. Godinez -S/p Right acromioclavicular joint irrigation and debridement and bone biopsy, left acromioclavicular joint irrigation and debridement and bone biopsy last admission -S/p TTE, ruled out endocarditis -Repeat BCx neg -Still receiving IV cefazolin for total of 4 weeks as o/p, following with Dr. Godinez Recent GI bleed 2/2 duodenal ulcer -CBC stable -No s/s of bleeding -Sent in new script for sucralfate, C/w PPI HFpEF (EF 560 percent) -Stable -F/u with PCP Septic emboli in lungs, dx with MSSA bacteremia above -Seen on CXR this admission -See treatment above -On RA Hx of tobacco use -Quit 1 mo ago DISCHARGE MEDICATIONS: Please see below. ALLERGIES: Please see below. PHYSICAL EXAMINATION ON DISCHARGE: VS: Please see below CONSTITUTIONAL: Appears uncomfortable in bed , mild distress, AAO x 3 EYES: PERRLA, EOM intact HENT, MOUTH: Normocephalic, atraumatic, moist mucous membranes NECK: SUPPLE, no JVD, no lymphadenopathy, no carotid bruit CV: Regular rate and rhythm, S1S2 normal, no murmurs/rubs/gallops RESPIRATORY: Clear to auscultation bilaterally, no rales/rhonchi/wheezes GI: tenderness diffusely in abdomen, greater in right and left lower quadrant, BS positive in 4 quadrants, soft, nondistended, + guarding, no organomegaly : Deferred MUSCULOSKELETAL: Normal ROM. No cyanosis, clubbing, swelling, joint deformity, extremity edema INTEGUMENTARY: PICC line. Incision stitches out of bilateral shoulders and now steri strips are present on incisions, appear well healing, no increased erythema, swelling or redness in this area. Otherwise skin is intact, no rashes, no lesions, no erythema NEUROLOGIC: Cranial Nerves II-XII are intact, no focal deficits PSYCHIATRIC: Mood and affect are normal LABORATORY DATA: Please see below. IMAGING: Lumbar spine MRI: 1. T2 signal hyperintensity, and enhancement within the right posterior paraspinous muscle extending from L3-S1, probably degenerative and additionally related to a muscle strain. Right L4-L5 facet synovitis. Cannot exclude septic facet joint. Though favor degenerative and or traumatic causes. 2. Right superior L5 endplate small depression deformity, and subjacent T2 signal hyperintensity and mild paravertebral T2 thickening. Suspect small recent Schmorl's node cavity or tiny endplate fracture. 3. Abnormal T1 hypointensity along the anterior left sacroiliac joint. Correlate for left sacroiliitis septic versus aseptic, favor aseptic. 4. No fluid collections in a spinal canal or soft tissues. Thoracic spine MRI: No evidence of infection in the thoracic spine. CT abd/pelvis: 1. There is been partial resolution of bibasilar pulmonary nodules (some of which were cavitary) and areas of consolidation, and continued follow-up is recommended. A follow-up noncontrast CT of the chest should be performed. 2. No acute intra-abdominal inflammatory change. However, colitis cannot be excluded. CXR: Right lower lobe opacities requires follow-up to resolution. PROGNOSIS: good ACTIVITY: As tolerated DIET: regular DISPOSITION: 01 Home, Self-Care. DISCHARGE INSTRUCTIONS/ ITEMS TO FOLLOWUP ON ON OUTPATIENT: 1. Your home antibiotic (IV Cefazolin) will continue as before when you are discharged. Please follow up with Dr. Godinez's clinic after the weekend to schedule next appointment. 2. We found possible areas of bacterial infection in your lumbar spine, possible thoracic. You may require follow up MRI in 7-10 days to see if still present per radiology . This has been discussed with Dr. Godinez prior to discharge. 3. A new patient appointment for your PCP is coming up. Please keep and bring these discharge papers with you. 4. If any increased fevers, chills, increased back pain, shortness of breath please let a medical professional know. DISCHARGE CONDITION:Stable TIME SPENT ON DISCHARGE: 40 minutes. Vital Signs/I&Os Vital Signs Date Time Temp Pulse Resp B/P (MAP) Pulse Ox O2 Delivery O2 Flow Rate FiO2 02/09/21 13:12 18 Room Air 02/09/21 08:46 98.3 75 147/87 (107) 99 I&O- Last 24 Hours up to 6 AM 02/09/21 06:00 Intake Total 600 ml Output Total 1800 ml Balance -1200 ml Laboratory Data Labs 24H Laboratory Tests 2 02/09/21 05:38: Nucleated Red Blood Cells % (auto) 0.0, Anion Gap 5L, Glomerular Filtration Rate > 60.0, Lactic Acid Level 1.0, Calcium Level 8.8, Total Bilirubin 0.3, Aspartate Amino Transf (AST/SGOT) 23, Alanine Aminotransferase (ALT/SGPT) 15, Alkaline Phosphatase 114, Total Protein 7.2, Albumin 2.1L, Albumin/Globulin Ratio 0.4 02/09/21 07:46: Magnesium Level 1.8, Thyroid Stimulating Hormone (TSH) 2.110 CBC/BMP Laboratory Tests 02/09/21 05:38 Microbiology Microbiology 02/07/21 Urine Culture - Final, Complete 02/07/21 Blood Culture - Preliminary, Resulted No Growth after 48 hours. All Specime... 02/07/21 Blood Culture - Preliminary, Resulted No Growth after 48 hours. All Specime... Discharge Medications Scheduled L.acidoph/L.bulg/B.bif/S.therm (Lyndsey-Bid Caplet) 1 Each Tablet, 1 EA PO BIDWM Pantoprazole Sodium (Pantoprazole Sodium) 40 Mg Tablet.dr, 40 MG PO BID, (Reported) Sucralfate (Sucralfate) 1 Gm Tablet, 1 GM PO ACHS Allergies Coded Allergies: latex (Verified Allergy, Unknown, 01/10/21) rash/hives Jerilyn Harmon MD Feb 09, 2021 17:37
--- NOTE | 2021-02-09 19:41 | ECGEPIP ---
[facility] Test Date: 2021-02-09 Pat Name: MINA NARANJO Department: Room: [place] [address] Gender: Male Monotypist: courtney cook rn : 1965 Requested By: SHAYLA BUSTAMANTE Order Number: [id number] Reading MD: Jonna Lagunas Measurements Intervals [place] Rate: 68 P: -7 MO: 162 QRS: -45 QRSD: 154 T: -89 QT: 468 QTc: 497 Interpretive Statements Sinus rhythm Left axis deviation Left bundle branch block No change since 02/07/21 Electronically Signed on 02-09-2021 19:40:40 EST by Jonna Lagunas
[2021-02-09] MEDS ORDERED: PANTOPRAZOLE 40MG TAB (PROTONIX) PO SCH (21:00)
== END 2021-02-09 14:06 | disposition home or self-care (01) | DRG 392 ==
LOC: M ED INP 14:30 → M PCU 14:44
PROVIDERS: ADMIT Internal Medicine; ATTEND Internal Medicine
DX: K52.9 Noninfective gastroenteritis and colitis, unspecified (principal); I50.32 Chronic diastolic (congestive) heart failure; R65.10 Systemic inflammatory response syndrome (SIRS) of non-infectious origin without acute organ dysfunction; Z87.891 Personal history of nicotine dependence; Z79.899 Other long term (current) drug therapy; Z91.040 Latex allergy status; Z20.822 Contact with and (suspected) exposure to COVID-19; R11.2 Nausea with vomiting, unspecified

== ENCOUNTER → 2021-02-07 | Outpatient (REF) | payer MEDICARE ==
[2021-02-07 14:32] LABS: BASO # 0.2 10^3/uL (0.0-0.2); BASO % 0.8 % (0.0-1.0); EOS # 0.1 10^3/uL (0.0-0.5); EOS % 0.5 % (0.0-3.0); HEMATOCRIT 36.4 % (42.0-52.0); HEMOGLOBIN 10.9 g/dl (13.5-17.5); LYMPH % 10.5 % (24.0-44.0); MEAN CORPUSCULAR HEMOGLOBIN 28.3 pg (27.0-33.0); MEAN CORPUSCULAR HGB CONC 29.9 g/dl (32.0-36.5); MEAN CORPUSCULAR VOLUME 94.5 fl (80.0-96.0); MONO # 0.6 10^3/uL (0.0-0.8); MONO % 3.3 % (2.0-8.0); NEUTROPHILS # 15.3 10^3/uL (1.5-8.5); PLATELET COUNT, AUTOMATED 501 10^3/uL (150-450); RED BLOOD COUNT 3.85 10^6/uL (4.30-6.10); WHITE BLOOD COUNT 19.1 10^3/uL (4.0-10.0)
[2021-02-07 15:04] LABS: ALBUMIN 2.6 GM/DL (3.2-5.2); ALT/SGPT 14 U/L (12-78); BILIRUBIN,TOTAL 0.3 MG/DL (0.2-1.0); BLOOD UREA NITROGEN 15 MG/DL (7-18); CALCIUM LEVEL 9.8 MG/DL (8.5-10.1); CARBON DIOXIDE LEVEL 27 MEQ/L (21-32); CHLORIDE LEVEL 97 MEQ/L (98-107); CREATININE FOR GFR 0.86 MG/DL (0.70-1.30); GLOMERULAR FILTRATION RATE > 60.0 (>56); GLUCOSE, FASTING 158 MG/DL (70-100); POTASSIUM SERUM 5.2 MEQ/L (3.5-5.1); SODIUM LEVEL 133 MEQ/L (136-145); TOTAL PROTEIN 8.3 GM/DL (6.4-8.2)
== END ==
LOC: M LAB REF 13:57
PROVIDERS: ATTEND Internal Medicine Infectious Disease
DX: R11.2 Nausea with vomiting, unspecified (principal)

== ENCOUNTER → 2021-02-21 | Outpatient (REF) | payer MEDICARE ==
[~2021-02-21] MED LIST changes: +RISATAB3 PO; +SUCR1TA PO
[2021-02-21 18:30] LABS: APPEARANCE, URINE CLOUDY (CLEAR); BACTERIA, URINE AUTO NEGATIVE (NEGATIVE); BILIRUBIN, URINE AUTO NEGATIVE (NEGATIVE); BLOOD, URINE BLOOD 1+ (NEGATIVE); CALCIUM OXALATE CRYSTALS SMALL; COLOR, URINE YELLOW (YELLOW); GLUCOSE, URINE (UA) AUTO NEGATIVE (NEGATIVE); KETONE, URINE AUTO TRACE mg/dL (NEGATIVE); LEUKOCYTE ESTERASE, URINE AUTO NEGATIVE (NEGATIVE); MUCUS, URINE SMALL (NEGATIVE); NITRITE, URINE AUTO NEGATIVE (NEGATIVE); PROTEIN, URINE AUTO 3+ mg/dL (NEGATIVE); RBC, URINE AUTO 4 /HPF (0-3); SPECIFIC GRAVITY URINE AUTO 1.026 (1.002-1.035); SQUAMOUS EPITHELIAL CELL UR AU 0 /HPF (0-6); UROBILINOGEN, URINE AUTO 0.2 mg/dL (0.0-2.0); WBC, URINE AUTO 7 /HPF (0-3)
== END ==
LOC: M SFHCPLAZ 17:16
PROVIDERS: ATTEND Internal Medicine Infectious Disease
DX: N30.00 Acute cystitis without hematuria (principal)

== ENCOUNTER → 2021-03-19 | Outpatient (REF) | payer MEDICARE ==
[2021-03-19 17:37] LABS: APPEARANCE, URINE CLEAR (CLEAR); BACTERIA, URINE AUTO NEGATIVE (NEGATIVE); BILIRUBIN, URINE AUTO NEGATIVE (NEGATIVE); BLOOD, URINE BLOOD 1+ (NEGATIVE); CALCIUM OXALATE CRYSTALS SMALL; COLOR, URINE YELLOW (YELLOW); GLUCOSE, URINE (UA) AUTO NEGATIVE (NEGATIVE); KETONE, URINE AUTO NEGATIVE (NEGATIVE); LEUKOCYTE ESTERASE, URINE AUTO NEGATIVE (NEGATIVE); MUCUS, URINE SMALL (NEGATIVE); NITRITE, URINE AUTO NEGATIVE (NEGATIVE); PROTEIN, URINE AUTO 2+ mg/dL (NEGATIVE); RBC, URINE AUTO 3 /HPF (0-3); SPECIFIC GRAVITY URINE AUTO 1.012 (1.002-1.035); SQUAMOUS EPITHELIAL CELL UR AU 0 /HPF (0-6); UROBILINOGEN, URINE AUTO 0.2 mg/dL (0.0-2.0); WBC, URINE AUTO 2 /HPF (0-3)
== END ==
LOC: M SMT 17:00
PROVIDERS: ATTEND Urology
DX: R30.0 Dysuria (principal)
CPT/HCPCS: 81001; G0463

== ENCOUNTER → 2021-06-27 | Outpatient (CLI) | payer MEDICARE ==
[~2021-06-27] MED LIST changes: -FLUC100T PO; +FLUC100T3 PO
[2021-06-28 23:07] LABS: PSA TOTAL 1.1 ng/mL (0.0-4.0)
== END ==
LOC: M LAB 10:41
PROVIDERS: ATTEND Urology
DX: R31.29 Other microscopic hematuria (principal)

== ENCOUNTER → 2021-07-03 | Outpatient (REF) | payer MEDICARE ==
[2021-07-03 17:31] LABS: APPEARANCE, URINE CLEAR (CLEAR); BACTERIA, URINE AUTO NEGATIVE (NEGATIVE); BILIRUBIN, URINE AUTO NEGATIVE (NEGATIVE); BLOOD, URINE BLOOD 1+ (NEGATIVE); COLOR, URINE YELLOW (YELLOW); GLUCOSE, URINE (UA) AUTO NEGATIVE (NEGATIVE); KETONE, URINE AUTO NEGATIVE (NEGATIVE); LEUKOCYTE ESTERASE, URINE AUTO NEGATIVE (NEGATIVE); MUCUS, URINE SMALL (NEGATIVE); NITRITE, URINE AUTO NEGATIVE (NEGATIVE); PROTEIN, URINE AUTO NEGATIVE (NEGATIVE); RBC, URINE AUTO 2 /HPF (0-3); SPECIFIC GRAVITY URINE AUTO 1.013 (1.002-1.035); SQUAMOUS EPITHELIAL CELL UR AU 0 /HPF (0-6); UROBILINOGEN, URINE AUTO 0.2 mg/dL (0.0-2.0); WBC, URINE AUTO 0 /HPF (0-3)
== END ==
LOC: M SMT 16:53
PROVIDERS: ATTEND Urology
DX: R31.29 Other microscopic hematuria (principal)

== ENCOUNTER → 2021-11-14 | Outpatient (CLI) | payer MEDICARE ==
[2021-11-14 09:59] LABS: CHOLESTEROL RISK RATIO 4.4 (<5)
== END ==
LOC: M LAB 08:30
PROVIDERS: ATTEND Student in an Organized Health Care Education/Training Program
DX: Z13.1 Encounter for screening for diabetes mellitus (principal); Z79.899 Other long term (current) drug therapy

== ENCOUNTER → 2021-11-19 | Outpatient (CLI) | payer MEDICARE ==
[2021-11-19 17:37] LABS: BASO # 0.1 10^3/uL (0.0-0.2); BASO % 0.7 % (0.0-1.0); EOS # 0.2 10^3/uL (0.0-0.5); HEMATOCRIT 46.1 % (42.0-52.0); HEMOGLOBIN 14.7 g/dl (13.5-17.5); LYMPH # 2.3 10^3/uL (1.5-5.0); LYMPH % 27.3 % (24.0-44.0); MEAN CORPUSCULAR HEMOGLOBIN 28.8 pg (27.0-33.0); MEAN CORPUSCULAR HGB CONC 31.9 g/dl (32.0-36.5); MEAN CORPUSCULAR VOLUME 90.2 fl (80.0-96.0); MONO # 0.5 10^3/uL (0.0-0.8); MONO % 6.4 % (2.0-8.0); NEUTROPHILS # 5.3 10^3/uL (1.5-8.5); NEUTROPHILS % 62.9 % (36.0-66.0); PLATELET COUNT, AUTOMATED 309 10^3/uL (150-450); RED BLOOD COUNT 5.11 10^6/uL (4.30-6.10); WHITE BLOOD COUNT 8.4 10^3/uL (4.0-10.0)
[2021-11-19 18:25] LABS: ERYTHROCYTE SEDIMENTATION RATE 7 mm/hr (0-20)
== END ==
LOC: M PLALAB 14:26
PROVIDERS: ATTEND Student in an Organized Health Care Education/Training Program
DX: M89.8X1 Other specified disorders of bone, shoulder (principal)

== ENCOUNTER → 2021-11-19 | Outpatient (REF) | payer MEDICARE ==
[2021-11-19 13:54] LABS: APPEARANCE, URINE MANUAL CLEAR (CLEAR); COLOR, URINE MANUAL YELLOW (YELLOW)
[2021-11-19 13:57] LABS: BILIRUBIN, URINE MANUAL NEGATIVE (NEGATIVE); BLOOD URINE MANUAL POSITIVE (NEGATIVE); GLUCOSE, URINE (UA) MANUAL NEGATIVE (NEGATIVE); KETONE, URINE MANUAL NEGATIVE (NEGATIVE); LEUKOCYTE ESTERASE, URINE MAN TRACE (NEGATIVE); NITRITE, URINE MANUAL NEGATIVE (NEGATIVE); PROTEIN, URINE MANUAL NEGATIVE (NEGATIVE); UROBILINOGEN, URINE MANUAL NORMAL (NORMAL)
[2021-11-19 14:24] LABS: BACTERIA, URINE NONE SEEN; HYALINE CAST, URINE NONE SEEN /lpf (0-1); MUCUS, URINE SMALL AMOUNT (NEGATIVE); SQUAMOUS EPITHELIAL CELL URINE SMALL AMOUNT /hpf (SMALL AMT); WBC, URINE 0-1 /hpf (0-3)
== END ==
LOC: M SMT 12:49
PROVIDERS: ATTEND Urology
DX: R31.29 Other microscopic hematuria (principal)